=== PATIENT | male | born 1970 | race Caucasian/White ===

== ENCOUNTER 2017-08-25 06:54 | Day surgery (SDC) | payer MEDICAID, SELFPAY ==
[2017-08-22 08:19] VITALS: BP 133/74; PULSE 71; RESP 16; TEMP 37.1; O2SAT 96; BMI 29.2
--- NOTE | 2017-08-22 08:35 | SDCEKG_ITS ---
Test Reason : Blood Pressure : / mmHG Vent. Rate : 071 BPM Atrial Rate : 071 BPM P-R Int : 168 ms QRS Dur : 084 ms QT Int : 392 ms P-R-T Axes : 030 012 013 degrees QTc Int : 425 ms Normal sinus rhythm Normal ECG Confirmed by DEANDRE MARSHALL, DANIEL ([id number]), mapping editor GAVIN KNOX ([id number]) on 08/24/2017 4:09:47 PM Referred By: Ru Moore Confirmed By:DANIEL CARRERA MD
[2017-08-22 09:05] LABS: Hematocrit 46.8 % (40-54); Mean Corp Hgb Conc 36.3 g/gl (32-36); Mean Corpuscular Hgb 33.2 pg (27.0-32.0); Mean Corpuscular Volume 91.4 fL (80-94); Mean Platelet Vol. 9.2 fl (6.2-12.0); Platelet Count 262 K/mm3 (150-450); RBC Distribution Width SD 43.2 fl (35.1-43.9); Red Blood Count 5.12 M/mm3 (4.6-6.2); White Blood Count 6.5 K/mm3 (4.4-11.0)
[2017-08-22 09:06] LABS: Scan Indicated on CBC? Y/N NO
[2017-08-22 09:11] LABS: International Normalized Ratio 1.1; Prothrombin Time (Protime)PT. 13.8 SECONDS (11.7-14.9)
[2017-08-22 09:50] LABS: AST(SGOT) 34 U/L (15-37); Alanine Aminotransfer ALT/SGPT 54 U/L (16-61); Albumin, Serum 3.7 g/dL (3.2-5.0); Alkaline Phosphatase 77 U/L (45-117); Anion Gap 8 (5-15); BUN 8 mg/dL (7-18); Bilirubin, Direct 0.28 mg/dL (0.00-0.30); Calcium,Total 8.6 mg/dL (8.5-10.1); Chloride 104 mmol/L (98-107); Creatinine, Serum 0.53 mg/dL (0.70-1.30); EST Glomerular Filtration Rate 175 mL/min (>60); Est Glom Filt Rate - Afr Amer 211 mL/min (>60); Estimated Creatinine Clearance 181.54 ml/min; Globulin 3.9 g/dL (2.2-4.2); Glucose 92 mg/dL (74-106); Potassium 4.1 mmol/L (3.5-5.1); Protein, Total 7.6 g/dL (6.4-8.2); Sodium Level 137 mmol/L (136-145)
[2017-08-22 14:02] LABS: Partial Thromboplast Time 29.1 Seconds (24.1-36.2)
[2017-08-25 07:20] VITALS: BP 159/80; PULSE 71; RESP 16; TEMP 36.6; O2SAT 94; BMI 29.2
--- NOTE | 2017-08-25 09:52 | PCM.DC.GS ---
Discharge Diet: Light diet - advance as tolerated - if you have questions about your diet instructions, please talk to you doctor. Discharge Activity: May Not Drive - for 1 week or while taking narcotic pain medicine. May shower in (days): 1 Lifting Restrictions: 10 pounds Call your doctor if your incision/area has: Continuous Slow Oozing, Sudden Increased Bleeding, Increased Pain/ Swelling, Increased Redness, Foul Smelling Discharge Call your doctor if you observe: Fever of 101 or Higher Suture Line Care: Avoid Pulling/Pushing, Avoid Pinching/Bending Additional Dressing/Incision Instructions:: Change or remove dressing in 4 days. Leave steri-strips in place for 1 week. Allergies/Adverse Reactions: Allergies No Known Allergies Allergy (Verified 08/22/17 08:15) Medications to take at Discharge cilostazol 100 mg tablet 100 mg PO BID 08/02/17 colchicine 0.6 mg tablet 0.6 mg PO PRN PRN 08/02/17 simvastatin 20 mg tablet 20 mg PO DAILY 08/02/17 valsartan 80 mg tablet 80 mg PO QDAY 08/02/17 Ibuprofen 200 mg PO PRN PRN 08/22/17 Multivitamin [Daily Multiple Vitamin] 1 each PO DAILY 08/22/17 Ranitidine [Zantac] 150 mg PO PRN PRN 08/22/17 Hydrocodone Bitart/Apap 5-325 [[place] 5MG-325MG] 1 tablet PO Q6H PRN PRN 3 Days #10 tablet 08/25/17 The following prescriptions were given: Hydrocodone Bitart/Apap 5-325 [[place] 5MG-325MG] 1 tablet PO Q6H PRN PRN 3 Days #10 tablet PRN Reason: Pain Primary Care Physician: Diomedes Corona, BOIL OFF MACHINE OPERATOR CLOTH-C [Primary Care Provider] - Please Follow Up With: Ru Moore MD - [phone] When: Call to make an appointment to be seen in about 10 days.
[2017-08-25] MEDS: Cefazolin 2 GM in 0.9% Normal Saline 100 ML IV (09:56)
[2017-08-25] MEDS: Bupivacaine Mpf 0.5% 30 ML VIAL (11:00)
[2017-08-25 11:26] VITALS: BP 159/80; BP 173/86; PULSE 109; RESP 18; TEMP 36.9; O2SAT 90
--- NOTE | 2017-08-25 11:29 | OP.PCM_ITS ---
Problem List (1) Right inguinal hernia Status: Acute Report of Operation Date of Procedure: 08/25/17 Pre-Operative Diagnosis: Right inguinal hernia with bowel involvement Post-Operative Diagnosis: Very large reduced direct right inguinal hernia Surgery/Procedure Performed:: Laparoscopic right inguinal herniorrhaphy Description of Surgical Findings:: Timeout and informed consent was obtained. 47-year-old gent was taken to the operating room he was placed supine on the table. He underwent general endotracheal intubation anesthesia. The abdomen sterilely prepped draped. 0.5 % Marcaine was used as a local anesthetic. Skin sites were pre-anesthetized. A vertical infraumbilical incision was created holding sutures of 0 Vicryl placed. Varies needle inserted. Saline drop test performed. The abdomen was insufflated CO2 to a pressure of 10 mmHg pressure. Carmen trocar inserted. 10 lap scope inserted. Five-minute trochars in place in the right left lower quadrant. The left groin was solid and intact. Very large direct right anal hernia with multiple loops of bowel which were reducible. There were adhesions of omentum to the mid epigastric area the abdomen. No evidence of bowel involvement in that location. The peritoneum superior lateral to the internal ring was incised carried medially. The peritoneum was tediously dissected free the very large direct site was tediously completely dissected free were needed hemostasis obtained with hemoclips. The direct indirect and femoral area was completely bluntly dissected free were needed sharp dissection and blunt dissection was instituted. Now the very small defect at the indirect area the much larger defect in the rectal area the bladder had been identified a Bard 3D max large right-sided mesh was utilized. [id number]. Expiry date 05/24/2021. Was placed in position. It was secured laterally medially superiorly with secure strap. I did feel that I got good approximation of the mesh. The defect then was closed partly with a very large hernia sac to assure that the mesh would lie in correct position. The abdomen was allowed to deflate of CO2. The hernia repair appear to be solid and intact trochars removed and visualization the abdomen was allowed to deflate fashion and the like is with interrupted 0 Vicryl figure 8 suture skin is approximated up to 4 Monocryl subdermal stitches Steri-Strips Telfa and OpSite dressings applied sponge instrument and needle counts were reported the surgeon for correct blood loss was minimal he tired procedure well was taken to recovery in satisfactory condition Specimens none. Drains none. Blood loss minimal. Ru Moore M.D., F.A.C.S. Type of Anesthesia:: General
[2017-08-25 11:30] VITALS: BP 145/83; BP 159/80; PULSE 91; RESP 18; O2SAT 91
[2017-08-25 11:45] VITALS: BP 140/70; BP 159/80; PULSE 92; RESP 18; O2SAT 93
[2017-08-25 12:00] VITALS: BP 132/67; BP 159/80; PULSE 85; RESP 18; TEMP 37.1; O2SAT 90
[2017-08-25 13:36] VITALS: BP 159/80
== END 2017-08-25 12:45 | disposition home or self-care (01) ==
LOC: SDC 06:54 → AC 06:54
PROVIDERS: Anesthesiology; Family Provider Nurse Practitioner Family; PCP Nurse Practitioner Family; Visit Provider Surgery
PROC: (CPT 49650; principal; 2017-08-25 08:45)
DX: K40.90 Unilateral inguinal hernia, without obstruction or gangrene, not specified as recurrent (principal); I10 Essential (primary) hypertension; I73.9 Peripheral vascular disease, unspecified; E78.5 Hyperlipidemia, unspecified; F17.200 Nicotine dependence, unspecified, uncomplicated; K21.9 Gastro-esophageal reflux disease without esophagitis; Z86.711 Personal history of pulmonary embolism; Z79.899 Other long term (current) drug therapy
CPT/HCPCS: 49650; 80048; 80076; 85027; 85610; 85730; 93005; J7120; C1781; J2405

== ENCOUNTER → 2017-09-23 12:51 | Outpatient (CLI) | payer MEDICAID, SELFPAY ==
--- NOTE | 2017-10-05 08:32 | LEAS ---
Arterial Study - Arterial Study Arterial Study: Date of scan 09/23/[address] Reyes History: Patient with hypertension hyperlipidemia and right lower extremity atherosclerosis. Interpretation: Right lower extremity with decreased waveform noted at the ankle more flattened out through the digits duplex at the ankle is biphasic flow both vessels. SONY 0.5 the PT 0.46 of the DP. Left lower extremity is normal normal pulsatile flow at the ankle and out through the digits duplex with triphasic flow both vessels with an SONY 1.1 to the PT 1.09 at the DP. In impression: 1. Patient with moderate severe arterial occlusive disease of the right lower extremity an SONY 0.5. 2. No evidence of significant arterial occlusive disease at rest on the left lower extremity with an SONY 1.12
== END ==
PROVIDERS: Family Provider Nurse Practitioner Family; PCP Nurse Practitioner Family; Visit Provider Surgery Vascular Surgery
DX: M79.89 Other specified soft tissue disorders (principal); I70.211 Atherosclerosis of native arteries of extremities with intermittent claudication, right leg; M10.9 Gout, unspecified; K21.9 Gastro-esophageal reflux disease without esophagitis; I10 Essential (primary) hypertension; F17.200 Nicotine dependence, unspecified, uncomplicated; F10.10 Alcohol abuse, uncomplicated; Z86.711 Personal history of pulmonary embolism
CPT/HCPCS: 93922

== ENCOUNTER → 2017-11-16 12:57 | Outpatient (CLI) | payer MEDICAID, SELFPAY ==
--- NOTE | 2017-11-16 13:00 | VDLE_ITS ---
Reason For Study: SWELLING RIGHT LEFT GSV is normal. CFV is compressible, spontaneous, phasic, CFV is compressible, spontaneous, phasic, competent, and demonstrates normal competent and demonstrates normal augmentation. augmentation. Acute deep vein thrombosis is noted in the right femoral vein. Acute deep vein thrombosis is noted in the right popliteal vein. Acute deep vein thrombosis is noted in the right peroneal vein. Acute deep vein thrombosis is noted in the right posterior tibial vein. Procedure Exam performed in department. A preliminary report was called and/or faxed to Dr Reyes. Interpretation Summary 1. right leg DVT of FV, popliteal vein, peroneal vein, and posterior tibial vein. Right CFV normal. Ordering Physician: Socrates Reyes Referring Physician: TIMOTHY NINO Performed By: Tiffanie Oakley, DANIEL, RVT
== END ==
PROVIDERS: Family Provider Nurse Practitioner Family; PCP Nurse Practitioner Family; Visit Provider Surgery Vascular Surgery
DX: M79.89 Other specified soft tissue disorders (principal); M79.604 Pain in right leg
CPT/HCPCS: 93971

== ENCOUNTER → 2018-06-14 | Outpatient (CLI) | payer MEDICAID, SELFPAY ==
--- NOTE | 2018-06-14 12:56 | VDLE_ITS ---
Reason For Study: F/U RLE DVT RIGHT LEFT GSV is normal. CFV is compressible, spontaneous, phasic, CFV is compressible, spontaneous, phasic, competent, and demonstrates normal competent and demonstrates normal augmentation. augmentation. FV, POP V, and T/P trunk are partially compressible with intraluminal echoes and diminished blood flow and doppler signal. PTV is compressible. RT PerV is compressible. Procedure Exam performed in department. Interpretation Summary 1. Right chronic DVT in veins listed above. Ordering Physician: Socrates Reyes Referring Physician: Socrates Reyes Performed By: Roro Sharma RVT
== END | disposition home or self-care (01) ==
LOC: CVS 12:54
PROVIDERS: Family Provider Nurse Practitioner Family; PCP Nurse Practitioner Family; Referring Provider Surgery Vascular Surgery; Visit Provider Surgery Vascular Surgery
DX: M79.89 Other specified soft tissue disorders (principal); I82.90 Acute embolism and thrombosis of unspecified vein; I70.211 Atherosclerosis of native arteries of extremities with intermittent claudication, right leg; M10.9 Gout, unspecified; K21.9 Gastro-esophageal reflux disease without esophagitis; F10.10 Alcohol abuse, uncomplicated; F17.200 Nicotine dependence, unspecified, uncomplicated; Z86.711 Personal history of pulmonary embolism
CPT/HCPCS: 93971

== ENCOUNTER → 2019-03-01 09:46 | Outpatient (CLI) | payer MEDICAID, SELFPAY ==
--- NOTE | 2019-03-01 13:08 | PFTCOMP_ITS ---
COMPLETE PULMONARY FUNCTION TEST INTERPRETATION Brief HPI: Patient is a 48 year old male, currently under the care of Diomedes Corona, who presents to [facility] for complete pulmonary function tests secondary to diagnosis of dyspnea. Respiratory therapist reports good effort and reproducible results. Interpretation: Forced expiration spirometry shows no large airways obstructive ventilatory defect with an FEV1 of 70% predicted. There is no significant bronchodilator response by strict ATS criteria. Spirograms are of good quality and plateau normally. The respiratory flow volume loop shows a normal pattern. Lung volumes by body plethysmography show a normal total lung capacity at 6.67 L, 94% predicted. All other lung volumes are within normal limits. Diffusion capacity by carbon monoxide is normal at 82% predicted. The airway resistance is normal. No previous pulmonary function tests were available for review. Impression: These pulmonary function tests are grossly within normal limits.
== END ==
PROVIDERS: Family Provider Nurse Practitioner Family; PCP Nurse Practitioner Family; Referring Provider Nurse Practitioner Family; Visit Provider Nurse Practitioner Family
DX: R06.02 Shortness of breath (principal); Z72.0 Tobacco use
CPT/HCPCS: 94060; 94726; 94729

== ENCOUNTER → 2019-04-17 | Outpatient (CLI) | payer MEDICAID, SELFPAY ==
--- NOTE | 2019-04-17 10:02 | ART_ITS ---
Reason For Study: atherosclerosis Procedure A bilateral lower extremity continuous wave Doppler with analog waveform analysis and ankle brachial indexes. Left Segmental Pressures Left brachial= 163mmHg. Left posterior tibial artery = 197mmHg. Left dorsalis pedis artery = 180mmHg. The left dorsalis pedis waveforms are triphasic. The left posterior tibial artery waveforms are triphasic. Right Segmental Pressures Right brachial= 170mmHg. Right posterior tibial artery = 99mmHg. Right dorsalis pedis artery = 92mmHg. The right dorsalis pedis waveforms are monophasic. The right posterior tibial artery waveforms are monophasic. Indices The right ankle brachial index by the dorsalis pedis is .54. The right ankle brachial index by the posterior tibial artery is .58. The left ankle brachial index by the dorsalis pedis is 1.06. The left ankle brachial index by the posterior tibial artery is 1.16. Interpretation Summary 1. Right leg with monophasic flow and SONY 0.58. 2. Left leg wiht triphasic flow and SONY 1.16. Ordering Physician: Socrates Reyes Performed By: SUSAN CARMONA Tracee
== END | disposition home or self-care (01) ==
LOC: CVS 09:57
PROVIDERS: PCP Nurse Practitioner Family; Referring Provider Surgery Vascular Surgery; Visit Provider Surgery Vascular Surgery
DX: I70.211 Atherosclerosis of native arteries of extremities with intermittent claudication, right leg (principal); M10.9 Gout, unspecified; M79.89 Other specified soft tissue disorders; K21.9 Gastro-esophageal reflux disease without esophagitis; F10.10 Alcohol abuse, uncomplicated; I10 Essential (primary) hypertension; F17.200 Nicotine dependence, unspecified, uncomplicated; Z86.711 Personal history of pulmonary embolism; Z86.718 Personal history of other venous thrombosis and embolism
CPT/HCPCS: 93922

== ENCOUNTER → 2019-10-16 12:11 | Outpatient (CLI) | payer MEDICAID, SELFPAY ==
[2019-10-16 15:07] LABS: Hematocrit 52.4 % (40-54); Mean Corp Hgb Conc 34.4 g/dL (32-36); Mean Corpuscular Hgb 32.5 pg (27.0-32.0); Mean Corpuscular Volume 94.8 fL (80-94); Mean Platelet Vol. 9.9 fl (6.2-12.0); Platelet Count 287 K/mm3 (150-450); RBC Distribution Width CV 12.3 % (11.6-14.6); RBC Distribution Width SD 43.3 fl (35.1-43.9); Red Blood Count 5.53 M/mm3 (4.6-6.2); White Blood Count 6.9 K/mm3 (4.4-11.0)
[2019-10-16 15:23] LABS: ALB/GLOB Ratio 1.1 RATIO (0.9-2.4); AST(SGOT) 42 U/L (15-37); Alanine Aminotransfer ALT/SGPT 67 U/L (16-61); Alkaline Phosphatase 72 U/L (45-117); Anion Gap 4 (5-15); BUN 6 mg/dL (7-18); Calcium,Total 8.7 mg/dL (8.5-10.1); Chloride 104 mmol/L (98-107); Cholesterol 175 mg/dL (200); EST Glomerular Filtration Rate 151 mL/min (>60); Est Glom Filt Rate - Afr Amer 183 mL/min (>60); Globulin 3.6 g/dL (2.2-4.2); Glucose 106 mg/dL (74-106); High Density Lipoprotein 94 mg/dL; Protein, Total 7.6 g/dL (6.4-8.2); Sodium Level 134 mmol/L (136-145); Triglycerides 53 mg/dL; Very Low Density Lipoprotein 11 mg/dL (5-40)
== END ==
PROVIDERS: PCP Nurse Practitioner Family; Referring Provider Nurse Practitioner Family; Visit Provider Nurse Practitioner Family
DX: I10 Essential (primary) hypertension (principal); E78.5 Hyperlipidemia, unspecified; M10.9 Gout, unspecified
CPT/HCPCS: 36415; 80053; 80061; 84550; 85027

== ENCOUNTER → 2020-04-14 13:28 | Outpatient (CLI) | payer MEDICAID, SELFPAY ==
[2020-04-14 15:11] LABS: Hematocrit 52.7 % (40-54); Hemoglobin 17.8 g/dL (13.0-16.5); Mean Corp Hgb Conc 33.8 g/dL (32-36); Mean Corpuscular Volume 94.8 fL (80-94); Mean Platelet Vol. 9.8 fl (6.2-12.0); Platelet Count 209 K/mm3 (150-450); RBC Distribution Width CV 12.1 % (11.6-14.6); RBC Distribution Width SD 42.5 fl (35.1-43.9); Red Blood Count 5.56 M/mm3 (4.6-6.2); White Blood Count 6.8 K/mm3 (4.4-11.0)
[2020-04-14 15:42] LABS: ALB/GLOB Ratio 1.1 RATIO (0.9-2.4); AST(SGOT) 21 U/L (15-37); Alanine Aminotransfer ALT/SGPT 40 U/L (16-61); Alkaline Phosphatase 87 U/L (45-117); Anion Gap 8 (5-15); BUN 15 mg/dL (7-18); Calcium,Total 9.3 mg/dL (8.5-10.1); Chloride 103 mmol/L (98-107); Cholesterol 184 mg/dL (200); Creatinine, Serum 0.79 mg/dL (0.70-1.30); EST Glomerular Filtration Rate 110 mL/min (>60); Est Glom Filt Rate - Afr Amer 133 mL/min (>60); Globulin 3.8 g/dL (2.2-4.2); Glucose 123 mg/dL (74-106); High Density Lipoprotein 91 mg/dL; Potassium 4.1 mmol/L (3.5-5.1); Protein, Total 7.8 g/dL (6.4-8.2); Sodium Level 135 mmol/L (136-145); Triglycerides 31 mg/dL; Very Low Density Lipoprotein 6 mg/dL (5-40)
== END ==
PROVIDERS: PCP Nurse Practitioner Family; Referring Provider Nurse Practitioner Family; Visit Provider Nurse Practitioner Family
DX: E78.5 Hyperlipidemia, unspecified (principal); I73.9 Peripheral vascular disease, unspecified; I10 Essential (primary) hypertension
CPT/HCPCS: 36415; 80053; 80061; 85027

== ENCOUNTER → 2020-08-08 12:49 | Outpatient (CLI) | payer MEDICAID, SELFPAY ==
--- NOTE | 2020-08-08 12:53 | ART_ITS ---
Reason For Study: Atherosclerosis w/ claudication Procedure A bilateral lower extremity continuous wave Doppler with analog waveform analysis and ankle brachial indexes. Left Segmental Pressures Left brachial= 171mmHg. Left posterior tibial artery = 187mmHg. Left dorsalis pedis artery = 184mmHg. Left digit = 119 mmHg. The left dorsalis pedis waveforms are triphasic. The left posterior tibial artery waveforms are triphasic. Right Segmental Pressures Right brachial= 166mmHg. Right posterior tibial artery = 104mmHg. Right dorsalis pedis artery = 103mmHg. Right digit = 71 mmHg. The right dorsalis pedis waveforms are monophasic. The right posterior tibial artery waveforms are monophasic. Indices The right ankle brachial index by the dorsalis pedis is 0.60. The right ankle brachial index by the posterior tibial artery is 0.61. The right digital-brachial index is 0.42. The left ankle brachial index by the dorsalis pedis is 1.08. The left ankle brachial index by the posterior tibial artery is 1.09. The left digital-brachial index is 0.70. VL/Ankle Brachial Index Interpretation Summary Right leg with moderate occlusive disease with monophasic flow and an SONY 0.61. Left leg with triphasic flow and an SONY is 1.09. Ordering Physician: Socrates Reyes Referring Physician: Diomedes Corona Performed By: Arelis Mathew RVT
== END ==
PROVIDERS: PCP Nurse Practitioner Family; Referring Provider Surgery Vascular Surgery; Visit Provider Surgery Vascular Surgery
DX: I70.211 Atherosclerosis of native arteries of extremities with intermittent claudication, right leg (principal); F17.200 Nicotine dependence, unspecified, uncomplicated
CPT/HCPCS: 93922

== ENCOUNTER → 2020-10-17 11:57 | Outpatient (CLI) | payer MEDICAID, SELFPAY ==
[2020-10-17 15:17] LABS: Hematocrit 51.4 % (40-54); Hemoglobin 17.5 g/dL (13.0-16.5); Mean Corpuscular Hgb 32.8 pg (27.0-32.0); Mean Corpuscular Volume 96.4 fL (80-94); Mean Platelet Vol. 9.7 fl (6.2-12.0); Platelet Count 276 K/mm3 (150-450); RBC Distribution Width CV 12.7 % (11.6-14.6); RBC Distribution Width SD 45.3 fl (35.1-43.9); Red Blood Count 5.33 M/mm3 (4.6-6.2)
[2020-10-17 15:55] LABS: AST(SGOT) 23 U/L (15-37); Alanine Aminotransfer ALT/SGPT 44 U/L (16-61); Albumin, Serum 3.9 g/dL (3.2-5.0); Alkaline Phosphatase 77 U/L (45-117); Anion Gap 8 (5-15); BUN 7 mg/dL (7-18); BUN/Creat Ratio 10.4 RATIO (10-20); Chloride 102 mmol/L (98-107); Cholesterol 183 mg/dL (200); Creatinine, Serum 0.68 mg/dL (0.70-1.30); EST Glomerular Filtration Rate 132 mL/min (>60); Est Glom Filt Rate - Afr Amer 159 mL/min (>60); Glucose 93 mg/dL (74-106); High Density Lipoprotein 98 mg/dL; PSA,Total - Annual Screen 0.97 ng/mL (0.00-4.00); Potassium 3.8 mmol/L (3.5-5.1); Protein, Total 7.9 g/dL (6.4-8.2); Sodium Level 136 mmol/L (136-145); Triglycerides 36 mg/dL; Very Low Density Lipoprotein 7 mg/dL (5-40)
== END ==
PROVIDERS: PCP Nurse Practitioner Family; Referring Provider Nurse Practitioner Family; Visit Provider Nurse Practitioner Family
DX: I10 Essential (primary) hypertension (principal); E78.5 Hyperlipidemia, unspecified; R73.01 Impaired fasting glucose; Z12.5 Encounter for screening for malignant neoplasm of prostate
CPT/HCPCS: 36415; 80053; 80061; 83036; 84153; 85027; G0103

== ENCOUNTER 2021-04-21 13:10 | Outpatient (CLI) | payer MEDICAID, SELFPAY ==
[2021-04-21 15:14] LABS: Hematocrit 49.3 % (40-54); Hemoglobin 16.8 g/dL (13.0-16.5); Mean Corp Hgb Conc 34.1 g/dL (32-36); Mean Corpuscular Hgb 32.5 pg (27.0-32.0); Mean Corpuscular Volume 95.4 fL (80-94); Mean Platelet Vol. 9.5 fl (6.2-12.0); Platelet Count 307 K/mm3 (150-450); RBC Distribution Width SD 42.7 fl (35.1-43.9); Red Blood Count 5.17 M/mm3 (4.6-6.2); White Blood Count 6.6 K/mm3 (4.4-11.0)
[2021-04-21 15:30] LABS: AST(SGOT) 31 U/L (15-37); Alanine Aminotransfer ALT/SGPT 51 U/L (16-61); Albumin, Serum 3.8 g/dL (3.2-5.0); Alkaline Phosphatase 74 U/L (45-117); Anion Gap 7 (5-15); BUN 7 mg/dL (7-18); BUN/Creat Ratio 9.1 RATIO (10-20); Chloride 103 mmol/L (98-107); Cholesterol 174 mg/dL (200); Creatinine, Serum 0.77 mg/dL (0.70-1.30); EST Glomerular Filtration Rate 113 mL/min (>60); Est Glom Filt Rate - Afr Amer 136 mL/min (>60); Globulin 3.8 g/dL (2.2-4.2); Glucose 114 mg/dL (74-106); High Density Lipoprotein 93 mg/dL; Potassium 3.8 mmol/L (3.5-5.1); Protein, Total 7.6 g/dL (6.4-8.2); Sodium Level 135 mmol/L (136-145); Triglycerides 50 mg/dL; Uric Acid 5.4 mg/dL (3.5-7.2); Very Low Density Lipoprotein 10 mg/dL (5-40)
== END 2021-04-21 23:59 | disposition home or self-care (01) ==
LOC: MTLAB 13:11
PROVIDERS: PCP Nurse Practitioner Family; Referring Provider Nurse Practitioner Family; Visit Provider Nurse Practitioner Family
DX: D75.1 Secondary polycythemia (principal); I73.9 Peripheral vascular disease, unspecified; I10 Essential (primary) hypertension; R73.01 Impaired fasting glucose; E78.5 Hyperlipidemia, unspecified; M10.9 Gout, unspecified
CPT/HCPCS: 36415; 80053; 80061; 84550; 85027

== ENCOUNTER → 2021-10-20 | Outpatient (CLI) | payer MEDICAID, SELFPAY ==
[2021-10-20 15:05] LABS: Hematocrit 51.2 % (40-54); Mean Corp Hgb Conc 35.2 g/dL (32-36); Mean Corpuscular Hgb 33.5 pg (27.0-32.0); Mean Corpuscular Volume 95.2 fL (80-94); Mean Platelet Vol. 9.4 fl (6.2-12.0); Platelet Count 271 K/mm3 (150-450); RBC Distribution Width CV 12.8 % (11.6-14.6); Red Blood Count 5.38 M/mm3 (4.6-6.2)
[2021-10-20 15:16] LABS: Scan Indicated on CBC? Y/N YES- FLAGS NOTED
[2021-10-20 15:30] LABS: ALB/GLOB Ratio 0.9 RATIO (0.9-2.4); AST(SGOT) 32 U/L (15-37); Alanine Aminotransfer ALT/SGPT 57 U/L (16-61); Albumin, Serum 3.7 g/dL (3.2-5.0); Alkaline Phosphatase 75 U/L (45-117); Anion Gap 8 (5-15); BUN 7 mg/dL (7-18); BUN/Creat Ratio 10.3 RATIO (10-20); Calcium,Total 9.3 mg/dL (8.5-10.1); Chloride 101 mmol/L (98-107); Cholesterol 156 mg/dL (200); Creatinine, Serum 0.68 mg/dL (0.70-1.30); EST Glomerular Filtration Rate 130 mL/min (>60); Est Glom Filt Rate - Afr Amer 157 mL/min (>60); Globulin 4.1 g/dL (2.2-4.2); Glucose 98 mg/dL (74-106); High Density Lipoprotein 84 mg/dL; PSA,Total - Annual Screen 0.74 ng/mL (0.00-4.00); Protein, Total 7.8 g/dL (6.4-8.2); Sodium Level 136 mmol/L (136-145); Triglycerides 31 mg/dL; Very Low Density Lipoprotein 6 mg/dL (5-40)
[2021-10-21 11:56] LABS: Pathologist Review Reviewed
== END | disposition home or self-care (01) ==
LOC: MTLAB 11:26
PROVIDERS: PCP Nurse Practitioner Family; Referring Provider Nurse Practitioner Family; Visit Provider Nurse Practitioner Family
DX: D75.1 Secondary polycythemia (principal); I10 Essential (primary) hypertension; R73.01 Impaired fasting glucose; E78.5 Hyperlipidemia, unspecified; Z12.5 Encounter for screening for malignant neoplasm of prostate
CPT/HCPCS: 84153; 36415; 80053; 80061; 85027; G0103

== ENCOUNTER → 2021-11-16 | Outpatient (CLI) | payer MEDICAID, SELFPAY ==
--- NOTE | 2021-11-16 13:55 | ART_ITS ---
Reason For Study: Atherosclerosis Procedure A bilateral lower extremity continuous wave Doppler with analog waveform analysis and ankle brachial indexes. Left Segmental Pressures Left brachial= 151mmHg. Left posterior tibial artery = 162mmHg. Left dorsalis pedis artery = 163mmHg. Left digit = 114 mmHg. The left dorsalis pedis waveforms are triphasic. The left posterior tibial artery waveforms are triphasic. Right Segmental Pressures Right brachial= 172mmHg. Right posterior tibial artery = 84mmHg. Right dorsalis pedis artery = 88mmHg. Right digit = 70 mmHg. The right dorsalis pedis waveforms are monophasic. The right posterior tibial artery waveforms are monophasic. Indices The right ankle brachial index by the dorsalis pedis is 0.51. The right ankle brachial index by the posterior tibial artery is 0.49. The right digital-brachial index is 0.41. The left ankle brachial index by the dorsalis pedis is 0.95. The left ankle brachial index by the posterior tibial artery is 0.94. The left digital-brachial index is 0.66. VL/Ankle Brachial Index Interpretation Summary Right leg moderate occlussive disease with SONY 0.51 and left normal at rest wih t SONY 0.95. Ordering Physician: Socrates Reyes Referring Physician: Diomedes Corona Performed By: Arelis Mathew RVT
== END | disposition home or self-care (01) ==
LOC: CVS 13:54
PROVIDERS: PCP Nurse Practitioner Family; Referring Provider Surgery Vascular Surgery; Visit Provider Surgery Vascular Surgery
DX: I70.211 Atherosclerosis of native arteries of extremities with intermittent claudication, right leg (principal); F17.200 Nicotine dependence, unspecified, uncomplicated
CPT/HCPCS: 93922

== ENCOUNTER 2022-04-13 12:49 | Day surgery (SDC) | payer MEDICAID, SELFPAY ==
--- NOTE | 2022-04-13 | IMM_PTH ---
PATIENT: YUVAL WATT LOC: EN U#:[id number] AGE/SX: 52/M ROOM: RE04/13/[address]: Dr. Raoul Hong DO : 1970 BED: DIS: 04/13/2022 SPEC #: [id number] RECD: 04/15/22 14:30 STATUS: JANINA ELICIA #: [id number] [facility]: 04/13/22 00:[address]: Raoul Hong DEPT: IMMUNOHISTOCHEMISTRY RECD BY: Carolina Gomez ENTERED: 04/15/22 14:31 SP TYPE: IMMUNO OTHR DR: Diomedes Corona, MANUFACTURING ENGINEERING INTERN-C Tissues: A - Esophagus, NOS Procedures: P53 (initial) KI-67 (add) PHYSICIAN & INSTITUTION [place] [id number] SPECIMEN INFORMATION: Tissue Source: A ? Distal esophagus biopsy Clinical Info: GERD Specimen Number: [id number] CPT code: 98954, 19107 METHODOLOGY: Deparaffinized sections of prefer/formalin-fixed tissue or PAP/DQ stained slides are incubated with monoclonal/polyclonal antibodies/oligonucleotide probes. Localization is made via biotin free immunoperoxidase method. Appropriate controls are performed and reacted as expected. Results on target cell population are indicated in the following table: RESULTS: ANTIBODY / CLONE RESULT Block A P53 (DO-7) negative Ki-67 (30-9) negative These tests were developed and their performance characteristics determined by [facility]. They may not have been cleared or approved by the U.S. Food and Drug Administration. The FDA has determined that such clearance or approval is not necessary. The above immunohistochemical/dualISH markers are ordered and reviewed by the Pathologist. INTERPRETATION: A. Distal esophagus, biopsy: Negative for dysplasia. RADHA:armando 04/16/2022
[2022-04-13] MEDS: Lactated Ringers 1,000 ML 15 ML IV (12:55)
[2022-04-13 13:21] VITALS: BP 140/83; PULSE 88; RESP 16; TEMP 36.6; O2SAT 93; BMI 32.1
--- NOTE | 2022-04-13 13:37 | PCM.HP.BLA ---
History and Physical Date of Admission: 04/13/22 Chief Complaint: needs screening colonoscopy Details: YUVAL WATT, is a 51 M who presents to the office today to establish with GI for needs screening colonoscopy. He has polycythemia vera, hx of DVT, hx of PE. He reports he sees Dr Reyes vascular surgeon annually. Reports he saw steam turbine operator Dr Rendon once. He takes cilostazol 100 mg BID and rivaroxaban 15 mg QHS. He has GERD for which he takes pantoprazole 40 mg daily; acid reflux is well controlled. No prior EGD or colonoscopy. He denies nausea, vomiting, hematochezia. No dysphagia. No abdominal pain. Diarrhea when he eats hot peppers, otherwise no diarrhea. No constipation. No melena or hematochezia. ROS Const Constitutional: Positive for weight change; No fatigue ENT ENT: No difficulty swallowing Gastro GI: Positive for bloating, change in bowel habits, diarrhea, heartburn and excessive flatus; No abdominal pain, belching, change in stool character, coffee ground emesis, constipation, cramping, difficulty swallowing, feeling full early, incontinent of stools, Vomiting blood/hematemesis, Blood in stool, loose stools, Black,tarry stools, nausea/dyspepsia, pain with swallowing, vomiting or other Musc Musculoskeletal: No joint pain Skin Skin: No yellowing of the eye or itchy eyes Psych Psychiatric: No anxiety and No depression Endo Endocrine: Positive for weight change; No fatigue Aller/Imm Allergy/Immunologic: No itchy eyes Patrick/Lymp Hematologic/Lymphatic: No easy bleeding or easy bruising Exam Const General: cooperative and comfortable Nutritional Appearance: obese Orientation: alert, awake and oriented x3 HENMT Head: normal to inspection Eyes Sclera: sclerae normal Resp Effort & Inspection: normal respiratory effort GI Inspection: normal to inspection Palpation: soft, no hepatosplenomegaly, no masses and nontender Skin General: no jaundice Quality Reporting Tobacco Screening (CMS 138) Smoking Status: Current every day smoker Assessment and Plan Assessment and Plan (1) Colonoscopy planned: ?Status:?Acute ?Plan: 51 yr old male needs screening colonoscopy (this will be his first) and EGD to evaluate for reflux esophagitis and Arthur's considering GERD requiring PPI therapy. He is a smoker. He has polycythemia vera with hx of RLE DVT and PE; he is on cilostazol and xarelto, prescribed by primary care. Typically Dr Hong has pt d/c antiplatelet/anticoagulants x 3 days, but pt can continue to take those meds if prescriber deems that necessary.? Office f/u 2 wks after endoscopies. (2) GERD (gastroesophageal reflux disease): ?Status:?Acute ?Plan: as above I have examined the patient and the H&P has been reviewed. There are no clinical changes since date of exam.
--- NOTE | 2022-04-13 14:00 | COLBX_PTH ---
PATIENT: YUVAL WATT LOC: [facility] U#:[id number] AGE/SX: 52/M ROOM: RE04/13/[address]: Dr. Raoul Hong DO : 1970 BED: DIS: 04/13/2022 SPEC #: [id number] RECD: 04/13/22 15:00 STATUS: JANINA ELICIA #: [id number] [facility]: 04/13/22 14:[address]: Raoul Hong DEPT: SURGICAL PATHOLOGY RECD BY: Shamika Canales ENTERED: 04/14/22 08:43 SP TYPE: COLON BX OTHR DR: Diomedes Corona, RATE ANALYST-C Tissues: A - Esophagus, NOS B - Transverse colon C - Rectum, NOS Procedures: Special Stain Group II Surgery Specimen Level IV Alcian Blue/PAS (control) HEADER OPERATION: Colonoscopy with polypectomy, EGD ([facility] [place]) with biopsies PRE-OP DIAGNOSIS: GERD TISSUE SUBMITTED: A ? Distal esophagus biopsy, B ? Transverse colon polyp, C ? Rectum polyps biopsy and hot snare MICROSCOPIC DIAGNOSIS A. Distal esophagus, biopsy: Fragments of gastroesophageal mucosa with focal intestinal metaplasia (goblet cell metaplasia) consistent with Arthur's esophagus. Focal mild chronic inflammation. Negative for dysplasia. See comment. B. Transverse colon polyp, biopsy: Hyperplastic polyp. C. Rectal polyps, biopsy and hot snare: Fragments of hyperplastic polyp. SJ:armando 04/15/2022 COMMENT A. Alcian blue/PAS stain with matched control is used in the evaluation of the specimen. Immunohistochemistry ([id number]) for P53 and Ki-67 will be performed and results will be reported separately. MICROSCOPIC DESCRIPTION Slides are reviewed. GROSS DESCRIPTION A - Received in fixative is one container labeled with the patient's name and designated distal esophagus biopsy. The specimen consists of multiple irregular fragments of light waller soft tissue that in aggregate measure 1 x 0.3 x 0.1 cm. The specimen is totally submitted in one cassette. B - Received in fixative is one container labeled with the patient's name and designated transverse colon polyp. The specimen consists of one irregular fragment of light waller soft tissue that measures 0.8 x 0.2 x 0.1 cm. The specimen is totally submitted in one cassette. C - Received in fixative is one container labeled with the patient's name and designated rectum polyps. The specimen consists of multiple irregular fragments of light waller soft polypoid tissue that in aggregate measure 2 x 1 x 0.4 cm. The specimen is totally submitted in one cassette. / SJ:armando 04/14/2022 TC:1 CPT: 51642 x3, 86886
[2022-04-13 14:55] VITALS: BP 111/81; BP 140/83; PULSE 74; RESP 16; TEMP 36.7; O2SAT 96
--- NOTE | 2022-04-13 14:57 | OP.EGD_ITS ---
Patient Name: Primo Medina Procedure Date: 04/13/2022 2:15 PM Date of : 1970 Age: 52 Procedure: Upper GI endoscopy Indications: Heartburn Providers: Raoul Hong DO Medicines: Monitored Anesthesia Care Patient Profile: This is a 52 year old male. Refer to note in patient chart for documentation of history and physical. Patient has symptoms of chronic heartburn. Complications: No immediate complications. Procedure: Pre-Anesthesia Assessment: - Prior to the procedure, a History and Physical was performed, and patient medications and allergies were reviewed. The risks and benefits of the procedure and the sedation options and risks were discussed with the patient. All questions were answered and informed consent was obtained. Patient identification and proposed procedure were verified by the physician in the pre-procedure area. Mental Status Examination: alert and oriented. Airway Examination: normal oropharyngeal airway and neck mobility. Respiratory Examination: clear to auscultation. CV Examination: normal. Prophylactic Antibiotics: The patient does not require prophylactic antibiotics. Prior Anticoagulants: The patient has taken no previous anticoagulant or antiplatelet agents. ASA Grade Assessment: II - A patient with mild systemic disease. After reviewing the risks and benefits, the patient was deemed in satisfactory condition to undergo the procedure. The anesthesia plan was to use monitored anesthesia care (MAC). Immediately prior to administration of medications, the patient was re-assessed for adequacy to receive sedatives. The heart rate, respiratory rate, oxygen saturations, blood pressure, adequacy of pulmonary ventilation, and response to care were monitored throughout the procedure. The physical status of the patient was re-assessed after the procedure. After obtaining informed consent, the endoscope was passed under direct vision. Throughout the procedure, the patient's blood pressure, pulse, and oxygen saturations were monitored continuously. The Colonoscope was introduced through the mouth, and advanced to the second part of duodenum. The upper GI endoscopy was accomplished without difficulty. The patient tolerated the procedure well. Scope In: 2:24:44 PM Scope Out: 2:29:06 PM Total Procedure Duration Time 0 hours 4 minutes 22 seconds Findings: There were esophageal mucosal changes suggestive of short-segment Arthur's esophagus present in the lower third of the esophagus. The maximum longitudinal extent of these mucosal changes was 2 cm in length. Mucosa was biopsied with a cold forceps for histology in a targeted manner at intervals of 1 cm in the lower third of the esophagus. One specimen bottle was sent to pathology. Verification of patient identification for the specimen was done. Estimated blood loss was minimal. A medium-sized hiatal hernia was present. The exam of the stomach was otherwise normal. No gross lesions were noted in the first portion of the duodenum. Impression: - Esophageal mucosal changes suggestive of short-segment Arthur's esophagus. Biopsied. - Medium-sized hiatal hernia. - No gross lesions in the first portion of the duodenum. Recommendation: - Discharge patient to home (ambulatory). - Resume previous diet. - Continue present medications. - Await pathology results. - Repeat upper endoscopy in 1 year for surveillance. Procedure Code(s): --- Professional --- 46150, Esophagogastroduodenoscopy, flexible, transoral; with biopsy, single or multiple CPT copyright 2017 [employer]. All rights reserved. The codes documented in this report are preliminary and upon tutor coordinator review may be revised to meet current compliance requirements. Raolu Hong DO 04/13/2022 2:56:37 PM This report has been signed electronically. Number of Addenda: 0 Note Initiated On: 04/13/2022 2:15 PM
--- NOTE | 2022-04-13 14:57 | OP.CCLET_ITS ---
04/13/2022 Diomedes Corona Re : Upper GI endoscopy procedure for Primo Zapienverena Corona This procedure was performed on Wednesday, April 13, 2022. My impressions and recommendations are as follows: Impressions : - Esophageal mucosal changes suggestive of short-segment Arthur's esophagus. Biopsied. - Medium-sized hiatal hernia. - No gross lesions in the first portion of the duodenum. Recommendations : - Discharge patient to home (ambulatory). - Resume previous diet. - Continue present medications. - Await pathology results. - Repeat upper endoscopy in 1 year for surveillance. My findings are described in the full procedure note, which is enclosed. If I can be of further assistance, please feel free to contact me at . Sincerely, Raoul Hong, 04/13/2022 2:56:37 PM This report has been signed electronically.
[2022-04-13 15:00] VITALS: BP 120/73; BP 140/83; PULSE 81; RESP 16; O2SAT 96
--- NOTE | 2022-04-13 15:00 | OP.CCLET_ITS ---
04/13/2022 Diomedes Corona Re : Colonoscopy procedure for Primo Zapienr Chloe This procedure was performed on Wednesday, April 13, 2022. My impressions and recommendations are as follows: Impressions : - Eight 1 to 2 mm polyps in the rectum, in the sigmoid colon and in the transverse colon, removed with a hot snare. Resected and retrieved. Recommendations : - Repeat colonoscopy in 3 years for surveillance. - Continue present medications. My findings are described in the full procedure note, which is enclosed. If I can be of further assistance, please feel free to contact me at . Sincerely, Raoul Hong, 04/13/2022 2:59:36 PM This report has been signed electronically.
--- NOTE | 2022-04-13 15:00 | OP.COLON_ITS ---
Patient Name: Primo Medina Procedure Date: 04/13/2022 2:29 PM Date of : 1970 Age: 52 Procedure: Colonoscopy Indications: Screening for colorectal malignant neoplasm Providers: Raoul Hong DO Medicines: Monitored Anesthesia Care Patient Profile: This is a 52 year old male. Refer to note in patient chart for documentation of history and physical. Patient has symptoms of chronic heartburn. Last Colonoscopy: none. The patient's first colonoscopy is today. Complications: No immediate complications. Procedure: Pre-Anesthesia Assessment: - Prior to the procedure, a History and Physical was performed, and patient medications and allergies were reviewed. The risks and benefits of the procedure and the sedation options and risks were discussed with the patient. All questions were answered and informed consent was obtained. Patient identification and proposed procedure were verified by the physician in the pre-procedure area. Mental Status Examination: alert and oriented. Airway Examination: normal oropharyngeal airway and neck mobility. Respiratory Examination: clear to auscultation. CV Examination: normal. Prophylactic Antibiotics: The patient does not require prophylactic antibiotics. Prior Anticoagulants: The patient has taken no previous anticoagulant or antiplatelet agents. ASA Grade Assessment: II - A patient with mild systemic disease. After reviewing the risks and benefits, the patient was deemed in satisfactory condition to undergo the procedure. The anesthesia plan was to use monitored anesthesia care (MAC). Immediately prior to administration of medications, the patient was re-assessed for adequacy to receive sedatives. The heart rate, respiratory rate, oxygen saturations, blood pressure, adequacy of pulmonary ventilation, and response to care were monitored throughout the procedure. The physical status of the patient was re-assessed after the procedure. After I obtained informed consent, the scope was passed under direct vision. Throughout the procedure, the patient's blood pressure, pulse, and oxygen saturations were monitored continuously. The Colonoscope was introduced through the anus and advanced to the terminal ileum. The colonoscopy was performed without difficulty. The patient tolerated the procedure well. The quality of the bowel preparation was good. Scope In: 2:31:29 PM Scope Withdrawal Time 0 hours 15 minutes 31 seconds Scope Out: 2:50:01 PM Total Procedure Duration Time 0 hours 18 minutes 32 seconds Findings: The perianal and digital rectal examinations were normal. Eight sessile polyps were found in the rectum, sigmoid colon and transverse colon. The polyps were 1 to 2 mm in size. These polyps were removed with a hot snare. Resection and retrieval were complete. Verification of patient identification for the specimen was done. Estimated blood loss was minimal. Impression: - Eight 1 to 2 mm polyps in the rectum, in the sigmoid colon and in the transverse colon, removed with a hot snare. Resected and retrieved. Recommendation: - Repeat colonoscopy in 3 years for surveillance. - Continue present medications. Procedure Code(s): --- Professional --- 34919, Colonoscopy, flexible; with removal of tumor(s), polyp(s), or other lesion(s) by snare technique CPT copyright 2017 [employer]. All rights reserved. The codes documented in this report are preliminary and upon perinatal coordinator review may be revised to meet current compliance requirements. Raoul Hong DO 04/13/2022 2:59:36 PM This report has been signed electronically. Number of Addenda: 0 Note Initiated On: 04/13/2022 2:29 PM
[2022-04-13 15:05] VITALS: BP 121/80; BP 140/83; PULSE 79; RESP 16; O2SAT 96
[2022-04-13 15:10] VITALS: BP 129/78; BP 140/83; PULSE 78; RESP 16; TEMP 37.1; O2SAT 97
[2022-04-13 15:51] VITALS: BP 140/83
== END 2022-04-13 15:52 | disposition home or self-care (01) ==
LOC: EN 12:50 → AC 12:51
PROVIDERS: PCP Nurse Practitioner Family; Referring Provider Nurse Practitioner Family; Visit Provider Internal Medicine Gastroenterology
PROC: 0DJD8ZZ Inspection of Lower Intestinal Tract, Via Natural or Artificial Opening Endoscopic (ICD-10-PCS; CPT 45378; principal; 2022-04-13 13:55)
DX: Z12.11 Encounter for screening for malignant neoplasm of colon (principal); D45 Polycythemia vera; K31.A0 Gastric intestinal metaplasia, unspecified; K44.9 Diaphragmatic hernia without obstruction or gangrene; K21.9 Gastro-esophageal reflux disease without esophagitis; K62.1 Rectal polyp; R19.7 Diarrhea, unspecified; R12 Heartburn; R14.3 Flatulence; Z79.01 Long term (current) use of anticoagulants; Z79.899 Other long term (current) drug therapy; Z86.718 Personal history of other venous thrombosis and embolism; I10 Essential (primary) hypertension; E78.5 Hyperlipidemia, unspecified
CPT/HCPCS: 45385; 43239; 88305; 88313; 88341; 88342; J7120; J2405

== ENCOUNTER → 2022-04-21 | Outpatient (CLI) | payer MEDICAID, SELFPAY ==
[2022-04-21 15:37] LABS: Hematocrit 48.8 % (40-54); Hemoglobin 16.9 g/dL (13.0-16.5); Mean Corp Hgb Conc 34.6 g/dL (32-36); Mean Corpuscular Hgb 33.1 pg (27.0-32.0); Mean Corpuscular Volume 95.7 fL (80-94); Mean Platelet Vol. 9.5 fl (6.2-12.0); Platelet Count 317 K/mm3 (150-450); RBC Distribution Width CV 11.8 % (11.6-14.6); RBC Distribution Width SD 41.1 fl (35.1-43.9); White Blood Count 9.2 K/mm3 (4.4-11.0)
[2022-04-21 16:04] LABS: ALB/GLOB Ratio 0.8 RATIO (0.9-2.4); AST(SGOT) 16 U/L (15-37); Alanine Aminotransfer ALT/SGPT 25 U/L (16-61); Albumin, Serum 3.6 g/dL (3.2-5.0); Alkaline Phosphatase 94 U/L (45-117); Anion Gap 9 (5-15); BUN 7 mg/dL (7-18); BUN/Creat Ratio 10.2 RATIO (10-20); Calcium,Total 9.3 mg/dL (8.5-10.1); Chloride 101 mmol/L (98-107); Cholesterol 169 mg/dL (200); Creatinine, Serum 0.69 mg/dL (0.70-1.30); EST Glomerular Filtration Rate 128 mL/min (>60); Est Glom Filt Rate - Afr Amer 155 mL/min (>60); Globulin 4.4 g/dL (2.2-4.2); Glucose 110 mg/dL (74-106); High Density Lipoprotein 81 mg/dL; Potassium 3.9 mmol/L (3.5-5.1); Sodium Level 136 mmol/L (136-145); Triglycerides 53 mg/dL; Very Low Density Lipoprotein 11 mg/dL (5-40)
== END | disposition home or self-care (01) ==
PROVIDERS: PCP Nurse Practitioner Family; Visit Provider Nurse Practitioner Family
DX: I10 Essential (primary) hypertension (principal); I73.9 Peripheral vascular disease, unspecified; E78.5 Hyperlipidemia, unspecified; R73.01 Impaired fasting glucose; D75.1 Secondary polycythemia
CPT/HCPCS: 36415; 80053; 80061; 85027

== ENCOUNTER → 2022-10-20 | Outpatient (CLI) | payer MEDICARE, MEDICAID, SELFPAY ==
[2022-10-20 15:26] LABS: Hematocrit 52.5 % (40-54); Mean Corp Hgb Conc 34.5 g/dL (32-36); Mean Corpuscular Hgb 33.1 pg (27.0-32.0); Mean Platelet Vol. 9.5 fl (6.2-12.0); Platelet Count 335 K/mm3 (150-450); RBC Distribution Width CV 12.1 % (11.6-14.6); RBC Distribution Width SD 43.4 fl (35.1-43.9); Red Blood Count 5.47 M/mm3 (4.6-6.2); White Blood Count 6.8 K/mm3 (4.4-11.0)
[2022-10-20 15:42] LABS: ALB/GLOB Ratio 0.9 RATIO (0.9-2.4); AST(SGOT) 23 U/L (15-37); Alanine Aminotransfer ALT/SGPT 38 U/L (16-61); Albumin, Serum 3.5 g/dL (3.2-5.0); Alkaline Phosphatase 81 U/L (45-117); Anion Gap 8 (5-15); BUN 6 mg/dL (7-18); BUN/Creat Ratio 9.4 RATIO (10-20); Calcium,Total 9.1 mg/dL (8.5-10.1); Chloride 104 mmol/L (98-107); Cholesterol 163 mg/dL (200); Creatinine, Serum 0.64 mg/dL (0.70-1.30); EST Glomerular Filtration Rate 139 mL/min (>60); Est Glom Filt Rate - Afr Amer 168 mL/min (>60); Globulin 4.1 g/dL (2.2-4.2); Glucose 97 mg/dL (74-106); High Density Lipoprotein 72 mg/dL; PSA,Total - Annual Screen 0.77 ng/mL (0.00-4.00); Potassium 3.8 mmol/L (3.5-5.1); Protein, Total 7.6 g/dL (6.4-8.2); Sodium Level 137 mmol/L (136-145); Triglycerides 61 mg/dL; Very Low Density Lipoprotein 12 mg/dL (5-40)
[2022-10-20 15:49] LABS: Microalbumin,Random Urine 6.2 mg/L (NO RANGE EST.); Microalbumin:Creatinine Ratio 10.7 mg/g CRE (<30 mg/g CRE)
[2022-10-20 15:56] LABS: Hemoglobin A1c 5.1 % (3.8-5.6)
[2022-10-20 15:57] LABS: Hemoglobin 18.1 g/dL (13.0-16.5)
== END | disposition home or self-care (01) ==
LOC: MTLAB 12:54
PROVIDERS: PCP Nurse Practitioner Family; Referring Provider Nurse Practitioner Family; Visit Provider Nurse Practitioner Family
DX: R73.01 Impaired fasting glucose (principal); I73.9 Peripheral vascular disease, unspecified; D75.1 Secondary polycythemia; I10 Essential (primary) hypertension; E78.5 Hyperlipidemia, unspecified; Z12.5 Encounter for screening for malignant neoplasm of prostate
CPT/HCPCS: 36415; 80053; 80061; 82043; 82570; 83036; 84153; 85027; G0103

== ENCOUNTER → 2022-12-29 | Outpatient (CLI) | payer MEDICARE, MEDICAID, SELFPAY ==
--- NOTE | 2022-12-29 13:49 | ART_ITS ---
Reason For Study: Atherosclerosis Procedure A bilateral lower extremity continuous wave Doppler with analog waveform analysis and ankle brachial indexes. Left Segmental Pressures Left brachial= 152mmHg. Left posterior tibial artery = 191mmHg. Left dorsalis pedis artery = 172mmHg. Left digit = 109 mmHg. The left posterior tibial artery waveforms are triphasic. The left dorsalis pedis waveforms are triphasic. Right Segmental Pressures Right brachial= 173mmHg. Right posterior tibial artery = 99mmHg. Right dorsalis pedis artery = 87mmHg. Right digit = 55 mmHg. The right posterior tibial artery waveforms are monophasic. The right dorsalis pedis waveforms are monophasic. Indices The right ankle brachial index by the posterior tibial artery is 0.57. The right ankle brachial index by the dorsalis pedis is 0.50. The right digital-brachial index is 0.32. The left ankle brachial index by the posterior tibial artery is 1.10. The left ankle brachial index by the dorsalis pedis is 0.99. The left digital-brachial index is 0.63. VL/Ankle Brachial Index Interpretation Summary Right moderate disease at rest with SONY 0.57 and left triphasic flow and normal at 1.1. Digits 0.32 and 0.63. Ordering Physician: Socrates Reyes Referring Physician: MD Socrates Reyes Performed By: Dennis Kinney RVT
== END | disposition home or self-care (01) ==
PROVIDERS: PCP Nurse Practitioner Family; Referring Provider Surgery Vascular Surgery; Visit Provider Surgery Vascular Surgery
DX: I70.211 Atherosclerosis of native arteries of extremities with intermittent claudication, right leg (principal); F17.200 Nicotine dependence, unspecified, uncomplicated
CPT/HCPCS: 93922

== ENCOUNTER → 2023-04-26 | Outpatient (CLI) | payer MEDICARE, MEDICAID, SELFPAY ==
--- OUTSIDE RECORDS SUMMARY | 2023-04-26 14:34 | XMS RPT_ITS | CCD ---
Author Name Unknown Address [address] [place] [address] Organization [facility] Care Team Providers Care Economics Teacher Name Role Phone Timothy Corona CNP Primary Care Provider TIMOTHY CORONA Primary Care Unavailable LAW MEJIA Referring Unavailable TIMOTHY CORONA Primary Care Unavailable LAW MEJIA Referring Unavailable LAW MEJIA Attending Unavailable TIMOTHY CORONA Referring Unavailable TIMOTHY CORONA Primary Care Unavailable Medications Completed/Discontinued Medications Medication Drug Class(es) Dates Sig (Normalized) Sig (Original) cilostazol 100 mg oral tablet (3 sources) Phosphodiesterase 3 Inhibitor Start: 12-25-2017 take 1 tablet by mouth once daily cilostazol (PLETAL) 100 mg tablet Take 100 mg by mouth once daily. 11 12/25/2017 Active Problems Problem Classification Problem Date Documented Da te Episodic/Chronic Essential hypertension (2 sources) Essential (primary) hypertension; Translations: [Essential hypertension] Onset: 11-11-2022 11-11-2022 Chronic Other hematologic conditions (1 source) Secondary polycythemia; Translations: [Secondary polycythemia] Onset: 11-11-2022 Episodic Other hematologic conditions (1 source) Secondary polycythemia; Translations: [Secondary polycythemia] 11-11-2022 Episodic Peripheral and visceral atherosclerosis (2 sources) Peripheral vascular disease, unspecified; Translations: [Peripheral vascular disease] Onset: 11-11-2022 11-11-2022 Chronic Phlebitis; thrombophlebitis and thromboembolism (4 sources) 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; Translations: [Chronic embolism and thrombosis of right femoral vein] Onset: 01-04-2018 01-04-2018 Chronic Substance-related disorders (5 sources) Smoker; Translations: [Nicotine dependence, unspecified, uncomplicated] Onset: 01-04-2018 01-04-2018 Chronic Results Test Name Value Interpretation Reference Range Facil ity Encounters Encounter Date Encounter Type Care Provider Facility Start: 11-12-2022 Telephone encounter Law lucero DO Work Phone: Hematology/Oncology Procedures Date Procedure Procedure Detail Performing Clinician Start: 11-11-2022 Us retroperitoneal r eal time w/image complete Law Mejia DO Work Phone: Plan of Treatment Date Care Activity Detail Author Start: 11-05-2022 Influenza vaccination C [facility] Start: 03-07-2022 [facility] Start: 2019 Influenza vaccination LUNG CANCER [facility] Start: 2019 SHINGRIX VACCINE (1 of 2) SHINGRIX V ACCINE (1 of 2) [facility] Start: 2014 COLOGUARD (FIT-DNA) COLOGUARD (FIT-D NA) [facility] Start: 2014 Colonoscopy COLONOSCOPY [facility] Start: 2014 COLORECTAL CANCER SCREENING COLORECTAL CANCER SCREENING [facility] Start: [address] COLONOGRAPHY [facility] Start: 2014 DIABETES SCREEN DIABETES SCREEN [facility] Start: 2014 Diabetes Screening Diabetes Screenin g [facility] Start: 2014 FECAL OCCULT BLOOD FECAL OCCULT BLOO D [facility] Start: 2014 SIGMOIDOSCOPY SIGMOIDOSCOPY [facility] Start: 2004 Lipid 1996 panel - S leoncio or Plasma Lipid Screening [facility] Start: 2004 LIPID SCREEN LIPID SCREEN [facility] Start: 1988 Urine microalbumin profile [facility] Start: 1987 HEPATITIS C SCREENING HEPATITIS C [facility] Start: 1987 HIV SCREENING HIV SCREENING [facility] Start: 1975 PNEUMOCOCCAL (1 - PCV) PNEUMOCOCCAL (1 - PCV) [facility] Start: 1975 Pneumococcal vaccination Pneum ococcal Vaccine (1 - PCV) [facility] Start: 1970 COVID-19 VACCINE (#1) COVID-19 VACCI NE (#1) [facility] Start: 1970 HEPATITIS B (1 of 3 - 3-dose series) HEPATITIS B (1 of 3 - 3-dose series) [facility] Start: 1970 Hepatitis B Vaccine (1 of 3 - 3-dose series) Hepatitis B Vaccine (1 of 3 - 3-dose series) [facility] Payers Date Payer Category Payer Medicaid MEDICAID [facility] MEDICAID [id number] 2022-Present [phone] [address] [place] [address] Medicaid [id number] 2022 Medicaid [id number] 2022 Medicare MEDICARE MEDICAR E A AND B [id number] 2022-Present [phone] [address] [address] [place] [address] Medicare [id number] 2022 Medicare [id number] Social History Date Type Detail Facility Start: 01-04-[address] [facility] History of tobacco use Cigarette Smoker C [facility] Start: 01-04-2018 End: 11-05-2022 Cigarettes smoked current (pack per day) - Reported 1 [facility] Start: 01-04-2018 Tobacco use and exposure Forme r smokeless tobacco user [facility] End: 01-05-2008 History of tobacco use Snuff User [facility] Start: 11-05-2022 Alcohol intake Current drinke r of alcohol (finding) [facility] Start: 11-05-2022 Tobacco use panel [facility] National Score (1-10 0), lower number is lower risk 80 [facility] Start: 01-04-2019 Alcohol Comment beer daily [facility] Start: 1970 Sex Assigned At Not on file C [facility] Note 11-15-2022 Telephone Encounter - Cristina Ladd LPN - 11/15/2022 9:33 AM EDTTelephone Encounter - Melany Gonzales LPN - 11/15/2022 9:23 AM EDTTelephone Encounter - Saarh Olivera - 11/14/2022 12:01 PM EDT Note Date & Type Note Facility 11-15-2022 Miscellaneous Notes Formattin g of this note might be different from the original. Notified pt, voices understanding. Faxed results and this phone note to PCP. Cristina Ladd LPN Left message on identified voicemail to contact office for ultrasound results. Melany Gonzales LPN Unable to reach patient and left a message for patient to call back to receive the below message from . requested information has been faxed to PCP Timothy Corona CNP at [phone] When patient calls back please relay below message from and then note and close encounter. Sarah Wells Can let him know ultrasound of the kidneys normal. He does not have to follow-up here. He can follow-up with his PCP. Again, would strongly encouraged him to try to quit smoking. Please fax a copy of this note along with the lab work I recently ordered and the ultrasound results to his PCP. Law Mejia DO documented in this encounter [facility] Progress note 11-11-2022 Note Date & Type Note Facility 11-11-2022 Note HNO ID: [id number] Author: Yissel Diamond RDMS Service: ? Author Type: Folder And Notcher Type: Progress Notes Filed: 11/11/2022 4:15 PM Note Text: Radiology Service Progress Note PATIENT NAME: Primo Medina DATE OF SERVICE: November 11, 2022 TIME: 4:15 PM PATIENT IDENTITY VERIFICATION COMPLETED USING TWO (2) IDENTIFIERS: Name and Date of confirmed by patient verbally. FALL SCREENING: Has the patient had 2 falls in the last year or 1 fall with injury or currently using an Ambulatory Assistive Device (Walker, Cane, Wheelchair, Crutches, etc.)? No PATIENT GENDER DATA: Male PATIENT RELEVANT IMPLANT DATA REVIEWED: Not Applicable RADIOLOGY DEPARTMENT: Ultrasound PERIPHERAL IV DATA: Not applicable SIGNED BY: Yissel Diamond RDMS Tracee November 11, 2022 4:15 PM [facility] History of Present illness Narrative 11-11-2022 Yissel Diamond RDMS - 11/11/2022 2:30 PM EDT Note Date & Type Note Facility 11-11-2022 History of Presen t illness Narrative Radiology Service Progress Note PATIENT NAME: Primo Medina DATE OF SERVICE: November 11, 2022 TIME: 4:15 PM PATIENT IDENTITY VERIFICATION COMPLETED USING TWO (2) IDENTIFIERS: Name and Date of confirmed by patient verbally. FALL SCREENING: Has the patient had 2 falls in the last year or 1 fall with injury or currently using an Ambulatory Assistive Device (Walker, Cane, Wheelchair, Crutches, etc.)? No PATIENT GENDER DATA: Male PATIENT RELEVANT IMPLANT DATA REVIEWED: Not Applicable RADIOLOGY DEPARTMENT: Ultrasound PERIPHERAL IV DATA: Not applicable SIGNED BY: Yissel Diamond RDMS Tracee November 11, 2022 4:15 PM documented in this encounter [facility] Note 11-09-2022 Telephone Encounter - Melany Gonzales LPN - 11/09/2022 12:40 PM EDTTelephone Encounter - Cristina Ladd LPN - 11/09/2022 9:27 AM EDTTelephone Encounter - Law Mejia DO - 11/08/2022 11:05 AM EDT Note Date & Type Note Facility 11-09-2022 Miscellaneous Notes Formattin g of this note might be different from the original. Spoke with pt. He is aware of lab results and the need to quit smoking. Pt. Voiced understanding. Questioned if he is to keep ultrasound appt. For . Informed he is. Melany Gonzales LPN Note lab and OV faxed to PCP. Left message on pt VM to return call regarding labs. Cristina Ladd LPN Can let him know that his repeat CBC here looked better although not normal. Carboxyhemoglobin level demonstrates that the increase in hemoglobin and hematocrit he experiences from time to time is definitely due to smoking. He should make every effort he can to quit. Please fax a copy of this note along with the recent lab work to his primary care physician. Law Mejia DO documented in this encounter [facility] Progress note 11-05-2022 Note Date & Type Note Facility 11-05-2022 Note HNO ID: [id number] Author: Law Mejia DO Service: ? Author Type: Physician Type: Progress Notes Filed: 11/05/2022 1:20 PM Note Text: Diagnosis: 1) Recurrent DVT. On indefinite anticoagulation. 2) Elevated Hgb/Hct. HPI: The patient is a 52 yo male with PMH significant for PAD, HTN, gout (~episode a year) and smoking. summer, patient had onset of right posterior lower chest pain. Presented to ED at [facility] with that complaint. CT scan showed normal enhancement of the main pulmonary artery and the right and left pulmonary arteries but a filling defect was suspected in the right lower lobe peripherally. Was discharged from ED with Rx for antibiotics and Xarelto for ~6 months. Underwent evaluation for right inguinal hernia which included a CT scan the abdomen and pelvis on 11/23/2016. The study was unremarkable except for right inguinal hernia. Underwent right sided inguinal hernia repair with mesh at [facility] 08/25/2017. About a week later, was on a walk and had typical claudication of the calf, but also noticed swelling of the leg. He did not seek out medical attention for this until he was seen for routine visit by Was seen by Dr. Reyes in November. Patient complained of the swelling and US obtained 11/16/2017 that showed an acute DVT in the right femoral, right popliteal, right peroneal and right posterior tibial veins. Patient went back on anticoagulation with Xarelto. Presents for ongoing hematologic management. Interim history: Referred back for persistent increase in HANDH. Continues on Xarelto. No bleeding issues. Bleeds easily with minor skin tears. Smoking about 1 to 1 1/2 ppd. Over a year since waking up at night to catch breath. No symptoms of chest pain/pressure, palpitations, shortness of breath at rest or with exertion. No leg swelling. Had colonoscopy 04/2022. Polyps. PMH, medications and allergies personally reviewed by me today. Any changes documented in appropriate section. ROS: Constitutional: Denies episodes of fever and night sweats. Not significantly fatigued. Normal appetite. Neuro: Denies ARANA, vertigo, dizziness and imbalance. Denies symptoms of neuropathy. HEENT: No recent change in voice, vision or hearing. Resp: Denies cough, wheeze and hemoptysis. Denies shortness of breath at rest. Denies CORREA. CVS: Denies exertional chest pain, PND, orthopnea and LE edema. Claudication as above. GI: Denies dysgeusia. Denies symptoms of stomatitis. Denies dysphagia and odynophagia. Denies reflux, n/v, change in bowel habits and abdominal pain. : Denies dysuria or gross hematuria. No symptoms of bladder outlet obstruction. Endo: Denies hot flashes. Denies polyuria and polydipsia. Denies heat and cold intolerance. Musculoskeletal: Denies bone, back, joint and muscular pain. Derm: Denies rash. Denies jaundice and diffuse pruritis. Heme: See above. Psych: Normal mood. PHYSICAL EXAM: Vitals: Blood pressure 175/83, pulse 80, temperature 37.2 ?C (99 ?F), height 178 cm (5' 10.08 ), weight 103 kg (227 lb), SpO2 95 %. Well-appearing and in no acute distress. EYES: Sclerae are anicteric bilaterally. RESPIRATORY: Inspiratory breath sounds are of diminished intensity in all varela. No rales, wheezes or rhonchi. CARDIOVASCULAR: Rhythm is regular. ABDOMEN: The abdomen is nondistended. No organomegaly. Extremities: No swelling or edema noted today. SKIN: No jaundice. LABS: Outside CBC 04/2022 showed a white count of 9200. RBC count 5,100,000/mcL. Hemoglobin 16.9 g/dL with a hematocrit of 48.8%. Platelet count 317,000. More recently a CBC on October 20, 2022 showed a white count 6800. No differential. RBC count 5,470,000/mcL. Hemoglobin 18.1 g/dL with a hematocrit of 52.5%. Platelet count 335,000. ASSESSMENT/PLAN: (I82.511) Chronic deep vein thrombosis (DVT) of femoral vein of right lower extremity (HCC) (primary encounter diagnosis) Assessment: -In summary the patient is a 52-year-old male who had 2 episodes of venous thromboembolism. He has comorbid conditions including peripheral arterial disease and continued smoking as well as hypertension. -Benefit of ongoing anticoagulation outweighs risk. Plan: -Continue management per his PCP. (D75.1) Polycythemia Assessment: -Previous MPN panel negative. -His HANDH fluctuates and RBC count not elevated. -Continues to smoke but now up to a pack to a pack and half a day. He has greater than [id number]-[id number] history of smoking and is over the age of 50. -No previous testing for obstructive sleep apnea. -He has uncontrolled hypertension. Does not take blood pressure at home. -Qualifies to start annual low-dose CT screening for lung cancer. Plan: -Recommend his PCP order annual low-dose screening CT chest. -Recheck CBC today. -Carboxy hemoglobin on venous blood sample. -Ultrasound kidneys. -UA today. (F17.200) Smoking Assessment: -Again discussed smoking cessation with him. (more content not included)... [facility] Evaluation note Note Date & Type Note Facility documented in this encounter [facility] Reason for referral (narrative) Diagnostic Procedure Only (Routine) - Closed Note Date & Type Note Facility Referral ID Status Reason Start Date Expiration Date V isits Requested Visits Authorized [id number] Closed Auto-Generate d Referral 11/05/2022 12/05/2023 1 1 [facility] Summary Purpose Family History No Family History Records FoundNo Family History Records FoundNo Family History Records FoundNo Family History Records Found Advance Directives No Advanced Directives Records FoundNo Advanced Directives Records FoundNo Advanced Directives Records FoundNo Advanced Directives Records Found Additional Source Comments (unrecognized sect ion and content) No Status Records FoundNo Status Records FoundNo Status Records FoundNo Status Records Found INFORMATION SOURCE (unrecogn ized section and content) DATE CREATED AUTHOR AUTHOR'S ORGANIZ ATION 02/03/2019 [facility] ([place]) DATE CREATED AUTHOR AUTHOR'S ORGANIZ ATION 02/10/2019 [facility] ([place]) DATE CREATED AUTHOR AUTHOR'S ORGANIZ ATION 11/15/2022 [facility] Source Comments (unrecognize d section and content) In the event this informatio n is protected by the Federal Confidentiality of Alcohol and Drug Abuse Patient Records regulations: The Federal rules restrict any use of the information to criminally investigate or prosecute any alcohol or drug abuse patient.[facility] the event this information is protected by the Federal Confidentiality of Alcohol and Drug Abuse Patient Records regulations: The Federal rules restrict any use of the information to criminally investigate or prosecute any alcohol or drug abuse patient.[facility] the event this information is protected by the Federal Confidentiality of Alcohol and Drug Abuse Patient Records regulations: The Federal rules restrict any use of the information to criminally investigate or prosecute any alcohol or drug abuse patient.[facility] Reason for Visit (unrecogniz ed section and content) Reason Comments Results Reason Comments Radiology US Specialty Diagnoses / Procedures Referred By Contac t Referred To Contact US IMAGING Diagnoses Smoking PVD (peripheral vascular disease) (HCC) Secondary polycythemia Essential (primary) hypertension Procedures US KIDNEY/BLADDER US RETROPERITONEAL REAL TIME W/IMAGE COMPLETE Law Mejia, DO [address] [place] [address] [place] [address] Referral ID Status Reason Start Date Expiration Date V isits Requested Visits Authorized [id number] Closed Auto-Generate d Referral 11/05/2022 12/05/2023 1 1 Care Teams (unrecognized sec tion and content) Economics Teacher Relationship Specialty Start Date End Date Timothy Corona, INSIDE SALES PROFESSIONAL PCP - General Family Medicine 12/27/17 FOR RECORDS PERTAINING TO PATIENTS WHO ARE OR HAVE BEEN ENROLLED IN A CHEMICAL DEPENDENCY/SUBSTANCEABUSE PROGRAM, SOME INFORMATION MAY BE OMITTED. This clinical summary was aggregated from multiple sources. Caution should be exercised in using it in the provision of clinical care. This summary normalizes information from multiple sources, and as a consequence, information in this document may materially change the coding, format and clinical context of patient data. In addition, data may be omitted in some cases. CLINICAL DECISIONS SHOULD BE BASED ON THE PRIMARY CLINICAL RECORDS. [employer] [facility]. provides no warranty or guarantee of the accuracy or completeness of information in this document.
[2023-04-26 15:28] LABS: Hematocrit 49.6 % (40-54); Hemoglobin 17.1 g/dL (13.0-16.5); Mean Corp Hgb Conc 34.5 g/dL (32-36); Mean Corpuscular Volume 95.8 fL (80-94); Mean Platelet Vol. 9.4 fl (6.2-12.0); Platelet Count 266 K/mm3 (150-450); RBC Distribution Width CV 11.8 % (11.6-14.6); Red Blood Count 5.18 M/mm3 (4.6-6.2); White Blood Count 6.8 K/mm3 (4.4-11.0)
[2023-04-26 15:55] LABS: Microalbumin,Random Urine < 5.0 mg/L (NO RANGE EST.)
[2023-04-26 16:01] LABS: ALB/GLOB Ratio 1.1 RATIO (0.9-2.4); AST(SGOT) 22 U/L (15-37); Alanine Aminotransfer ALT/SGPT 33 U/L (16-61); Albumin, Serum 3.8 g/dL (3.2-5.0); Alkaline Phosphatase 75 U/L (45-117); Anion Gap 8 (5-15); BUN 7 mg/dL (7-18); BUN/Creat Ratio 10.7 RATIO (10-20); Calcium,Total 8.9 mg/dL (8.5-10.1); Chloride 102 mmol/L (98-107); Cholesterol 173 mg/dL (200); Creatinine, Serum 0.65 mg/dL (0.70-1.30); EST Glomerular Filtration Rate 135 mL/min (>60); Est Glom Filt Rate - Afr Amer 164 mL/min (>60); Globulin 3.6 g/dL (2.2-4.2); Glucose 103 mg/dL (74-106); High Density Lipoprotein 82 mg/dL; Potassium 3.9 mmol/L (3.5-5.1); Protein, Total 7.4 g/dL (6.4-8.2); Sodium Level 133 mmol/L (136-145); Triglycerides 65 mg/dL; Uric Acid 5.7 mg/dL (3.5-7.2); Very Low Density Lipoprotein 13 mg/dL (5-40)
== END | disposition home or self-care (01) ==
LOC: MTLAB 12:53
PROVIDERS: PCP Nurse Practitioner Family; Referring Provider Nurse Practitioner Family; Visit Provider Nurse Practitioner Family
DX: I10 Essential (primary) hypertension (principal); I73.9 Peripheral vascular disease, unspecified; D75.1 Secondary polycythemia; E78.5 Hyperlipidemia, unspecified; R73.01 Impaired fasting glucose; M10.9 Gout, unspecified
CPT/HCPCS: 36415; 80053; 80061; 82043; 82570; 84550; 85027

== ENCOUNTER → 2023-10-21 | Outpatient (CLI) | payer MEDICARE, SELFPAY ==
[2023-10-21 15:23] LABS: Hematocrit 52.2 % (40-54); Hemoglobin 18.4 g/dL (13.0-16.5); Mean Corp Hgb Conc 35.2 g/dL (32-36); Mean Corpuscular Hgb 33.2 pg (27.0-32.0); Mean Corpuscular Volume 94.2 fL (80-94); Mean Platelet Vol. 9.8 fl (6.2-12.0); Platelet Count 278 K/mm3 (150-450); RBC Distribution Width CV 11.9 % (11.6-14.6); RBC Distribution Width SD 41.4 fl (35.1-43.9); Red Blood Count 5.54 M/mm3 (4.6-6.2)
[2023-10-21 15:44] LABS: AST(SGOT) 26 U/L (15-37); Alanine Aminotransfer ALT/SGPT 33 U/L (16-61); Albumin, Serum 3.7 g/dL (3.2-5.0); Alkaline Phosphatase 78 U/L (45-117); Anion Gap 8 (5-15); BUN 6 mg/dL (7-18); BUN/Creat Ratio 10.3 RATIO (10-20); Calcium,Total 8.9 mg/dL (8.5-10.1); Chloride 98 mmol/L (98-107); Cholesterol 147 mg/dL (200); Creatinine, Serum 0.58 mg/dL (0.70-1.30); EST Glomerular Filtration Rate 155 mL/min (>60); Est Glom Filt Rate - Afr Amer 187 mL/min (>60); Ferritin 57 ng/mL (26-388); Globulin 3.8 g/dL (2.2-4.2); Glucose 100 mg/dL (74-106); High Density Lipoprotein 77 mg/dL; PSA,Total - Annual Screen 0.72 ng/mL (0.00-4.00); Potassium 3.9 mmol/L (3.5-5.1); Protein, Total 7.5 g/dL (6.4-8.2); Sodium Level 131 mmol/L (136-145); Triglycerides 37 mg/dL; Uric Acid 5.3 mg/dL (3.5-7.2); Very Low Density Lipoprotein 7 mg/dL (5-40)
[2023-10-21 15:49] LABS: Microalbumin,Random Urine 7.3 mg/L (NO RANGE EST.); Microalbumin:Creatinine Ratio 14.3 mg/g CRE (<30 mg/g CRE)
[2023-10-24 10:31] LABS: Pathologist Review Reviewed
== END | disposition home or self-care (01) ==
LOC: MTLAB 13:38
PROVIDERS: PCP Nurse Practitioner Family; Referring Provider Nurse Practitioner Family; Visit Provider Nurse Practitioner Family
DX: Z12.5 Encounter for screening for malignant neoplasm of prostate (principal); I10 Essential (primary) hypertension; E78.5 Hyperlipidemia, unspecified; D75.1 Secondary polycythemia; R73.01 Impaired fasting glucose; M10.9 Gout, unspecified
CPT/HCPCS: 36415; 80053; 80061; 82043; 82570; 82728; 84153; 84550; 85027; G0103

== ENCOUNTER → 2023-11-18 | Outpatient (CLI) | payer MEDICARE, SELFPAY ==
--- NOTE | 2023-11-18 14:19 | CT_ITS ---
EXAM: CT CHEST, LUNG CANCER SCREENING WITHOUT INTRAVENOUS CONTRAST CLINICAL INDICATION: Nicotine dependence, cigarettes, uncomplicated TECHNIQUE: Helically acquired images were obtained of the chest without intravenous contrast using low dose (LDCT) lung cancer screening protocol. This CT exam was performed using one or more of the following dose reduction techniques: automated exposure control, adjustment of the mA and/or kV according to patient size, and/or use of iterative reconstruction technique. COMPARISON: 08/17/2016 FINDINGS: LUNGS AND PLEURAL SPACES: There is mild scarring in the right middle lobe. There is minimal scarring in the lung bases. There is no focal consolidation. No mass. No pleural effusion or thickening. No pneumothorax. HEART: There are [id number] coronary artery calcifications. Heart size is normal. No pericardial effusion. MEDIASTINUM: Unremarkable. No mediastinal or hilar adenopathy. Esophagus is unremarkable. No hiatal hernia. THYROID: Unremarkable. No thyroid lesions. BONES/JOINTS: Unremarkable. No suspicious lytic or blastic abnormality. VASCULATURE: See above. LYMPH NODES: Unremarkable. No enlarged lymph nodes. CT/Low Dose CT Lung Screening IMPRESSION: No acute pulmonary abnormality. There is minimal scarring in the right middle lobe and lung bases. Lung-RADS score: 1 - Recommend continued annual screening with a low-dose CT (LDCT) in 12 months. Electronically Signed: Alexander Ordonez MD at 21:29 EDT ,
== END | disposition home or self-care (01) ==
PROVIDERS: PCP Nurse Practitioner Family; Referring Provider Nurse Practitioner Family; Visit Provider Nurse Practitioner Family
DX: Z12.2 Encounter for screening for malignant neoplasm of respiratory organs (principal); F17.210 Nicotine dependence, cigarettes, uncomplicated
CPT/HCPCS: 71271

== ENCOUNTER → 2024-02-07 | Outpatient (CLI) | payer MEDICARE, SELFPAY ==
--- NOTE | 2024-02-07 08:55 | ART_ITS ---
Reason For Study: ATHEROSCLEROSIS OF RLE Procedure A bilateral lower extremity continuous wave Doppler with analog waveform analysis and ankle brachial indexes. Left Segmental Pressures Left brachial= 153mmHg. Left posterior tibial artery = 183mmHg. Left dorsalis pedis artery = 166mmHg. Left digit = 117 mmHg. The left posterior tibial artery waveforms are triphasic. The left dorsalis pedis waveforms are triphasic. Right Segmental Pressures Right brachial= 155mmHg. Right posterior tibial artery = 107mmHg. Right dorsalis pedis artery = 90mmHg. Right digit = 89 mmHg. The right posterior tibial artery waveforms are biphasic. The right dorsalis pedis waveforms are monophasic. Indices The right resting ankle brachial index is 0.69. The right ankle brachial index by the posterior tibial artery is 0.69. The right ankle brachial index by the dorsalis pedis is 0.58. The right digital-brachial index is 0.57. The left resting ankle brachial index is 1.18. The left ankle brachial index by the posterior tibial artery is 1.18. The left ankle brachial index by the dorsalis pedis is 1.07. The left digital-brachial index is 0.75. VL/Ankle Brachial Index Interpretation Summary The right resting ankle-brachial index appears moderately abnormal. The left re sting ankle-brachial index appears normal. Ordering Physician: Socrates Reyes Referring Physician: Diomedes Corona Performed By: Jazzy Finney RVT, RDCS
--- NOTE | 2024-02-07 08:55 | CDU_ITS ---
Reason For Study: CAROTID STENOSIS Rt. Velocities/BP Lt. Velocities/BP Prox CCA 91.9/18.2 cm/sec. Prox CCA 157.2/29.9 cm/sec. Mid CCA 88.6/16.0 cm/sec. Mid CCA 130.8/26.7 cm/sec. Dist CCA 69.9/14.9 cm/sec. Dist CCA 81.8/19.2 cm/sec. Prox ICA 149.6/16.3 cm/sec. Prox ICA 90.7/28.1 cm/sec. Mid ICA 140.5/23.6 cm/sec. Mid ICA 114.9/32.7 cm/sec. Dist ICA 116.7/38.2 cm/sec. Dist ICA 136.8/38.2 cm/sec. Prox ECA 150.9/17.5 cm/sec. Prox ECA 138.6/14.4 cm/sec. Rt. Vert. 85.7/14.4 cm/sec. Lt. Vert. 73.5/13.1 cm/sec. Right Extracranial There is intimal thickening but no significant atherosclerotic plaque noted in the right common carotid artery. There is heterogeneous, smooth atherosclerotic plaque noted in the right internal carotid artery. There is intimal thickening but no significant atherosclerotic plaque noted in the right external carotid artery. Antegrade flow is noted in the right vertebral artery. Left Extracranial There is intimal thickening but no significant atherosclerotic plaque noted in the left common carotid artery. There is heterogeneous, irregular atherosclerotic plaque noted in the left internal carotid artery. There is homogeneous, irregular atherosclerotic plaque noted in the left external carotid artery. Antegrade flow is noted in the left vertebral artery. Procedure Carotid Duplex 39445. This is a Carotid Duplex examination using B-mode, color flow and specral Doppler. Exam performed in department. VL/Carotid Duplex Ultrasound Interpretation Summary Moderate (50-69%) stenosis right extracranial internal carotid. Moderate (50-69 %) stenosis left extracranial internal carotid. Patent and antegrade vertebrals bilaterally. Ordering Physician: Socrates Reyes Referring Physician: Diomedes Corona Performed By: Jazzy Finney, DANIEL, RVT
== END | disposition home or self-care (01) ==
PROVIDERS: PCP Nurse Practitioner Family; Referring Provider Surgery Vascular Surgery; Visit Provider Surgery Vascular Surgery
DX: I65.23 Occlusion and stenosis of bilateral carotid arteries (principal); I70.211 Atherosclerosis of native arteries of extremities with intermittent claudication, right leg; F17.200 Nicotine dependence, unspecified, uncomplicated
CPT/HCPCS: 93880; 93922

== ENCOUNTER → 2024-04-18 | Outpatient (CLI) | payer MEDICARE, SELFPAY ==
[2024-04-18 18:00] LABS: Hematocrit 39.2 % (40-54); Hemoglobin 13.3 g/dL (13.0-16.5); Mean Corp Hgb Conc 33.9 g/dL (32-36); Mean Corpuscular Hgb 32.3 pg (27.0-32.0); Mean Corpuscular Volume 95.1 fL (80-94); Mean Platelet Vol. 9.1 fl (6.2-12.0); Platelet Count 455 K/mm3 (150-450); RBC Distribution Width CV 11.3 % (11.6-14.6); RBC Distribution Width SD 39.1 fl (35.1-43.9); Red Blood Count 4.12 M/mm3 (4.6-6.2); White Blood Count 7.2 K/mm3 (4.4-11.0)
[2024-04-18 18:15] LABS: Microalbumin,Random Urine 15.1 mg/L (NO RANGE EST.); Microalbumin:Creatinine Ratio 107.1 mg/g CRE (<30 mg/g CRE)
[2024-04-18 18:30] LABS: ALB/GLOB Ratio 0.9 RATIO (0.9-2.4); AST(SGOT) 23 U/L (15-37); Alanine Aminotransfer ALT/SGPT 39 U/L (16-61); Albumin, Serum 3.8 g/dL (3.2-5.0); Alkaline Phosphatase 71 U/L (45-117); Anion Gap 11 (5-15); BUN 10 mg/dL (7-18); BUN/Creat Ratio 12.6 RATIO (10-20); Calcium,Total 9.2 mg/dL (8.5-10.1); Chloride 98 mmol/L (98-107); Cholesterol 174 mg/dL (200); EST Glomerular Filtration Rate 107 mL/min (>60); Est Glom Filt Rate - Afr Amer 130 mL/min (>60); Ferritin 404 ng/mL (26-388); Globulin 4.2 g/dL (2.2-4.2); Glucose 90 mg/dL (74-106); High Density Lipoprotein 81 mg/dL; Iron 145 ug/dL (65-175); Iron Binding Capacity,Total 376 ug/dL (250-450); Potassium 4.2 mmol/L (3.5-5.1); Sodium Level 132 mmol/L (136-145); Triglycerides 93 mg/dL; Very Low Density Lipoprotein 19 mg/dL (5-40)
== END | disposition home or self-care (01) ==
LOC: MTLAB 13:26
PROVIDERS: PCP Nurse Practitioner Family; Referring Provider Nurse Practitioner Family; Visit Provider Nurse Practitioner Family
DX: I10 Essential (primary) hypertension (principal); E78.5 Hyperlipidemia, unspecified; R73.01 Impaired fasting glucose; D75.1 Secondary polycythemia; M10.9 Gout, unspecified
CPT/HCPCS: 36415; 80053; 80061; 82043; 82570; 82728; 83540; 83550; 84550; 85027

== ENCOUNTER → 2024-10-23 | Outpatient (CLI) | payer MEDICARE, SELFPAY ==
[2024-10-23 15:32] LABS: Hematocrit 39.6 % (40-54); Hemoglobin 13.9 g/dL (13.0-16.5); Mean Corp Hgb Conc 35.1 g/dL (32-36); Mean Corpuscular Volume 91.7 fL (80-94); Mean Platelet Vol. 9.4 fl (6.2-12.0); Platelet Count 330 K/mm3 (150-450); RBC Distribution Width CV 11.4 % (11.6-14.6); RBC Distribution Width SD 38.5 fl (35.1-43.9); Red Blood Count 4.32 M/mm3 (4.6-6.2); White Blood Count 8.1 K/mm3 (4.4-11.0)
[2024-10-23 15:43] LABS: AST(SGOT) 32 U/L (<=37); Alanine Aminotransfer ALT/SGPT 28 U/L (<=46); Albumin, Serum 4.4 g/dL (3.5-5.0); Alkaline Phosphatase 76 U/L (40-129); Anion Gap 15 (5-15); BUN 9 mg/dL (4-19); BUN/Creat Ratio 12.9 RATIO (10-20); Calcium,Total 9.3 mg/dL (7.6-11.0); Carbon Dioxide 22.4 mmol/L (21.0-32.0); Chloride 95 mmol/L (98-108); Cholesterol 187 mg/dL (<=200); Globulin 3.1 g/dL (2.2-4.2); Glucose 110 mg/dL (70-99); Low Density Lipoprotein Calc. 68 mg/dL; PSA,Total - Annual Screen 0.57 ng/mL (0.02-4.00); Potassium 4.3 mmol/L (3.3-5.1); Triglycerides 62 mg/dL; Uric Acid 6.2 mg/dL (3.5-7.2); Very Low Density Lipoprotein 12 mg/dL (5-40); cholesterol:hdl ratio screen 1.75
[2024-10-23 17:47] LABS: Creatinine, Urine (random) 56.80 mg/dL (39.00-259.00); Microalbumin,Random Urine 25.9 mg/L (<20 mg/L)
--- OUTSIDE RECORDS SUMMARY | 2024-10-23 21:33 | XMS RPT_ITS | CCD ---
Author Organization [facility] Care Team Providers Care School Bus Monitor Name Role Phone Chloe WEB ANALYST, WEB ANALYST-C Diomedes Miller Primary Care Pr ovider Chloe WEB ANALYST, WEB ANALYST-C Diomedes Miller Referring Provi gabriel Gomez WEB ANALYST, WEB ANALYST-C Tiffanie Naik Attending Provider Friend, Dr. Silveira Attending Provider Friend, Dr. Silveira Other Provider Diomedes Corona CNP Primary Care Provider [phone] DIOMEDES CORONA Primary Care Unavailable ROBERTO, LAW A Referring Unavailable DIOMEDES CORONA Primary Care Unavailable ROBERTO, LAW A Referring Unavailable ROBERTO LAW A Attending Unavailable DIOMEDES CORONA Referring Unavailable DIOMEDES CORONA Primary Care Unavailable Eric, Socrates A Referring Unavailable Socrates Reyes Attending Unavailable Diomedes Corona Primary Care Unavail able Diomedes Corona Referring Unavail able [place]Diomedes riley Attending Unavail able [place]omedes riley Primary Care Unavail able ChloeDiomedes riley Referring Unavail able [place]omedes riley Attending Unavail able ChloeDiomedes riley Primary Care Unavail able [place]omedes riley Referring Unavail able [place]omingoDiomedes riley Attending Unavail able ChloeDiomedes riley Primary Care Unavail able Medications Current Medications Medication Drug Class(es) Dates Sig (Normalized) Sig (Original) acetaminophen 325 mg / HYDROcodone bitartrate 5 mg oral tablet (9 sources) Opioid Agonist Start: 08-25-2017 take 1 tablet by mouth every six hours as needed Hydrocodone-Aceta minophen Active 1 TABLET PO EVERY 6 HOURS NEEDED 10 August 25, 2017 12:00am Start: 08-17-2016 End: 08-02-2017 take 1 tablet by mouth every four hours as needed Hydrocodone-Acetaminophen Discontinued 1 - 2 TABLET PO EVERY 4 HOURS NEEDED August 16, 2016 11:00pm August 02, 2017 1:15pm colchicine 0.6 mg oral tablet (7 sources) Start: 08-02-2017 Colchicine Act yony 0.6 MG PO NEEDED August 01, 2017 11:00pm ibuprofen 200 mg oral capsule (2 sources) Nonsteroidal Anti-inflammatory Drug Start: 08-22-2017 Ibuprofen Active 200 MG PO NEEDED August 22, 2017 12:00am losartan potassium 50 mg oral tablet (8 sources) Angiotensin 2 Receptor Andrei Start: 12-09-2021 take 50 mg by mouth once daily Losartan Active 50 MG PO DAILY December 08, 2021 11:00pm Start: 12-26-2017 take 1 tablet by laure th once daily losartan (COZAAR) 25 mg tablet Take 25 mg by mouth once daily. 2 12/26/2017 Active Comment on above: Take 25 mg by mouth once daily. Multivitamin preparation (7 sources) Start: 08-22-2017 Multivitamin Active 1 EACH PO DAILY August 21, 2017 11:00pm Start: 08-22-2017 Multivitamin A ctive 1 EACH PO DAILY August 22, 2017 12:00am pantoprazole 40 mg delayed release oral tablet (8 sources) Proton Pump Inhibitor Start: 12-09-2021 take 40 mg by mouth once daily Pantoprazole Active 40 MG PO DAILY December 08, 2021 11:00pm Comment on above: Take 40 mg by mouth once daily. raNITIdine 150 mg oral tablet (2 sources) Histamine-2 Receptor Antagonist Start: 08-22-2017 Ranitidine Hcl Active 150 MG PO NEEDED August 22, 2017 12:00am rivaroxaban 15 mg oral tablet (15 sources) Factor Xa Inhibitor Start: 04-08-2022 take 1 tablet by mouth once daily Rivaroxaban (Xarelto) 15 mg tablet Active 15 MG PO DAILY April 08, 2022 12:00am Start: 12-25-2017 XARELTO 20 mg tablet Take 15 mg by mouth once daily. 5 12/25/2017 Active Start: 08-17-2016 End: 08-02-2017 take 15 mg by mouth twice daily Rivaroxaban Discontinued 15 MG PO TWICE A DAY 42 August 16, 2016 11:00pm August 02, 2017 1:15pm Comment on above: Take 15 mg by mouth once daily. simvastatin 20 mg oral tablet (10 sources) HMG-CoA Reductase Inhibitor Start: 8 take 20 mg by mouth once daily Simvastatin Active 20 MG PO DAILY August 01, 2017 11:00pm Comment on above: Take 20 mg by mouth once daily. valsartan 80 mg oral tablet (2 sources) Angiotensin 2 Receptor Andrei Start: 8 take 1 tablet by mouth once daily Valsartan (Diovan) 80 mg tablet Active 80 MG PO daily August 02, 2017 12:00am Completed/Discontinued Medications Medication Drug Class(es) Dates Sig (Normalized) Sig (Original) cilostazol 100 mg oral tablet (10 sources) Phosphodiesterase 3 Inhibitor Start: 12-25-2017 take 1 tablet by mouth once daily cilostazol (PLETAL) 100 mg tablet Take 100 mg by mouth once daily. 11 12/25/2017 Active Start: 08-02-2017 take 100 mg by mouth twice daily Cilostazol Active 100 MG PO TWICE A DAY August 01, 2017 11:00pm Comment on above: Take 100 mg by mouth once daily. levoFLOXacin 750 mg oral tablet (7 sources) Quinolone Antimicrobial Start: 08-18-19 17 End: 08-03-19 18 take 750 mg by mouth once daily Levofloxacin Discontinued 750 MG PO DAILY 7 August 16, 2016 11:00pm August 02, 2017 1:15pm multivitamin tablet (3 sources) take 1 tablet by mouth once daily multivitamin tablet Take 1 tablet by mouth once daily. 0 Active Comment on above: Take 1 tablet by laure th once daily. Problems Active Problems Problem Classification Problem Date Documented Da te Episodic/Chronic Abdominal hernia (7 sources) Right inguinal hernia ; Translations: [Unilateral inguinal hernia, without obstruction or gangrene, not specified as recurrent] 08-25-2017 Episodic Aortic and peripheral arterial embolism or thrombosis (7 sources) Embolism; Translations: [Embolism and thrombosis of unspecified artery] 09-01-2017 Chronic Disorders of lipid metabolism (7 sources) Hyperlipidemia; Translations: [Hyperlipidemia, unspecified] 09-01-2017 Chronic Esophageal disorders (10 sources) Gastroesophageal reflux disease; Translations: [Gastro-esophageal reflux disease without esophagitis] 02-11-2022 Chronic Essential hypertension (10 sources) Hypertensive disorder; Translations: [Essential (primary) hypertension] Onset: 3 04-08-2022 Chronic Occlusion or stenosis of precerebral arteries (1 source) Occlusion and stenosis of bilateral carotid arteries; Translations: [Occlusion and stenosis of bilateral carotid arteries] Onset: 5 Chronic Other and unspecified benign neoplasm (3 sources) Polyp of colon; Translations: [Polyp of colon] 05-05-2022 Episodic Other hematologic conditions (1 source) Secondary polycythemia; Translations: [Secondary polycythemia] Onset: 3 Episodic Other hematologic conditions (1 source) Secondary polycythemia; Translations: [Secondary polycythemia] 11-11-2022 Episodic Peripheral and visceral atherosclerosis (9 sources) Peripheral vascular disease, unspecified; Translations: [Peripheral arterial disease] Onset: 3 09-01-2017 Chronic Phlebitis; thrombophlebitis and thromboembolism (4 sources) 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; Translations: [Chronic embolism and thrombosis of right femoral vein] Onset: 8 01-04-2018 Chronic Pulmonary heart disease (7 sources) Pulmonary embolism; Translations: [Other pulmonary embolism without acute cor pulmonale] 09-01-2017 Episodic Substance-related disorders (5 sources) Smoker; Translations: [Nicotine dependence, unspecified, uncomplicated] Onset: 8 01-04-2018 Chronic Past or Other Problems Problem Classification Problem Date Documented Da te Episodic/Chronic Other screening for suspected conditions (not mental disorders or infectious disease) (2 sources) Encounter for screening for malignant neoplasm of respiratory organs; Translations: [Encounter for screening for malignant neoplasm of prostate] Onset: 11-09-2023 Episodic Unclassified (7 sources) s/p urethral meatotomy 09-24-2021 Unclassified (7 sources) Colonoscopy planned; Translations: [Colonoscopy planned] 02-11-2022 Results Test Name Value Interpretation Reference Range Facility CBC-Complete Blood Cnt No Di ffon 04-18-2024 Erythrocyte distribution width (RBC) [Ratio] 11.3 % Low 11.6-14.6 [facility] Comment on above: Performed By: #### L 501.1400, L502.0250, L501.9910, L500.4100, L503.6550, L500.4050, L100.0500 #### [facility] [address] [place], [address] Hematocrit (Bld) [Volume fraction] 39.2 % Low 40-54 [facility] Comment on above: Performed By: #### L 501.1400, L502.0250, L501.9910, L500.4100, L503.6550, L500.4050, L100.0500 #### [facility] [address] [place], [address] Hemoglobin (Bld) [Mass/Vol] 13.3 g/dL Normal 13.0-16.5 [facility] Comment on above: Performed By: #### L 501.1400, L502.0250, L501.9910, L500.4100, L503.6550, L500.4050, L100.0500 #### [facility] [address] [place], [address] MCH (RBC) [Entitic mass] 32.3 pg High 27.0-32.0 [facility] Comment on above: Performed By: #### L 501.1400, L502.0250, L501.9910, L500.4100, L503.6550, L500.4050, L100.0500 #### [facility] [address] [place], [address] MCHC (RBC) [Mass/Vol] 33.9 g/dL Normal 32-36 [facility] Comment on above: Performed By: #### L 501.1400, L502.0250, L501.9910, L500.4100, L503.6550, L500.4050, L100.0500 #### [facility] [address] [place], [address] MCV (RBC) [Entitic vol] 95.1 fL High 80-94 [facility] Comment on above: Performed By: #### L 501.1400, L502.0250, L501.9910, L500.4100, L503.6550, L500.4050, L100.0500 #### [facility] [address] [place], [address] Platelet mean volume (Bld) [Entitic vol] 9.1 fL Normal 6.2-12.0 [facility] Comment on above: Performed By: #### L 501.1400, L502.0250, L501.9910, L500.4100, L503.6550, L500.4050, L100.0500 #### [facility] [address] [place], [address] Platelets (Bld) [#/Vol] 455 10*3/uL High 150-450 [facility] Comment on above: Performed By: #### L 501.1400, L502.0250, L501.9910, L500.4100, L503.6550, L500.4050, L100.0500 #### [facility] [address] [place], [address] RBC (Bld) [#/Vol] 4.12 10*6/uL Low 4.6-6.[address] [facility] Comment on above: Performed By: #### L 501.1400, L502.0250, L501.9910, L500.4100, L503.6550, L500.4050, L100.0500 #### [facility] [address] [place], [address] RDW SD 39.1 fl Normal 35.1-43.9 [facility] Comment on above: Performed By: #### L 501.1400, L502.0250, L501.9910, L500.4100, L503.6550, L500.4050, L100.0500 #### [facility] [address] [place], [address] WBC (Bld) [#/Vol] 7.2 10*3/uL Normal 4.4-11.0 [facility] Comment on above: Performed By: #### L 501.1400, L502.0250, L501.9910, L500.4100, L503.6550, L500.4050, L100.0500 #### [facility] [address] [place], [address] Comprehensive Metabolic Prof ilon 04-18-2024 Albumin [Mass/Vol] 3.8 g/dL Normal 3.2-5.0 [facility] Comment on above: Performed By: #### L 501.1400, L502.0250, L501.9910, L500.4100, L503.6550, L500.4050, L100.0500 #### [facility] [address] [place], [address] Albumin/Globulin [Mass ratio] 0.9 {ratio} Normal 0.9-2.4 [facility] Comment on above: Performed By: #### L 501.1400, L502.0250, L501.9910, L500.4100, L503.6550, L500.4050, L100.0500 #### [facility] [address] [place], [address] ALK P 71 U/L Normal 45-117 [facility] Comment on above: Performed By: #### L 501.1400, L502.0250, L501.9910, L500.4100, L503.6550, L500.4050, L100.0500 #### [facility] [address] [place], [address] ALT [Catalytic activity/Vol] 39 U/L Normal 16-61 [facility] Comment on above: Performed By: #### L 501.1400, L502.0250, L501.9910, L500.4100, L503.6550, L500.4050, L100.0500 #### [facility] [address] [place], [address] AST [Catalytic activity/Vol] 23 U/L Normal 15-37 [facility] Comment on above: Performed By: #### L 501.1400, L502.0250, L501.9910, L500.4100, L503.6550, L500.4050, L100.0500 #### [facility] [address] [place], [address] Bilirubin [Mass/Vol] 0.40 mg/dL Normal 0.20-1.00 [facility] Comment on above: Result Comment: For patients on eltrombopag therapy, use of Dimension [place] TBIL is not recommended. Performed By: #### L 501.1400, L502.0250, L501.9910, L500.4100, L503.6550, L500.4050, L100.0500 #### [facility] [address] [place], [address] BUN/CRE 12.6 RATIO Normal 10-20 [facility] Comment on above: Performed By: #### L 501.1400, L502.0250, L501.9910, L500.4100, L503.6550, L500.4050, L100.0500 #### [facility] [address] [place], [address] CA,Total 9.2 mg/dL Normal 8.5-10.1 [facility] Comment on above: Performed By: #### L 501.1400, L502.0250, L501.9910, L500.4100, L503.6550, L500.4050, L100.0500 #### [facility] [address] [place], [address] Chloride [Moles/Vol] 98 mmol/L Normal 98-107 [facility] Comment on above: Performed By: #### L 501.1400, L502.0250, L501.9910, L500.4100, L503.6550, L500.4050, L100.0500 #### [facility] [address] [place], [address] CO2 [Moles/Vol] 24.0 mmol/L Normal 21.0-32.0 [facility] Comment on above: Performed By: #### L 501.1400, L502.0250, L501.9910, L500.4100, L503.6550, L500.4050, L100.0500 #### [facility] [address] [place], [address] Creatinine [Mass/Vol] 0.80 mg/dL Normal 0.70-1.30 [facility] Comment on above: Result Comment: The validity of the calculated GFR GFRAA in patients over 70 years has not been determined. Clinical correlation is essential. Performed By: #### L 501.1400, L502.0250, L501.9910, L500.4100, L503.6550, L500.4050, L100.0500 #### [facility] [address] [place], [address] EST GFR - AA 130 mL/min Normal >60 [facility] Comment on above: Result Comment: Afri can Turkish GFR Calc Performed By: #### L 501.1400, L502.0250, L501.9910, L500.4100, L503.6550, L500.4050, L100.0500 #### [facility] [address] [place], [address] GAP 11 Normal 5-15 [facility] Comment on above: Performed By: #### L 501.1400, L502.0250, L501.9910, L500.4100, L503.6550, L500.4050, L100.0500 #### [facility] [address] [place], [address] GFR/1.73 sq M.predicted among non-blacks MDRD (S/P/Bld) [Vol rate/Area] 107 mL/min/{1.73_m2} Normal >60 [facility] Comment on above: Result Comment: Non- GFR Calc Performed By: #### L 501.1400, L502.0250, L501.9910, L500.4100, L503.6550, L500.4050, L100.0500 #### [facility] [address] [place], [address] Globulin (S) [Mass/Vol] 4.2 g/dL Normal 2.2-4.2 [facility] Comment on above: Performed By: #### L 501.1400, L502.0250, L501.9910, L500.4100, L503.6550, L500.4050, L100.0500 #### [facility] [address] [place], [address] Glucose [Mass/Vol] 90 mg/dL Normal 74-106 [facility] Comment on above: Performed By: #### L 501.1400, L502.0250, L501.9910, L500.4100, L503.6550, L500.4050, L100.0500 #### [facility] [address] [place], [address] Potassium [Moles/Vol] 4.2 mmol/L Normal 3.5-5.1 [facility] Comment on above: Performed By: #### L 501.1400, L502.0250, L501.9910, L500.4100, L503.6550, L500.4050, L100.0500 #### [facility] [address] [place], [address] Sodium [Moles/Vol] 132 mmol/L Low 136-145 [facility] Comment on above: Performed By: #### L 501.1400, L502.0250, L501.9910, L500.4100, L503.6550, L500.4050, L100.0500 #### [facility] [address] [place], [address] T PROT 8.0 g/dL Normal 6.4-8.2 [facility] Comment on above: Performed By: #### L 501.1400, L502.0250, L501.9910, L500.4100, L503.6550, L500.4050, L100.0500 #### [facility] [address] [place], [address] Urea nitrogen [Mass/Vol] 10 mg/dL Normal 7-18 [facility] Comment on above: Performed By: #### L 501.1400, L502.0250, L501.9910, L500.4100, L503.6550, L500.4050, L100.0500 #### [facility] [address] [place], [address] Ferritinon 04-18-2024 Ferritin [Mass/Vol] 404 ng/mL High 26-[address] [facility] Comment on above: Performed By: #### L 501.1400, L502.0250, L501.9910, L500.4100, L503.6550, L500.4050, L100.0500 #### [facility] [address] [place], [address] Ironon 04-18-2024 Iron [Mass/Vol] 145 ug/dL Normal 65-175 [facility] Comment on above: Performed By: #### L 501.1400, L502.0250, L501.9910, L500.4100, L503.6550, L500.4050, L100.0500 #### [facility] [address] [place], [address] Iron Binding Capacity,Totalo n 02-12-2025 TIBC 376 ug/dL Normal 250-450 [facility] Comment on above: Performed By: #### L 501.1400, L502.0250, L501.9910, L500.4100, L503.6550, L500.4050, L100.0500 #### [facility] [address] [place], [address] Lipid Profileon 04-18-2024 Cholesterol [Mass/Vol] 174 mg/dL Normal 200 [facility] Comment on above: Result Comment: <200 mg/dL Desirable 200-240 mg/dL Borderline >240 mg/dL High Risk Performed By: #### L 501.1400, L502.0250, L501.9910, L500.4100, L503.6550, L500.4050, L100.0500 #### [facility] [address] [place], [address] Cholesterol in HDL [Mass/Vol] 81 mg/dL Normal [facility] Comment on above: Result Comment: The drugs N-Acetylcysteine and Metamizole may falsely depress this assay. Reference Range HDL <40 mg/dL Low HDL Cholesterol HDL >or= 60 mg/dL High HDL Cholesterol Performed By: #### L 501.1400, L502.0250, L501.9910, L500.4100, L503.6550, L500.4050, L100.0500 #### [facility] [address] [place], [address] Cholesterol in LDL [Mass/Vol] 74 mg/dL Normal 0-130 [facility] Comment on above: Performed By: #### L 501.1400, L502.0250, L501.9910, L500.4100, L503.6550, L500.4050, L100.0500 #### [facility] [address] [place], [address] Cholesterol in VLDL [Mass/Vol] 19 mg/dL Normal 5-40 [facility] Comment on above: Performed By: #### L 501.1400, L502.0250, L501.9910, L500.4100, L503.6550, L500.4050, L100.0500 #### [facility] [address] [place], [place], [id number] ([phone]) Triglyceride [Mass/Vol] 93 mg/dL Normal [facility] Comment on above: Result Comment: The drugs N-Acetylcysteine and Metamizole may falsely depress this assay. Serum Triglycerides Reference Interval Normal <150 mg/dL Borderline high 150 - 199 mg/dL High 200 - 499 mg/dL Very High > or = 500 mg/dL Performed By: #### L 501.1400, L502.0250, L501.9910, L500.4100, L503.6550, L500.4050, L100.0500 #### [facility] [address] [place], [address] Microalb:Creat Ratio,Random URon 04-18-2024 Creatinine [Mass/Vol] 14.10 mg/dL Normal NO RAN GE EST. [facility] Comment on above: Performed By: #### L 501.1400, L502.0250, L501.9910, L500.4100, L503.6550, L500.4050, L100.0500 #### [facility] [address] [place], [address] MALB:CRE 107.1 mg/g CRE High <30 mg/g CRE [facility] Comment on above: Performed By: #### L 501.1400, L502.0250, L501.9910, L500.4100, L503.6550, L500.4050, L100.0500 #### [facility] [address] [place], [place], [id number] ([phone]) MICROALBUMIN,UR 15.1 mg/L Normal NO RANGE EST. [facility] Comment on above: Performed By: #### L 501.1400, L502.0250, L501.9910, L500.4100, L503.6550, L500.4050, L100.0500 #### [facility] [address] [place], [place], [address] Uric Acidon 04-18-2024 URIC 6.0 mg/dL Normal 3.5-7.2 [facility] Comment on above: Result Comment: The drugs N-Acetylcysteine and Metamizole may falsely depress this assay. Performed By: #### L 501.1400, L502.0250, L501.9910, L500.4100, L503.6550, L500.4050, L100.0500 #### [facility] [address] [place], [address] Ankle Brachial Indexon 02-06 Ankle Brachial Index [facility] [address] [place] [address] Ankle Brachial Index 02/07/24 0900 MR#: [id number] Acct: [id number] Name: YUVAL WATT Rep #: [id number] : 1970 53 From: Socrates Reyes MD Attending Dr: Dr. Socrates Reyes MD Status: DE P CLI Ordering Dr: Socrates Reyes MD Date: 02/07/24 Location: [facility] Sex: M C Admitted: Reason For Study: ATHEROSCLEROSIS OF RLE Procedure A bilateral lower extremity continuous wave Doppler with analog waveform analysis and ankle brachial indexes. Left Segmental Pressures Left brachial= 153mmHg. Left posterior tibial artery = 183mmHg. Left dorsalis pedis artery = 166mmHg. Left digit = 117 mmHg. The left posterior tibial artery waveforms are triphasic. The left dorsalis pedis waveforms are triphasic. Right Segmental Pressures Right brachial= 155mmHg. Right posterior tibial artery = 107mmHg. Right dorsalis pedis artery = 90mmHg. Right digit = 89 mmHg. The right posterior tibial artery waveforms are biphasic. The right dorsalis pedis waveforms are monophasic. Indices The right resting ankle brachial index is 0.69. The right ankle brachial index by the posterior tibial artery is 0.69. The right ankle brachial index by the dorsalis pedis is 0.58. The right digital-brachial index is 0.57. The left resting ankle brachial index is 1.18. The left ankle brachial index by the posterior tibial artery is 1.18. The left ankle brachial index by the dorsalis pedis is 1.07. The left digital-brachial index is 0.75. VL/Ankle Brachial Index Interpretation Summary The right resting ankle-brachial index appears moderately abnormal. The left resting ankle-brachial index appears normal. Ordering Physician: Socrates Reyes Referring Physician: Diomedes Corona Performed By: Jazzy Finney RVT, [facility] 03/13/24 1800 Date Socrates Reyes MD CC: WEB ANALYST-C Diomedes Corona; Dr. Socrates Reyes MD Date Dictated: 02/07/24 0900 Date Transcribed: 03/13/24 1800 Tip Finisher: Signed Normal [facility] Carotid Duplex Ultrasoundon 02-07-2024 Carotid Duplex Ultrasound [facility] [address] [place] [address] Carotid Duplex Ultrasound 02/07/24914 MR#: [id number] Acct: [id number] Name: YUVAL WATT Rep #: [id number] : 1970 53 From: Socrates Reyes MD Attending Dr: Dr. Socrates Reyes MD Status: DE P CLI Ordering Dr: Socrates Reyes MD Date: 02/07/24 Location: [facility] Sex: M C Admitted: Reason For Study: CAROTID STENOSIS Rt. Velocities/BP Lt. Velocities/BP Prox CCA 91.9/18.2 cm/sec. Prox CCA 157.2/29.9 cm/sec. Mid CCA 88.6/16.0 cm/sec. Mid CCA 130.8/26.7 cm/sec. Dist CCA 69.9/14.9 cm/sec. Dist CCA 81.8/19.2 cm/sec. Prox ICA 149.6/16.3 cm/sec. Prox ICA 90.7/28.1 cm/sec. Mid ICA 140.5/23.6 cm/sec. Mid ICA 114.9/32.7 cm/sec. Dist ICA 116.7/38.2 cm/sec. Dist ICA 136.8/38.2 cm/sec. Prox ECA 150.9/17.5 cm/sec. Prox ECA 138.6/14.4 cm/sec. Rt. Vert. 85.7/14.4 cm/sec. Lt. Vert. 73.5/13.1 cm/sec. Right Extracranial There is intimal thickening but no significant atherosclerotic plaque noted in the right common carotid artery. There is heterogeneous, smooth atherosclerotic plaque noted in the right internal carotid artery. There is intimal thickening but no significant atherosclerotic plaque noted in the right external carotid artery. Antegrade flow is noted in the right vertebral artery. Left Extracranial There is intimal thickening but no significant atherosclerotic plaque noted in the left common carotid artery. There is heterogeneous, irregular atherosclerotic plaque noted in the left internal carotid artery. There is homogeneous, irregular atherosclerotic plaque noted in the left external carotid artery. Antegrade flow is noted in the left vertebral artery. Procedure Carotid Duplex 04169. This is a Carotid Duplex examination using B-mode, color flow and specral Doppler. Exam performed in department. VL/Carotid Duplex Ultrasound Interpretation Summary Moderate (50-69%) stenosis right extracranial internal carotid. Moderate (50-69%) stenosis left extracranial internal carotid. Patent and antegrade vertebrals bilaterally. Ordering Physician: Socrates Reyes Referring Physician: Diomedes Corona Performed By: Jazzy Finney, DANIEL, RVT 03/13/241758 Date Socrates Reyes MD CC: WEB ANALYST-C Diomedes Corona; Dr. Socrates Reyes MD Date Dictated: 02/07/24914 Date Transcribed: 03/13/241758 Tip Finisher: Signed Normal [facility] Low Dose CT Lung Screeningon 11-18-[address] Lung Screening [facility] Services [address] [place], [place] [id number] Low Dose CT Lung Screening MR#: [id number] Acct: [id number] Name: YUVAL WATT Rep #: [id number] : 1970 M 53 From: Alexander Ordonez MD PCP: ARTHUR Woodward Status: REG CLI Study: Low Dose CT Lung Screening Date of Exam: 11/17 Exam# [id number] Ordering Dr: Diomedes Corona NP, NP-Randall [id number] EXAM: CT CHEST, LUNG CANCER SCREENING WITHOUT INTRAVENOUS CONTRAST CLINICAL INDICATION: Nicotine dependence, cigarettes, uncomplicated TECHNIQUE: Helically acquired images were obtained of the chest without intravenous contrast using low dose (LDCT) lung cancer screening protocol. This CT exam was performed using one or more of the following dose reduction techniques: automated exposure control, adjustment of the mA and/or kV according to patient size, and/or use of iterative reconstruction technique. COMPARISON: 08/17/2016 FINDINGS: LUNGS AND PLEURAL SPACES: There is mild scarring in the right middle lobe. There is minimal scarring in the lung bases. There is no focal consolidation. No mass. No pleural effusion or thickening. No pneumothorax. HEART: There are oxlb-ar-mdgexgyo coronary artery calcifications. Heart size is normal. No pericardial effusion. MEDIASTINUM: Unremarkable. No mediastinal or hilar adenopathy. Esophagus is unremarkable. No hiatal hernia. THYROID: Unremarkable. No thyroid lesions. BONES/JOINTS: Unremarkable. No suspicious lytic or blastic abnormality. VASCULATURE: See above. LYMPH NODES: Unremarkable. No enlarged lymph nodes. CT/Low Dose CT Lung Screening IMPRESSION: No acute pulmonary abnormality. There is minimal scarring in the right middle lobe and lung bases. Lung-RADS score: 1 - Recommend continued annual screening with a low-dose CT (LDCT) in 12 months. Electronically Signed: Alexander Ordonez MD at 21:29 EDT , CC: ARTHUR Corona Tip Finisher: Signed Normal [facility] CBC-Complete Blood Cnt No Di ffon 10-24-2023 PATH REV Reviewed Normal [facility] Comment on above: Order Comment: CRITI PAUL VALUE VERIFIED. CALLED TO FIONA PENDLETON 10/21/23 Vamshi Gonzales. RESULTS READ BACK BY SAME . Result Comment: Poly cythemia Clinical correlation necessary. Lincoln Quick M.D. 10/24/23 AMENDED REPORT 10/24/23 1031 PATH REV previously reported as: July Performed By: #### L 501.1400, L502.0250, L501.9910, L500.4100, L503.6550, L500.4050, L100.0500 #### [facility] [address] [place], [place], [id number] Comprehensive Metabolic Prof ilon 10-21-2023 Albumin [Mass/Vol] 3.7 g/dL Normal 3.2-5.0 [facility] Comment on above: Performed By: #### L 501.1400, L502.0250, L501.9910, L500.4100, L503.6550, L500.4050, L100.0500 #### [facility] [address] [place], [address] Albumin/Globulin [Mass ratio] 1.0 {ratio} Normal 0.9-2.4 [facility] Comment on above: Performed By: #### L 501.1400, L502.0250, L501.9910, L500.4100, L503.6550, L500.4050, L100.0500 #### [facility] [address] [place], [address] ALK P 78 U/L Normal 45-117 [facility] Comment on above: Performed By: #### L 501.1400, L502.0250, L501.9910, L500.4100, L503.6550, L500.4050, L100.0500 #### [facility] [address] [place], [address] ALT [Catalytic activity/Vol] 33 U/L Normal 16-61 [facility] Comment on above: Performed By: #### L 501.1400, L502.0250, L501.9910, L500.4100, L503.6550, L500.4050, L100.0500 #### [facility] [address] [place], [address] AST [Catalytic activity/Vol] 26 U/L Normal 15-37 [facility] Comment on above: Performed By: #### L 501.1400, L502.0250, L501.9910, L500.4100, L503.6550, L500.4050, L100.0500 #### [facility] [address] [place], [address] Bilirubin [Mass/Vol] 0.70 mg/dL Normal 0.20-1.00 [facility] Comment on above: Result Comment: For patients on eltrombopag therapy, use of Dimension [place] TBIL is not recommended. Performed By: #### L 501.1400, L502.0250, L501.9910, L500.4100, L503.6550, L500.4050, L100.0500 #### [facility] [address] [place], [address] BUN/CRE 10.3 RATIO Normal 10-20 [facility] Comment on above: Performed By: #### L 501.1400, L502.0250, L501.9910, L500.4100, L503.6550, L500.4050, L100.0500 #### [facility] [address] [place], [address] CA,Total 8.9 mg/dL Normal 8.5-10.1 [facility] Comment on above: Performed By: #### L 501.1400, L502.0250, L501.9910, L500.4100, L503.6550, L500.4050, L100.0500 #### [facility] [address] [place], [address] Chloride [Moles/Vol] 98 mmol/L Normal 98-107 [facility] Comment on above: Performed By: #### L 501.1400, L502.0250, L501.9910, L500.4100, L503.6550, L500.4050, L100.0500 #### [facility] [address] [place], [address] CO2 [Moles/Vol] 25.0 mmol/L Normal 21.0-32.0 [facility] Comment on above: Performed By: #### L 501.1400, L502.0250, L501.9910, L500.4100, L503.6550, L500.4050, L100.0500 #### [facility] [address] [place], [address] Creatinine [Mass/Vol] 0.58 mg/dL Low 0.70-1.30 [facility] Comment on above: Result Comment: The validity of the calculated GFR GFRAA in patients over 70 years has not been determined. Clinical correlation is essential. Performed By: #### L 501.1400, L502.0250, L501.9910, L500.4100, L503.6550, L500.4050, L100.0500 #### [facility] [address] [place], [address] EST GFR - AA 187 mL/min Normal >60 [facility] Comment on above: Result Comment: Afri can Turkish GFR Calc Performed By: #### L 501.1400, L502.0250, L501.9910, L500.4100, L503.6550, L500.4050, L100.0500 #### [facility] [address] [place], [address] GAP 8 Normal 5-15 [facility] Comment on above: Performed By: #### L 501.1400, L502.0250, L501.9910, L500.4100, L503.6550, L500.4050, L100.0500 #### [facility] [address] [place], [address] GFR/1.73 sq M.predicted among non-blacks MDRD (S/P/Bld) [Vol rate/Area] 155 mL/min/{1.73_m2} Normal >60 [facility] Comment on above: Result Comment: Non- GFR Calc Performed By: #### L 501.1400, L502.0250, L501.9910, L500.4100, L503.6550, L500.4050, L100.0500 #### [facility] [address] [place], [address] Globulin (S) [Mass/Vol] 3.8 g/dL Normal 2.2-4.2 [facility] Comment on above: Performed By: #### L 501.1400, L502.0250, L501.9910, L500.4100, L503.6550, L500.4050, L100.0500 #### [facility] [address] [place], [address] Glucose [Mass/Vol] 100 mg/dL Normal 74-106 [facility] Comment on above: Result Comment: Fast ing Glucose result from 100 to 125 mg/dL suggests IMPAIRED HOMEOSTASIS per A.D.A. criteria. Performed By: #### L 501.1400, L502.0250, L501.9910, L500.4100, L503.6550, L500.4050, L100.0500 #### [facility] [address] [place], [address] Potassium [Moles/Vol] 3.9 mmol/L Normal 3.5-5.1 [facility] Comment on above: Performed By: #### L 501.1400, L502.0250, L501.9910, L500.4100, L503.6550, L500.4050, L100.0500 #### [facility] [address] [place], [address] Sodium [Moles/Vol] 131 mmol/L Low 136-145 [facility] Comment on above: Performed By: #### L 501.1400, L502.0250, L501.9910, L500.4100, L503.6550, L500.4050, L100.0500 #### [facility] [address] [place], [address] T PROT 7.5 g/dL Normal 6.4-8.2 [facility] Comment on above: Performed By: #### L 501.1400, L502.0250, L501.9910, L500.4100, L503.6550, L500.4050, L100.0500 #### [facility] [address] [place], [address] Urea nitrogen [Mass/Vol] 6 mg/dL Low 7-18 [facility] Comment on above: Performed By: #### L 501.1400, L502.0250, L501.9910, L500.4100, L503.6550, L500.4050, L100.0500 #### [facility] [address] [place], [address] Ferritinon 10-21-2023 Ferritin [Mass/Vol] 57 ng/mL Normal 26-[address] [facility] Comment on above: Performed By: #### L 501.1400, L502.0250, L501.9910, L500.4100, L503.6550, L500.4050, L100.0500 #### [facility] [address] [place], [address] Lipid Profileon 10-21-2023 Cholesterol [Mass/Vol] 147 mg/dL Normal 200 [facility] Comment on above: Result Comment: <200 mg/dL Desirable 200-240 mg/dL Borderline >240 mg/dL High Risk Performed By: #### L 501.1400, L502.0250, L501.9910, L500.4100, L503.6550, L500.4050, L100.0500 #### [facility] [address] [place], [address] Cholesterol in HDL [Mass/Vol] 77 mg/dL Normal [facility] Comment on above: Result Comment: The drugs N-Acetylcysteine and Metamizole may falsely depress this assay. Reference Range HDL <40 mg/dL Low HDL Cholesterol HDL >or= 60 mg/dL High HDL Cholesterol Performed By: #### L 501.1400, L502.0250, L501.9910, L500.4100, L503.6550, L500.4050, L100.0500 #### [facility] [address] [place], [address] Cholesterol in LDL [Mass/Vol] 63 mg/dL Normal 0-130 [facility] Comment on above: Performed By: #### L 501.1400, L502.0250, L501.9910, L500.4100, L503.6550, L500.4050, L100.0500 #### [facility] [address] [place], [address] Cholesterol in VLDL [Mass/Vol] 7 mg/dL Normal 5-40 [facility] Comment on above: Performed By: #### L 501.1400, L502.0250, L501.9910, L500.4100, L503.6550, L500.4050, L100.0500 #### [facility] [address] [place], [address] Triglyceride [Mass/Vol] 37 mg/dL Normal [facility] Comment on above: Result Comment: The drugs N-Acetylcysteine and Metamizole may falsely depress this assay. Serum Triglycerides Reference Interval Normal <150 mg/dL Borderline high 150 - 199 mg/dL High 200 - 499 mg/dL Very High > or = 500 mg/dL Performed By: #### L 501.1400, L502.0250, L501.9910, L500.4100, L503.6550, L500.4050, L100.0500 #### [facility] [address] [place], [address] Microalb:Creat Ratio,Random URon 10-21-2023 Creatinine [Mass/Vol] 50.80 mg/dL Normal NO RAN GE EST. [facility] Comment on above: Performed By: #### L 501.1400, L502.0250, L501.9910, L500.4100, L503.6550, L500.4050, L100.0500 #### [facility] [address] [place], [address] MALB:CRE 14.3 mg/g CRE Normal <30 mg/g CRE [facility] Comment on above: Performed By: #### L 501.1400, L502.0250, L501.9910, L500.4100, L503.6550, L500.4050, L100.0500 #### [facility] [address] [place], [address] MICROALBUMIN,UR 7.3 mg/L Normal NO RANGE EST. [facility] Comment on above: Performed By: #### L 501.1400, L502.0250, L501.9910, L500.4100, L503.6550, L500.4050, L100.0500 #### [facility] [address] [place], [address] PSA,Total - Annual Screenon 10-21-2023 PSA,TOT SCREEN 0.72 ng/mL Normal 0.00-4.00 [facility] Comment on above: Result Comment: This test was performed using the TPSA assay method for the [employer] chemistry system. Values obtained with different assay methods cannot be used interchangably. When changing PSA assays in the course of monitoring a patient, additional sequential testing should be carried out to confirm baseline values. Performed By: #### L 501.1400, L502.0250, L501.9910, L500.4100, L503.6550, L500.4050, L100.0500 #### [facility] [address] [place], [address] Uric Acidon 10-21-2023 URIC 5.3 mg/dL Normal 3.5-7.2 [facility] Comment on above: Result Comment: The drugs N-Acetylcysteine and Metamizole may falsely depress this assay. Performed By: #### L 501.1400, L502.0250, L501.9910, L500.4100, L503.6550, L500.4050, L100.0500 #### [facility] [address] [place], [address] Basophil percentageOrdered B y: Diomedes Corona on 04-26-2023 Bilirubin [Mass/Vol] 0.60 mg/dL 0.20-1.00 [facility] Comment on above: For patients on eltr ombopag therapy, use of Dimension [place] TBIL is not recommended. Chloride [Moles/Vol] 102 mmol/L 98-107 [facility] Cholesterol [Mass/Vol] 173 mg/dL <200 [facility] Comment on above: <200 mg/dL Desirable 200-240 mg/dL Borderline >240 mg/dL High Risk Glucose [Mass/Vol] 103 mg/dL 74-106 [facility] Comment on above: Fasting Glucose resu lt from 100 to 125 mg/dL suggests IMPAIRED HOMEOSTASIS per A.D.A. criteria. Hemoglobin (Bld) [Mass/Vol] 17.1 g/dL 13.0-16.5 [facility] Potassium [Moles/Vol] 3.9 mmol/L 3.5-5.1 [facility] Protein [Mass/Vol] 7.4 g/dL 6.4-8.2 [facility] Sodium [Moles/Vol] 133 mmol/L 136-145 [facility] Triglyceride [Mass/Vol] 65 mg/dL <199 [facility] Comment on above: The drugs N-Acetylcy steine and Metamizole may falsely depress this assay.Serum Triglycerides Reference Interval Normal <150 mg/dL Borderline high 150 - 199 mg/dL High 200 - 499 mg/dL Very High > or = 500 mg/dL WBC (Bld) [#/Vol] 6.8 10*3/uL 4.4-11.0 [facility] Determination of erythrocyte mean corpuscular volume (MCV)Ordered By: Diomedes Corona on 04-26-2023 MCV (RBC) [Entitic vol] 95.8 fL 80-94 [facility] Erythrocyte distribution wid th ratioOrdered By: Diomedes Corona on 04-26-2023 Erythrocyte distribution width (RBC) [Ratio] 11.8 % 11.6-14.6 [facility] Erythrocyte distribution wid th standard deviationOrdered By: Diomedes Corona on 04-26-2023 Erythrocyte distribution width (RBC) [Entitic vol] 41.0 fL 35.1-43.9 [facility] Hematocrit Auto (Bld) [Volum e fraction]Ordered By: Diomedes Corona on 04-26-2023 Hematocrit (Bld) [Volume fraction] 49.6 % 40-54 [facility] - Chemistry and C hemistry - challengeOrdered By: Diomedes Corona on 04-26-2023 Albumin/Globulin [Mass ratio] 1.1 {ratio} 0.9-2.4 [facility] ALP [Catalytic activity/Vol] 75 U/L 45-117 [facility] ALT [Catalytic activity/Vol] 33 U/L 16-61 [facility] Cholesterol in HDL [Mass/Vol] 82 mg/dL >40 [facility] Comment on above: The drugs N-Acetylcy steine and Metamizole may falsely depress this assay. Reference Range HDL <40 mg/dL Low HDL Cholesterol HDL >or= 60 mg/dL High HDL Cholesterol Cholesterol in LDL [Mass/Vol] 78 mg/dL 0-130 [facility] CO2 [Moles/Vol] 23.0 mmol/L 21.0-32.0 [facility] Globulin (S) [Mass/Vol] 3.6 g/dL 2.2-4.2 [facility] Urea nitrogen/Creatinine [Mass ratio] 10.7 mg/mg 10-20 [facility] - Hematology and Cell countsOrdered By: Diomedes Corona on 04-26-2023 MCH (RBC) [Entitic mass] 33.0 pg 27.0-32.0 [facility] MCHC (RBC) [Mass/Vol] 34.5 g/dL 32-36 [facility] Platelet mean volume (Bld) [Entitic vol] 9.4 fL 6.2-12.0 [facility] Platelets (Bld) [#/Vol] 266 10*3/uL 150-450 [facility] No Panel InformationOrdered By: Diomedes Corona on 04-26-2023 Estimated GFR (MDRD) Amer 164 mL/min >60 [facility] Comment on above: GFR Calc Estimated GFR (MDRD) Non-Af Amer 135 mL/min >60 [facility] Comment on above: Non- GFR Calc Urine Microalbumin/Creatinin e Ratio TNP [facility] Comment on above: Test not performed VLDL Cholesterol 13 mg/dL 5-40 [facility] RBC Auto (Bld) [#/Vol]Ordere d By: Diomedes Corona on 04-26-2023 RBC (Bld) [#/Vol] 5.18 10*6/uL 4.6-6.[address] [facility] Serum or plasma calcium marizol urement (mass/volume)Ordered By: Diomedes Corona on 04-26-2023 Calcium [Mass/Vol] 8.9 mg/dL 8.5-10.1 [facility] Serum or plasma creatinine m easurement (mass/volume)Ordered By: Diomedes Corona on 04-26-2023 Creatinine [Mass/Vol] 0.65 mg/dL 0.70-1.30 [facility] Comment on above: The validity of the calculated GFR & GFRAA in patients over 70 years has not been determined. Clinical correlation is essential. Serum or plasma urea nitroge n measurement (mass/volume)Ordered By: Diomedes Corona on 04-26-2023 Urea nitrogen [Mass/Vol] 7 mg/dL 7-18 [facility] Serum or plasma uric acid me asurement (mass/volume)Ordered By: Diomedes Corona on 04-26-2023 Urate [Mass/Vol] 5.7 mg/dL 3.5-7.2 [facility] Comment on above: The drugs N-Acetylcy steine and Metamizole may falsely depress this assay. Thin prep Papanicolaou smear with manual screeningOrdered By: Diomedes Corona on 04-26-2023 Thin prep Papanicolaou smear with manual screening 3.8 g/dL 3.2-5.0 [facility] Thin prep Papanicolaou smear with manual screening 22 U/L 15-37 [facility] Thin prep Papanicolaou smear with manual screening 8 5-15 [facility] Thin prep Papanicolaou smear with manual screening < 5.0 mg/L NO RANGE EST. [facility] Urine creatinine measurement (mass/volume)Ordered By: Diomedes Corona on 04-26-2023 Creatinine (U) [Mass/Vol] 27.50 mg/dL NO RANGE EST. [facility] CNPNon 11-12-2022 KANG Telephone ([employer]) SHUKRIYUVAL ([id number]) 1970 M Date Time Provider Department 11/12/22 LAW RENDON During your visit today, we recorded the following information about you: Law Rendon DO 11/12/2022 6:10 PM Signed Can let him know ultrasound of the kidneys normal. He does not have to follow-up here. He can follow-up with his PCP. Again, would strongly encouraged him to try to quit smoking. Please fax a copy of this note along with the lab work I recently ordered and the ultrasound results to his PCP. DO Ruth Payne Brandy 11/14/2022 12:04 PM Signed Unable to reach patient and left a message for patient to call back to receive the below message from . requested information has been faxed to PCP Diomedes Corona CNP at [phone] When patient calls back please relay below message from and then note and close encounter. Melany Meadows LPN 11/15/2022 9:24 AM Signed Left message on identified voicemail to contact office for ultrasound results. TALA Perdomo Kara LPN 11/15/2022 9:35 AM Signed Notified pt, voices understanding. Faxed results and this phone note to PCP. Cristina Ladd LPN Allergies As of Date: 11/12/2022 (No Known Allergies) Date Reviewed: 11/05/2022 Reviewed by: Abdulaziz Figueroa Ma - Fully Assessed Reason for Visit: Results [95] Prescriptions as of 11/15/2022 - pantoprazole DR (PROTONIX) 40 mg tablet Take 40 mg by mouth once daily. - simvastatin (ZOCOR) 20 mg tablet Take 20 mg by mouth once daily. - cilostazol (PLETAL) 100 mg tablet Take 100 mg by mouth once daily. - losartan (COZAAR) 25 mg tablet Take 25 mg by mouth once daily. - XARELTO 20 mg tablet Take 15 mg by mouth once daily. - multivitamin tablet Take 1 tablet by mouth once daily. Problem List As Of Date 11/12/2022 Noted Resolved Chronic deep vein thrombosis (DVT) of femoral v*01/04/2018 Smoking [F17.200] 01/04/2018 Encounter Status:Closed by LADD, KARA TALA on 11/15/22 Normal [facility] KIDNEY/BLADDERon 11-12-19 US KIDNEY/BLADDER * * *Final Report* * * DATE OF EXAM: Nov 11 2022 2:39PM [facility] 1055 - US KIDNEY/BLADDER / PROCEDURE REASON: multiple diagnoses * * * * Physician Interpretation * * * * EXAMINATION: ULTRASOUND KIDNEYS/BLADDER CLINICAL HISTORY: Essential hypertension. TECHNIQUE: Sonography of the kidneys and urinary bladder was performed. Images were obtained and stored in a permanent archive. MQ: UR_1 COMPARISON: None RESULT: Limitations: Bowel gas. Right Kidney: -Renal length: 12.2 cm -Parenchyma: Normal parenchymal echogenicity. Normal parenchymal thickness. -Collecting system: No hydronephrosis. -Calculus: No echogenic, shadowing calculus. -Lesion: None. Left Kidney: -Renal length: 12.2 cm -Parenchyma: Normal parenchymal echogenicity. Normal parenchymal thickness. -Collecting system: No hydronephrosis. -Calculus: No echogenic, shadowing calculus. -Lesion: None. Bladder: Distended urinary bladder without mass lesion seen. Prevoid volume 134 cc. IMPRESSION: Unremarkable sonographic exam of the kidneys and bladder. Tip Finisher: [facility] Transcribe Date/Time: Nov 12 2022 4:49P Dictated by : LLOYD KENDIRCK MD This examination was interpreted and the report reviewed and electronically signed by: LLOYD KENDRICK MD on Nov 12 2022 4:50PM EST [id number] Normal [facility] CNPMarley 11-08-2022 ARANZAN Telephone (HEMAWS) SHUKRIYUVAL ([id number]) 1970 M Date Time Provider Department 11/08/22 ROBERTOLAW Jaycee HEMAWS During your visit today, we recorded the following information about you: MaureenLaw gtz 11/08/2022 11:06 AM Signed Can let him know that his repeat CBC here looked better although not normal. Carboxyhemoglobin level demonstrates that the increase in hemoglobin and hematocrit he experiences from time to time is definitely due to smoking. He should make every effort he can to quit. Please fax a copy of this note along with the recent lab work to his primary care physician. DO Julee Payne Kara LPN 11/09/2022 9:29 AM Signed Note lab and OV faxed to PCP. Left message on pt VM to return call regarding labs. Melany Potts LPN, LPN 11/09/2022 12:41 PM Signed Spoke with pt. He is aware of lab results and the need to quit smoking. Pt. Voiced understanding. Questioned if he is to keep ultrasound appt. For . Informed he is. Melany Gonzales LPN Allergies As of Date: 11/08/2022 (No Known Allergies) Date Reviewed: 11/05/2022 Reviewed by: Abdulaziz Figueroa Ma - Fully Assessed Reason for Visit: Results [95] Cmt: Carboxyhemoglobin Prescriptions as of 11/09/2022 - pantoprazole DR (PROTONIX) 40 mg tablet Take 40 mg by mouth once daily. - simvastatin (ZOCOR) 20 mg tablet Take 20 mg by mouth once daily. - cilostazol (PLETAL) 100 mg tablet Take 100 mg by mouth once daily. - losartan (COZAAR) 25 mg tablet Take 25 mg by mouth once daily. - XARELTO 20 mg tablet Take 15 mg by mouth once daily. - multivitamin tablet Take 1 tablet by mouth once daily. Problem List As Of Date 11/08/2022 Noted Resolved Chronic deep vein thrombosis (DVT) of femoral v*01/04/2018 Smoking [F17.200] 01/04/2018 Encounter Status:Closed by MELANY GONZALES on 11/09/[address] [facility] CARBOXYHEMOGLOBIN VENon 09-0 -3 Carboxyhemoglobin (BldV) [Mass fraction] 14.6 % High 0.0-2.0 [facility] Comment on above: Order Comment: Speci men Type: BLOOD SPECIMEN Ordering Facility: [facility] Address: [address] [place] [address] Result Comment: Carb oxyhemoglobin Reference Range for Smokers: 2.0-8.0% Performed By: #### C OWBV #### [facility] CLIA [id number] [facility] [id number] [address] [place] CBC W Auto Differential pane l (Bld)on 11-05-2022 Basophils (Bld) [#/Vol] 0.08 10*3/uL Normal <0.11 [facility] Comment on above: Order Comment: Speci men Type: BLOOD SPECIMEN Ordering Facility: [facility] Address: [address] [place] [address] Performed By: #### 5 7021-8 #### [facility] CLIA [id number] [address] [place] [address] [place] Basophils/100 WBC (Bld) 1.1 % Normal [facility] Comment on above: Order Comment: Speci men Type: BLOOD SPECIMEN Ordering Facility: [facility] Address: [address] [place] [address] Performed By: #### 5 7021-8 #### [facility] CLIA [id number] [address] [place] [address] [place] Differential cell count method Nom (Bld) Auto Normal [facility] Comment on above: Order Comment: Speci men Type: BLOOD SPECIMEN Ordering Facility: [facility] Address: [address] [place] [address] Performed By: #### 5 7021-8 #### [facility] CLIA [id number] [address] [place] [address] [place] Eosinophils (Bld) [#/Vol] 0.04 10*3/uL Normal <0.46 [facility] Comment on above: Order Comment: Speci men Type: BLOOD SPECIMEN Ordering Facility: [facility] Address: [address] Performed By: #### 5 7021-8 #### [facility] CLIA [id number] [address] [place] [address] [place] Eosinophils/100 WBC (Bld) 0.5 % Normal [facility] Comment on above: Order Comment: Speci men Type: BLOOD SPECIMEN Ordering Facility: [facility] Address: [address] Performed By: #### 5 7021-8 #### [facility] CLIA [id number] [address] [place] [address] [place] Erythrocyte distribution width (RBC) [Ratio] 12.3 % Normal 11.5-15.0 [facility] Comment on above: Order Comment: Speci men Type: BLOOD SPECIMEN Ordering Facility: [facility] Address: [address] Performed By: #### 5 7021-8 #### [facility] [id number] [address] [place] [address] [place] Hematocrit (Bld) [Volume fraction] 49.8 % Normal 39.0-51.0 [facility] Comment on above: Order Comment: Speci men Type: BLOOD SPECIMEN Ordering Facility: [facility] Address: [address] Performed By: #### 5 7021-8 #### [facility] [id number] [address] [place] [address] [place] Hemoglobin (Bld) [Mass/Vol] 17.5 g/dL High 13.0-17.0 [facility] Comment on above: Order Comment: Speci men Type: BLOOD SPECIMEN Ordering Facility: [facility] Address: [address] [place], [place] [address] Performed By: #### 5 7021-8 #### [facility] CLIA [id number] [address] [place] [address] [place] Immature granulocytes (Bld) [#/Vol] 0.03 10*3/uL Normal <0.10 [facility] Comment on above: Order Comment: Speci men Type: BLOOD SPECIMEN Ordering Facility: [facility] Address: [address] [address] Performed By: #### 5 7021-8 #### [facility] CLIA [id number] [address] [place] [address] [place] Immature granulocytes/100 WBC (Bld) 0.4 % Normal [facility] Comment on above: Order Comment: Speci men Type: BLOOD SPECIMEN Ordering Facility: [facility] Address: [address] Performed By: #### 5 7021-8 #### [facility] CLIA [id number] [address] [place] [address] [place] Lymphocytes (Bld) [#/Vol] 2.29 10*3/uL Normal 1.00-4.00 [facility] Comment on above: Order Comment: Speci men Type: BLOOD SPECIMEN Ordering Facility: [facility] Address: [address] Performed By: #### 5 7021-8 #### [facility] CLIA [id number] [address] [place] [address] [place] Lymphocytes/100 WBC (Bld) 30.6 % Normal [facility] Comment on above: Order Comment: Speci men Type: BLOOD SPECIMEN Ordering Facility: [facility] Address: [address] Performed By: #### 5 7021-8 #### [facility] CLIA [id number] [address] [place] [address] [place] MCH (RBC) [Entitic mass] 33.1 pg Normal 26.0-34.0 [facility] Comment on above: Order Comment: Speci men Type: BLOOD SPECIMEN Ordering Facility: [facility] Address: [address] [place] [address] Performed By: #### 5 7021-8 #### [facility] CLIA [id number] [address] [place] [address] [place] MCHC (RBC) [Mass/Vol] 35.1 g/dL Normal 30.5-36.0 [facility] Comment on above: Order Comment: Speci men Type: BLOOD SPECIMEN Ordering Facility: [facility] Address: [address] [place] [address] Performed By: #### 5 7021-8 #### [facility] CLIA [id number] [address] [place] [address] [place] MCV (RBC) [Entitic vol] 94.1 fL Normal 80.0-100.0 [facility] Comment on above: Order Comment: Speci men Type: BLOOD SPECIMEN Ordering Facility: [facility] Address: [address] [place] [address] Performed By: #### 5 7021-8 #### [facility] CLIA [id number] [address] [place] [address] [place] Monocytes (Bld) [#/Vol] 0.76 10*3/uL Normal <0.87 [facility] Comment on above: Order Comment: Speci men Type: BLOOD SPECIMEN Ordering Facility: [facility] Address: [address] [place] [address] Performed By: #### 5 7021-8 #### [facility] CLIA [id number] [address] [place] [address] [place] Monocytes/100 WBC (Bld) 10.2 % Normal [facility] Comment on above: Order Comment: Speci men Type: BLOOD SPECIMEN Ordering Facility: [facility] Address: [address] Performed By: #### 5 7021-8 #### [facility] CLIA [id number] [address] [place] [address] [place] Neutrophils (Bld) [#/Vol] 4.28 10*3/uL Normal 1.45-7.50 [facility] Comment on above: Order Comment: Speci men Type: BLOOD SPECIMEN Ordering Facility: [facility] Address: [address] [address] Performed By: #### 5 7021-8 #### [facility] CLIA [id number] [address] [place] [address] [place] Neutrophils/100 WBC (Bld) 57.2 % Normal [facility] Comment on above: Order Comment: Speci men Type: BLOOD SPECIMEN Ordering Facility: [facility] Address: [address] Performed By: #### 5 7021-8 #### [facility] CLIA [id number] [address] [place] [address] [place] Nucleated RBC (Bld) [#/Vol] 10*3/uL Normal <0.01 [facility] Comment on above: Order Comment: Speci men Type: BLOOD SPECIMEN Ordering Facility: [facility] Address: [address] Performed By: #### 5 7021-8 #### [facility] CLIA [id number] [address] [place] [address] [place] Nucleated RBC/100 WBC (Bld) [Ratio] 0.0 /[address] [facility] Comment on above: Order Comment: Speci men Type: BLOOD SPECIMEN Ordering Facility: [facility] Address: [address] Performed By: #### 5 7021-8 #### [facility] CLIA [id number] [address] [place] [address] [place] Platelet mean volume (Bld) [Entitic vol] 8.9 fL Low 9.0-12.7 [facility] Comment on above: Order Comment: Speci men Type: BLOOD SPECIMEN Ordering Facility: [facility] Address: [address] [place] [address] Performed By: #### 5 7021-8 #### [facility] CLIA [id number] [address] [place] [address] [place] Platelets (Bld) [#/Vol] 260 10*3/uL Normal 150-400 [facility] Comment on above: Order Comment: Speci men Type: BLOOD SPECIMEN Ordering Facility: [facility] Address: [address] [place] [address] Performed By: #### 5 7021-8 #### [facility] CLIA [id number] [address] [place] [address] [place] RBC (Bld) [#/Vol] 5.29 10*6/uL Normal 4.20-6.00 [facility] Comment on above: Order Comment: Speci men Type: BLOOD SPECIMEN Ordering Facility: [facility] Address: [address] [place] [address] Performed By: #### 5 7021-8 #### [facility] CLIA [id number] [address] [place] [address] [place] WBC (Bld) [#/Vol] 7.48 10*3/uL Normal 3.70-11.00 [facility] Comment on above: Order Comment: Speci men Type: BLOOD SPECIMEN Ordering Facility: [facility] Address: [address] [place] [address] Performed By: #### 5 7021-8 #### [facility] CLIA [id number] [address] [place] [address] [place] CNOVSPon 11-05-2022 CNOVSP Visit (SP) Office (HEMAWS) YUVAL WATT ([id number]) 1970 M Date Time Provider Department 11/05/22 11:20 AM LAW RENDON During your visit today, we recorded the following information about you: Temperature Pulse Blood pressure Weight 99 degrees 80/minute 175/83 103 kg Height 1.78 m Law Rendon DO 11/05/2022 1:20 PM Signed Diagnosis: 1) Recurrent DVT. On indefinite anticoagulation. 2) Elevated Hgb/Hct. HPI: The patient is a 52 yo male with PMH significant for PAD, HTN, gout (~episode a year) and smoking. summer, patient had onset of right posterior lower chest pain. Presented to ED at [facility] with that complaint. CT scan showed normal [...] sided inguinal hernia repair with mesh at [facility] 08/25/2017. About a week later, was on [...] ?C (99 ?F), height 178 cm (5' 10.08), weight 103 kg (227 lb), SpO2 95 [...] half a day. He has greater than 43-mrlt-brpo history of smoking and is over the age of 50. -No previous testing for obstructive sleep apnea. -He has uncontrolled hypertension. Does not take blood pressure at home. -Qualifies to start annual low-do (more content not included)... Normal [facility] Urinalysis complete panel (U )on 11-05-2022 Bilirubin Ql (U) Negative Normal Negative [facility] Comment on above: Order Comment: Speci men Type: URINE SPECIMEN Ordering Facility: [facility] Address: [address] [place] [address] Performed By: #### 2 4356-8 #### [facility] CLIA [id number] [address] [place] [address] [place] Clarity (Unsp spec) Clear Normal Clear [facility] Comment on above: Order Comment: Speci men Type: URINE SPECIMEN Ordering Facility: [facility] Address: [address] [address] Performed By: #### 2 4356-8 #### [facility] CLIA [id number] [address] [place] [address] [place] Color (U) Colorless Normal Yellow [facility] Comment on above: Order Comment: Speci men Type: URINE SPECIMEN Ordering Facility: [facility] Address: [address] [place] [address] Performed By: #### 2 4356-8 #### [facility] CLIA [id number] [address] [place] [address] [place] Epithelial cells LM.HPF (Urine sed) [#/Area] Few Normal [facility] Comment on above: Order Comment: Speci men Type: URINE SPECIMEN Ordering Facility: [facility] Address: [address] Performed By: #### 2 4356-8 #### [facility] CLIA [id number] [address] [place] [address] [place] Glucose Test strip (U) [Mass/Vol] Negative Normal Trace, Negative [facility] Comment on above: Order Comment: Speci men Type: URINE SPECIMEN Ordering Facility: [facility] Address: [address] Performed By: #### 2 4356-8 #### [facility] CLIA [id number] [address] [place] [address] [place] Hemoglobin Ql (U) Negative Normal Negative, Trace [facility] Comment on above: Order Comment: Speci men Type: URINE SPECIMEN Ordering Facility: [facility] Address: [address] Performed By: #### 2 4356-8 #### [facility] CLIA [id number] [address] [place] [address] [place] Ketones Ql (U) Negative Normal Trace, Negative [facility] Comment on above: Order Comment: Speci men Type: URINE SPECIMEN Ordering Facility: [facility] Address: [address] Performed By: #### 2 4356-8 #### [facility] CLIA [id number] [address] [place] [address] [place] Leukocyte esterase Test strip Ql (U) Negative Normal Negative, 25 Jesusita/uL [facility] Comment on above: Order Comment: Speci men Type: URINE SPECIMEN Ordering Facility: [facility] Address: [address] [place] [address] Performed By: #### 2 4356-8 #### [facility] CLIA [id number] [address] [place] [address] [place] Nitrite Ql (U) Negative Normal Negative [facility] Comment on above: Order Comment: Speci men Type: URINE SPECIMEN Ordering Facility: [facility] Address: [address] [place] [address] Performed By: #### 2 4356-8 #### [facility] CLIA [id number] [address] [place] [address] [place] pH (U) 6.0 [pH] Normal 5.0-8.0 [facility] Comment on above: Order Comment: Speci men Type: URINE SPECIMEN Ordering Facility: [facility] Address: [address] [place], [place] [address] Performed By: #### 2 4356-8 #### [facility] CLIA [id number] [address] [place] [address] [place] Protein (U) [Mass/Vol] Negative Normal Trace , Negative [facility] Comment on above: Order Comment: Speci men Type: URINE SPECIMEN Ordering Facility: [facility] Address: [address] [place], [place] [address] Performed By: #### 2 4356-8 #### [facility] CLIA [id number] [address] [place] [address] [place] RBC LM.HPF (Urine sed) [#/Area] 0-3 /HPF Normal 0-3 /HPF [facility] Comment on above: Order Comment: Speci men Type: URINE SPECIMEN Ordering Facility: [facility] Address: [address] [place], [place] [address] Performed By: #### 2 4356-8 #### [facility] CLIA [id number] [address] [place] [address] [place] Specific gravity (U) [Rel density] 1.006 Normal 1.005-1.030 [facility] Comment on above: Order Comment: Speci men Type: URINE SPECIMEN Ordering Facility: [facility] Address: [address] [place] [address] Performed By: #### 2 4356-8 #### [facility] CLIA [id number] [address] [place] [address] [place] Urobilinogen Ql (U) Negative Normal Negative [facility] Comment on above: Order Comment: Speci men Type: URINE SPECIMEN Ordering Facility: [facility] Address: [address] [place] [address] Performed By: #### 2 4356-8 #### [facility] CLIA [id number] [address] [place] [address] [place] WBC LM.HPF (Urine sed) [#/Area] 0-5 /HPF Normal 0-5 /HPF [facility] Comment on above: Order Comment: Speci men Type: URINE SPECIMEN Ordering Facility: [facility] Address: [address] [place] [address] Performed By: #### 2 4356-8 #### [facility] CLIA [id number] [address] [place] [address] [place] Basophil percentageOrdered B y: Diomedes Legerpkins on 10-20-2022 Bilirubin [Mass/Vol] 0.60 mg/dL 0.20-1.00 [facility] Comment on above: For patients on eltr ombopag therapy, use of Dimension [place] TBIL is not recommended. Chloride [Moles/Vol] 104 mmol/L 98-107 [facility] Cholesterol [Mass/Vol] 163 mg/dL <200 [facility] Comment on above: <200 mg/dL Desirable 200-240 mg/dL Borderline >240 mg/dL High Risk Glucose [Mass/Vol] 97 mg/dL 74-106 [facility] Potassium [Moles/Vol] 3.8 mmol/L 3.5-5.1 [facility] Protein [Mass/Vol] 7.6 g/dL 6.4-8.2 [facility] Sodium [Moles/Vol] 137 mmol/L 136-145 [facility] Triglyceride [Mass/Vol] 61 mg/dL <199 [facility] Comment on above: The drugs N-Acetylcy steine and Metamizole may falsely depress this assay.Serum Triglycerides Reference Interval Normal <150 mg/dL Borderline high 150 - 199 mg/dL High 200 - 499 mg/dL Very High > or = 500 mg/dL WBC (Bld) [#/Vol] 6.8 10*3/uL 4.4-11.0 [facility] Blood erythrocytes count (nu mber/volume)Ordered By: Diomedes Corona on 10-20-2022 RBC (Bld) [#/Vol] 5.47 10*6/uL 4.6-6.[address] [facility] Blood hemoglobin measurement (mass/volume)Ordered By: Diomedes Corona on 10-20-2022 Hemoglobin (Bld) [Mass/Vol] 18.1 g/dL 13.0-16.5 [facility] Comment on above: CRITICAL VALUE VERIF IED. CALLED TO JOSE PORTILLO RN AT THE OFFICE OF DIOMEDES CORONA NP10/20/22 [id number] Maci Mc.RESULTS READ BACK BY SAME . Blood platelet mean volumeOr dered By: Diomedes Corona on 10-20-2022 Platelet mean volume (Bld) [Entitic vol] 9.5 fL 6.2-12.0 [facility] Determination of erythrocyte mean corpuscular volume (MCV)Ordered By: Diomedes Corona on 10-20-2022 MCV (RBC) [Entitic vol] 96.0 fL 80-94 [facility] Hematocrit Auto (Bld) [Volum e fraction]Ordered By: Diomedes Corona on 10-20-2022 Hematocrit (Bld) [Volume fraction] 52.5 % 40-54 [facility] - Chemistry and C hemistry - challengeOrdered By: Diomedes Corona on 10-20-2022 ALP [Catalytic activity/Vol] 81 U/L 45-117 [facility] ALT [Catalytic activity/Vol] 38 U/L 16-61 [facility] CO2 [Moles/Vol] 25.0 mmol/L 21.0-32.0 [facility] Globulin (S) [Mass/Vol] 4.1 g/dL 2.2-4.2 [facility] Urea nitrogen/Creatinine [Mass ratio] 9.4 mg/mg 10-20 [facility] - Hematology and Cell countsOrdered By: Diomedes Corona on 10-20-2022 Erythrocyte distribution width (RBC) [Entitic vol] 43.4 fL 35.1-43.9 [facility] Erythrocyte distribution width (RBC) [Ratio] 12.1 % 11.6-14.6 [facility] MCH (RBC) [Entitic mass] 33.1 pg 27.0-32.0 [facility] MCHC Auto (RBC) [Mass/Vol]Or dered By: Diomedes Corona on 10-20-2022 MCHC (RBC) [Mass/Vol] 34.5 g/dL 32-36 [facility] No Panel InformationOrdered By: Diomedes Corona on 10-20-2022 Estimated GFR (MDRD) Amer 168 mL/min >60 [facility] Comment on above: GFR Calc Estimated GFR (MDRD) Non-Af Amer 139 mL/min >60 [facility] Comment on above: Non- GFR Calc Prostate Specific Antigen Screen 0.77 ng/mL 0.00-4.00 [facility] Comment on above: This test was perfor med using the TPSA assay method [facility]. Values obtained with differentassay methods cannot be used interchangably.When changing PSA assays in the course of monitoring apatient, additional sequential testing should be carriedout to confirm baseline values. Urine Microalbumin/Creatinin e Ratio 10.7 mg/g CRE <30 [facility] Platelets bldOrdered By: Pepe Corona on 10-20-2022 Platelets (Bld) [#/Vol] 335 10*3/uL 150-450 [facility] Serum or plasma albumin marizol urement (mass/volume)Ordered By: Diomedes Corona on 10-20-2022 Albumin [Mass/Vol] 3.5 g/dL 3.2-5.0 [facility] Serum or plasma albumin/glob ulin mass ratioOrdered By: Diomedes Corona on 10-20-2022 Albumin/Globulin [Mass ratio] 0.9 {ratio} 0.9-2.4 [facility] Serum or plasma calcium marizol urement (mass/volume)Ordered By: Diomedes Corona on 10-20-2022 Calcium [Mass/Vol] 9.1 mg/dL 8.5-10.1 [facility] Serum or plasma cholesterol in HDL measurement (mass/volume)Ordered By: Diomedes Corona on 10-20-2022 Cholesterol in HDL [Mass/Vol] 72 mg/dL >40 [facility] Comment on above: The drugs N-Acetylcy steine and Metamizole may falsely depress this assay. Reference Range HDL <40 mg/dL Low HDL Cholesterol HDL >or= 60 mg/dL High HDL Cholesterol Serum or plasma cholesterol in VLDL measurement (mass/volume)Ordered By: Diomedes Corona on 10-20-2022 Cholesterol in VLDL [Mass/Vol] 12 mg/dL 5-40 [facility] Serum or plasma creatinine m easurement (mass/volume)Ordered By: Diomedes Corona on 10-20-2022 Creatinine [Mass/Vol] 0.64 mg/dL 0.70-1.30 [facility] Comment on above: The validity of the calculated GFR & GFRAA in patients over 70 years has not been determined. Clinical correlation is essential. Serum or plasma low density lipoprotein (LDL) cholesterol measurement (mass/volume)Ordered By: Diomedes Corona on 10-20-2022 Cholesterol in LDL [Mass/Vol] 79 mg/dL 0-130 [facility] Serum or plasma urea nitroge n measurement (mass/volume)Ordered By: Diomedes Corona on 10-20-2022 Urea nitrogen [Mass/Vol] 6 mg/dL 7-18 [facility] Thin prep Papanicolaou smear with manual screeningOrdered By: Diomedes Corona on 10-20-2022 Thin prep Papanicolaou smear with manual screening 23 U/L 15-37 [facility] Thin prep Papanicolaou smear with manual screening 8 5-15 [facility] Thin prep Papanicolaou smear with manual screening 6.2 mg/L NO RANGE EST. [facility] Urine creatinine measurement (mass/volume)Ordered By: Diomedes Corona on 10-20-2022 Creatinine (U) [Mass/Vol] 57.80 mg/dL NO RANGE EST. [facility] Whole blood hemoglobin A1c/t otal hemoglobin ratio (mass fraction)Ordered By: Diomedes Corona on 10-20-2022 HbA1c (Bld) [Mass fraction] 5.1 % 3.8-5.6 [facility] Comment on above: Normal < 5.7 % Predi abetic 5.7 - 6.4 % Diabetic >or= 6.5 % Please note range changes. Basophil percentageOrdered B y: Diomedes Corona on 04-21-2022 Bilirubin [Mass/Vol] 0.60 mg/dL 0.20-1.00 [facility] Comment on above: For patients on eltr ombopag therapy, use of Dimension [place] TBIL is not recommended. Chloride [Moles/Vol] 101 mmol/L 98-107 [facility] Cholesterol [Mass/Vol] 169 mg/dL <200 [facility] Comment on above: <200 mg/dL Desirable 200-240 mg/dL Borderline >240 mg/dL High Risk Glucose [Mass/Vol] 110 mg/dL 74-106 [facility] Comment on above: Fasting Glucose resu lt from 100 to 125 mg/dL suggests IMPAIRED HOMEOSTASIS per A.D.A. criteria. Potassium [Moles/Vol] 3.9 mmol/L 3.5-5.1 [facility] Protein [Mass/Vol] 8.0 g/dL 6.4-8.2 [facility] Sodium [Moles/Vol] 136 mmol/L 136-145 [facility] Triglyceride [Mass/Vol] 53 mg/dL <199 [facility] Comment on above: The drugs N-Acetylcy steine and Metamizole may falsely depress this assay.Serum Triglycerides Reference Interval Normal <150 mg/dL Borderline high 150 - 199 mg/dL High 200 - 499 mg/dL Very High > or = 500 mg/dL WBC (Bld) [#/Vol] 9.2 10*3/uL 4.4-11.0 [facility] Blood erythrocytes count (nu mber/volume)Ordered By: Diomedes Corona on 04-21-2022 RBC (Bld) [#/Vol] 5.10 10*6/uL 4.6-6.[address] [facility] Blood hemoglobin measurement (mass/volume)Ordered By: Diomedes Corona on 04-21-2022 Hemoglobin (Bld) [Mass/Vol] 16.9 g/dL 13.0-16.5 [facility] Blood platelet mean volumeOr dered By: Diomedes Corona on 04-21-2022 Platelet mean volume (Bld) [Entitic vol] 9.5 fL 6.2-12.0 [facility] Determination of erythrocyte mean corpuscular volume (MCV)Ordered By: Diomedes Corona on 04-21-2022 MCV (RBC) [Entitic vol] 95.7 fL 80-94 [facility] Hematocrit Auto (Bld) [Volum e fraction]Ordered By: Diomedes Corona on 04-21-2022 Hematocrit (Bld) [Volume fraction] 48.8 % 40-54 [facility] - Chemistry and C hemistry - challengeOrdered By: Diomedes Corona on 04-21-2022 ALP [Catalytic activity/Vol] 94 U/L 45-117 [facility] ALT [Catalytic activity/Vol] 25 U/L 16-61 [facility] CO2 [Moles/Vol] 26.0 mmol/L 21.0-32.0 [facility] Globulin (S) [Mass/Vol] 4.4 g/dL 2.2-4.2 [facility] Urea nitrogen/Creatinine [Mass ratio] 10.2 mg/mg 10-20 [facility] - Hematology and Cell countsOrdered By: Diomedes Corona on 04-21-2022 Erythrocyte distribution width (RBC) [Entitic vol] 41.1 fL 35.1-43.9 [facility] Erythrocyte distribution width (RBC) [Ratio] 11.8 % 11.6-14.6 [facility] MCH (RBC) [Entitic mass] 33.1 pg 27.0-32.0 [facility] MCHC Auto (RBC) [Mass/Vol]Or dered By: Diomedes Corona on 04-21-2022 MCHC (RBC) [Mass/Vol] 34.6 g/dL 32-36 [facility] No Panel InformationOrdered By: Diomedes Corona on 04-21-2022 Estimated GFR (MDRD) Amer 155 mL/min >60 [facility] Comment on above: GFR Calc Estimated GFR (MDRD) Non-Af Amer 128 mL/min >60 [facility] Comment on above: Non- GFR Calc Platelets bldOrdered By: Pepe Corona on 04-21-2022 Platelets (Bld) [#/Vol] 317 10*3/uL 150-450 [facility] Serum or plasma albumin marizol urement (mass/volume)Ordered By: Diomedes Corona on 04-21-2022 Albumin [Mass/Vol] 3.6 g/dL 3.2-5.0 [facility] Serum or plasma albumin/glob ulin mass ratioOrdered By: Diomedes Corona on 04-21-2022 Albumin/Globulin [Mass ratio] 0.8 {ratio} 0.9-2.4 [facility] Serum or plasma calcium marizol urement (mass/volume)Ordered By: Diomedes Corona on 04-21-2022 Calcium [Mass/Vol] 9.3 mg/dL 8.5-10.1 [facility] Serum or plasma cholesterol in HDL measurement (mass/volume)Ordered By: Diomedes Corona on 04-21-2022 Cholesterol in HDL [Mass/Vol] 81 mg/dL >40 [facility] Comment on above: The drugs N-Acetylcy steine and Metamizole may falsely depress this assay. Reference Range HDL <40 mg/dL Low HDL Cholesterol HDL >or= 60 mg/dL High HDL Cholesterol Serum or plasma cholesterol in VLDL measurement (mass/volume)Ordered By: Diomedes Corona on 04-21-2022 Cholesterol in VLDL [Mass/Vol] 11 mg/dL 5-40 [facility] Serum or plasma creatinine m easurement (mass/volume)Ordered By: Diomedes Corona on 04-21-2022 Creatinine [Mass/Vol] 0.69 mg/dL 0.70-1.30 [facility] Comment on above: The validity of the calculated GFR & GFRAA in patients over 70 years has not been determined. Clinical correlation is essential. Serum or plasma low density lipoprotein (LDL) cholesterol measurement (mass/volume)Ordered By: Diomedes Corona on 04-21-2022 Cholesterol in LDL [Mass/Vol] 77 mg/dL 0-130 [facility] Serum or plasma urea nitroge n measurement (mass/volume)Ordered By: Diomedes Corona on 04-21-2022 Urea nitrogen [Mass/Vol] 7 mg/dL 7-18 [facility] Thin prep Papanicolaou smear with manual screeningOrdered By: Diomedes Corona on 04-21-2022 Thin prep Papanicolaou smear with manual screening 16 U/L 15-37 [facility] Thin prep Papanicolaou smear with manual screening 9 5-15 [facility] Basophil percentageon 2021 Bilirubin [Mass/Vol] 0.70 mg/dL 0.20-1.00 [facility] Work Phone: Comment on above: For patients on eltr ombopag therapy, use of Dimension [place] TBIL is not recommended. Chloride [Moles/Vol] 101 mmol/L 98-107 [facility] Work Phone: Cholesterol [Mass/Vol] 156 mg/dL <200 [facility] Work Phone: Comment on above: <200 mg/dL Desirable 200-240 mg/dL Borderline >240 mg/dL High Risk Glucose [Mass/Vol] 98 mg/dL 74-106 [facility] Work Phone: Potassium [Moles/Vol] 4.0 mmol/L 3.5-5.1 [facility] Work Phone: Comment on above: Slight Hemolysis, Re sult may be falsely increased. Protein [Mass/Vol] 7.8 g/dL 6.4-8.2 [facility] Work Phone: Sodium [Moles/Vol] 136 mmol/L 136-145 [facility] Work Phone: Triglyceride [Mass/Vol] 31 mg/dL <199 [facility] Work Phone: Comment on above: The drugs N-Acetylcy steine and Metamizole may falsely depress this assay.Serum Triglycerides Reference Interval Normal <150 mg/dL Borderline high 150 - 199 mg/dL High 200 - 499 mg/dL Very High > or = 500 mg/dL WBC (Bld) [#/Vol] 7.0 10*3/uL 4.4-11.0 [facility] Work Phone: Blood erythrocytes count (nu mber/volume)on 10-20-2021 RBC (Bld) [#/Vol] 5.38 10*6/uL 4.6-6.[address] [facility] Work Phone: Blood hemoglobin measurement (mass/volume)on 10-20-2021 Hemoglobin (Bld) [Mass/Vol] 18.0 g/dL 13.0-16.5 [facility] Work Phone: Comment on above: CRITICAL VALUE VERIF IED. CALLED TO ADY ESCALANTE (DIOMEDES MICHAEL'S OFFICE).10/20/21 1516 Anthony Salmon.RESULTS READ BACK BY SAME. Blood platelet mean volumeon 10-20-2021 Platelet mean volume (Bld) [Entitic vol] 9.4 fL 6.2-12.0 [facility] Work Phone: Determination of erythrocyte mean corpuscular volume (MCV)on 10-20-2021 MCV (RBC) [Entitic vol] 95.2 fL 80-94 [facility] Work Phone: Hematocrit Auto (Bld) [Volum e fraction]on 10-20-2021 Hematocrit (Bld) [Volume fraction] 51.2 % 40-54 [facility] Work Phone: Laboratory - Chemistry and C hemistry - challengeon 10-20-2021 ALP [Catalytic activity/Vol] 75 U/L 45-117 [facility] Work Phone: ALT [Catalytic activity/Vol] 57 U/L 16-61 [facility] Work Phone: CO2 [Moles/Vol] 27.0 mmol/L 21.0-32.0 [facility] Work Phone: Globulin (S) [Mass/Vol] 4.1 g/dL 2.2-4.2 [facility] Work Phone: Urea nitrogen/Creatinine [Mass ratio] 10.3 mg/mg 10-20 [facility] Work Phone: Laboratory - Hematology and Cell countson 10-20-2021 Erythrocyte distribution width (RBC) [Entitic vol] 45.0 fL 35.1-43.9 [facility] Work Phone: Erythrocyte distribution width (RBC) [Ratio] 12.8 % 11.6-14.6 [facility] Work Phone: MCH (RBC) [Entitic mass] 33.5 pg 27.0-32.0 [facility] Work Phone: MCHC Auto (RBC) [Mass/Vol]on 10-20-2021 MCHC (RBC) [Mass/Vol] 35.2 g/dL 32-36 [facility] Work Phone: No Panel Informationon 10-20 Estimated GFR (MDRD) Amer 157 mL/min >60 [facility] Work Phone: Comment on above: GFR Calc Estimated GFR (MDRD) Non-Af Amer 130 mL/min >60 [facility] Work Phone: Comment on above: Non- GFR Calc Prostate Specific Antigen Screen 0.74 ng/mL 0.00-4.00 [facility] Work Phone: Comment on above: This test was perfor med using the TPSA assay method for theFOBO chemistry system. Values obtained with differentassay methods cannot be used interchangably.When changing PSA assays in the course of monitoring apatient, additional sequential testing should be carriedout to confirm baseline values. Platelets bldon 10-20-2021 Platelets (Bld) [#/Vol] 271 10*3/uL 150-450 [facility] Work Phone: Review by pathologiston 08-1 6-2022 Pathologist review Isauro (Unsp spec) [Interp] Reviewed [facility] Work Phone: Comment on above: Previous reported re sult: Isidra eyal Edited by: ROSELINE on 10/21/21:1155Polycythemia MacrocytosisClinical correlation necessary.Lincoln Quick M.D. 10/21/21 AMENDED REPORT 10/21/21 1155 PATH REV previously reported as: Isidra eyal Serum or plasma albumin marizol urement (mass/volume)on 10-20-2021 Albumin [Mass/Vol] 3.7 g/dL 3.2-5.0 [facility] Work Phone: Serum or plasma albumin/glob ulin mass ratioon 10-20-2021 Albumin/Globulin [Mass ratio] 0.9 {ratio} 0.9-2.4 [facility] Work Phone: Serum or plasma calcium marizol urement (mass/volume)on 10-20-2021 Calcium [Mass/Vol] 9.3 mg/dL 8.5-10.1 [facility] Work Phone: Serum or plasma cholesterol in HDL measurement (mass/volume)on 10-20-2021 Cholesterol in HDL [Mass/Vol] 84 mg/dL >40 [facility] Work Phone: Comment on above: The drugs N-Acetylcy steine and Metamizole may falsely depress this assay. Reference Range HDL <40 mg/dL Low HDL Cholesterol HDL >or= 60 mg/dL High HDL Cholesterol Serum or plasma cholesterol in VLDL measurement (mass/volume)on 10-20-2021 Cholesterol in VLDL [Mass/Vol] 6 mg/dL 5-40 [facility] Work Phone: Serum or plasma creatinine m easurement (mass/volume)on 10-20-2021 Creatinine [Mass/Vol] 0.68 mg/dL 0.70-1.30 [facility] Work Phone: Comment on above: The validity of the calculated GFR & GFRAA in patients over 70 years has not been determined. Clinical correlation is essential. Serum or plasma low density lipoprotein (LDL) cholesterol measurement (mass/volume)on 10-20-2021 Cholesterol in LDL [Mass/Vol] 66 mg/dL 0-130 [facility] Work Phone: Serum or plasma urea nitroge n measurement (mass/volume)on 10-20-2021 Urea nitrogen [Mass/Vol] 7 mg/dL 7-18 [facility] Work Phone: Thin prep Papanicolaou smear with manual screeningon 10-20-2021 Thin prep Papanicolaou smear with manual screening 32 U/L 15-37 [facility] Work Phone: Comment on above: Slight Hemolysis, Re sult may be falsely increased. Thin prep Papanicolaou smear with manual screening 8 5-15 [facility] Work Phone: .Auto Diffon 01-30-2019 Ammonia (P) [Mass/Vol] 0.70 10 3/mcL Normal 0.15-1.00 [facility] ([place]) Comment on above: Performed By: #### C FADI MARTINEZ ANEU #### [address] [address] #### URIC, LIPID, CMP, GFR #### [address] [address] Basophils (Bld) [#/Vol] 0.10 10 3/mcL Normal 0.00-0.19 [facility] ([place]) Comment on above: Performed By: #### C FADI MARTINEZ ANEU #### [address] [address] #### URIC, LIPID, CMP, GFR #### [address] [address] Basophils/100 WBC (Bld) 1.3 % Normal 0.0-2.5 [facility] ([place]) Comment on above: Performed By: #### C FADI MARTINEZ ANEU #### [address] [address] #### URIC, LIPID, CMP, GFR #### [address] [address] Eosinophils (Bld) [#/Vol] 0.10 10 3/mcL Normal 0.00-0.40 [facility] ([place]) Comment on above: Performed By: #### C FADI MARTINEZ, ANEU #### [address] [address] #### URIC, LIPID, CMP, GFR #### [address] [address] Eosinophils/100 WBC (Bld) 1.5 % Normal 0.0-7.0 [facility] ([place]) Comment on above: Performed By: #### C JUAN, ADIFF, ANEU #### [address] [address] #### URIC, LIPID, CMP, GFR #### [address] [address] Lymphocytes (Bld) [#/Vol] 2.40 10 3/mcL Normal 0.77-3.85 [facility] ([place]) Comment on above: Performed By: #### C JUAN, ADIFF, ANEU #### [address] [address] #### URIC, LIPID, CMP, GFR #### [address] [address] Lymphocytes/100 WBC (Bld) 33.2 % Normal 10.0-50.0 [facility] ([place]) Comment on above: Performed By: #### FADI LUI, ANEU #### [place] [address] #### URIC, LIPID, CMP, GFR #### [address] [address] Monocytes/100 WBC (Bld) 10.2 % Normal 1.7-13.0 [facility] ([place]) Comment on above: Performed By: #### Randall MARTINEZ, ADIFF, ANEU #### [address] [address] #### URIC, LIPID, CMP, GFR #### [address] [address] Neutrophils/100 WBC (Bld) 53.8 % Normal 37.0-80.0 [facility] ([place]) Comment on above: Performed By: #### C FADI MARTINEZ, NNEKA #### [place] [address] [address] #### URIC, LIPID, CMP, GFR #### [address] [address] .GFRon 01-30-2019 GFR 123 ml/min/1.73sqm Normal [facility] ([place]) Comment on above: Result Comment: GFR Population mean for , Non- Americans Ages 20-29 = 116 mL/min/1.73 sq.m. Ages 30-39 = 107 mL/min/1.73 sq.m. Ages 40-49 = 99 mL/min/1.73 sq.m. Ages 50-59 = 93 mL/min/1.73 sq.m. Ages 60-69 = 85 mL/min/1.73 sq.m. Ages 70+ = 75 mL/min/1.73 sq.m. Chronic Kidney Disease: Less than 60 mL/min/1.73 square meters End Stage Renal Disease: Less than 15 mL/min/1.73 square meters Performed By: #### C FADI MARTINEZ, NNEKA #### [place] [address] [address] #### URIC, LIPID, CMP, GFR #### [address] [address] GFR Non- 101 ml/min/1.73sqm Normal [facility] ([place]) Comment on above: Result Comment: GFR Population mean for , Non- Americans Ages 20-29 = 116 mL/min/1.73 sq.m. Ages 30-39 = 107 mL/min/1.73 sq.m. Ages 40-49 = 99 mL/min/1.73 sq.m. Ages 50-59 = 93 mL/min/1.73 sq.m. Ages 60-69 = 85 mL/min/1.73 sq.m. Ages 70+ = 75 mL/min/1.73 sq.m. Chronic Kidney Disease: Less than 60 mL/min/1.73 square meters End Stage Renal Disease: Less than 15 mL/min/1.73 square meters Performed By: #### C FADI MARTINEZ, ANEU #### [address] [address] #### URIC, LIPID, CMP, GFR #### [address] [address] .NEUABSon 01-30-2019 Neutrophils (Bld) [#/Vol] 3.80 10 3/mcL Normal 2.85-6.16 [facility] ([place]) Comment on above: Performed By: #### C BCDELVISIFF, ANEU #### [place] [address] #### URIC, LIPID, CMP, GFR #### [place] [address] CBCon 01-30-2019 Erythrocyte distribution width (RBC) [Ratio] 12.5 % Normal 11.5-14.5 [facility] ([place]) Comment on above: Performed By: #### DELVIS LUIIFF, ANEU #### [place] [address] #### URIC, LIPID, CMP, GFR #### [place] [address] Hematocrit (Bld) [Volume fraction] 56.6 % High 42.0-52.0 [facility] ([place]) Comment on above: Performed By: #### FADI LUI, ANEU #### [place] [address] #### URIC, LIPID, CMP, GFR #### [place] [address] Hemoglobin (Bld) [Mass/Vol] 18.9 G/dL High 14.0-18.0 [facility] ([place]) Comment on above: Performed By: #### Randall BC, ADIFF, ANEU #### [place] [address] #### URIC, LIPID, CMP, GFR #### [place] [address] MCH (RBC) [Entitic mass] 32.7 pg High 27.0-31.2 [facility] ([place]) Comment on above: Performed By: #### FADI LUI, ANEU #### [address] [address] #### URIC, LIPID, CMP, GFR #### [address] [address] MCHC (RBC) [Mass/Vol] 33.4 G/dL Normal 31.8-35.4 [facility] ([place] Comment on above: Performed By: #### FADI LUI, ANEU #### [place] [address] #### URIC, LIPID, CMP, GFR #### [address] [address] MCV (RBC) [Entitic vol] 98.0 fL High 80.0-94.0 [facility] ([place]) Comment on above: Performed By: #### FADI LUI, ANEU #### [place] [address] #### URIC, LIPID, CMP, GFR #### [place] [address] Platelet mean volume (Bld) [Entitic vol] 8.3 fL Normal 7.4-10.4 [facility] ([place]) Comment on above: Performed By: #### FADI LUI, ANEU #### [place] [address] #### URIC, LIPID, CMP, GFR #### [address] [address] Platelets (Bld) [#/Vol] 245 10 3/mcL Normal 130-400 [facility] ([place]) Comment on above: Performed By: #### FADI LUI, ANEU #### [place] [id number] #### URIC, LIPID, CMP, GFR #### [place] [id number] RBC (Bld) [#/Vol] 5.78 10 6/mcL Normal 4.04-6.13 [facility] ([place]) Comment on above: Performed By: #### C FADI MARTINEZ, ANEU #### [address] [address] #### URIC, LIPID, CMP, GFR #### [address] [address] WBC (Bld) [#/Vol] 7.10 10 3/mcL Normal 4.60-10.80 [facility] ([place]) Comment on above: Performed By: #### C FADI MARTINEZ, ANEU #### [place] [address] #### URIC, LIPID, CMP, GFR #### [address] [address] CMPon 01-30-2019 Albumin [Mass/Vol] 4.0 G/dL Normal 3.5-5.0 [facility] ([place]) Comment on above: Performed By: #### C FADI MARTINEZ, ANEU #### [place] [address] #### URIC, LIPID, CMP, GFR #### [place] [address] Albumin/Globulin [Mass ratio] 1.2 {ratio} Normal 1.1-2.5 [facility] ([place]) Comment on above: Performed By: #### FADI LUI, ANEU #### [place] [address] #### URIC, LIPID, CMP, GFR #### [address] [address] ALP [Catalytic activity/Vol] 82 U/L Normal 40-135 [facility] ([place]) Comment on above: Performed By: #### DELVIS LUIIFF, ANEU #### [place] [id number] #### URIC, LIPID, CMP, GFR #### [place] [id number] ALT [Catalytic activity/Vol] 38 U/L High 10-35 [facility] ([place]) Comment on above: Performed By: #### C BC, ADIFF, ANEU #### [address] [address] #### URIC, LIPID, CMP, GFR #### [address] [address] AST [Catalytic activity/Vol] 22 U/L Normal 10-40 [facility] ([place]) Comment on above: Performed By: #### C BC, ADIFF, ANEU #### [address] [address] #### URIC, LIPID, CMP, GFR #### [address] [address] Bili Total 0.5 mg/dL Normal 0.2-1.0 [facility] ([place]) Comment on above: Performed By: #### C BC, ADIFF, ANEU #### [place] [address] #### URIC, LIPID, CMP, GFR #### [address] [address] Calcium [Mass/Vol] 9.4 mg/dL Normal 8.4-10.2 [facility] ([place]) Comment on above: Performed By: #### C BC, ADIFF, ANEU #### [address] [address] #### URIC, LIPID, CMP, GFR #### [address] [address] Chloride [Moles/Vol] 100 mmol/L Normal 98-107 [facility] ([place]) Comment on above: Performed By: #### C BC, ADIFF, ANEU #### [place] [address] #### URIC, LIPID, CMP, GFR #### [address] [address] CO2 [Moles/Vol] 28 mmol/L Normal 22-29 [facility] ([place]) Comment on above: Performed By: #### C BC, ADIFF, ANEU #### [address] [address] #### URIC, LIPID, CMP, GFR #### [address] [address] Creatinine [Mass/Vol] 0.81 mg/dL Normal 0.70-1.30 [facility] [place] Comment on above: Performed By: #### C BC, ADIFF, ANEU #### [address] [address] #### URIC, LIPID, CMP, GFR #### [address] [address] Electrolyte Balance 11.0 mEq/L Normal [facility] ([place]) Comment on above: Performed By: #### C BC, ADIFF, ANEU #### [address] [address] #### URIC, LIPID, CMP, GFR #### [address] [address] Globulin (S) [Mass/Vol] 3.4 G/dL Normal [facility] ([place]) Comment on above: Performed By: #### C BC, ADIFF, ANEU #### [address] [address] #### URIC, LIPID, CMP, GFR #### [address] [address] Glucose [Mass/Vol] 80 mg/dL Normal 70-105 [facility] ([place]) Comment on above: Performed By: #### C BC, ADIFF, ANEU #### [address] [address] #### URIC, LIPID, CMP, GFR #### [address] [address] Potassium [Moles/Vol] 4.6 mmol/L Normal 3.5-5.1 [facility] [place] Comment on above: Performed By: #### C BC, ADIFF, ANEU #### [address] [address] #### URIC, LIPID, CMP, GFR #### [address] [address] Protein [Mass/Vol] 7.4 G/dL Normal 6.4-8.2 [facility] ([place]) Comment on above: Performed By: #### C BC, ADIFF, ANEU #### [address] [address] #### URIC, LIPID, CMP, GFR #### [address] [address] Sodium [Moles/Vol] 139 mmol/L Normal 136-145 [facility] ([place]) Comment on above: Performed By: #### C BC, ADIFF, ANEU #### [address] [address] #### URIC, LIPID, CMP, GFR #### [address] [address] Urea nitrogen [Mass/Vol] 11 mg/dL Normal 7-18 [facility] ([place]) Comment on above: Performed By: #### C BC, ADIFF, ANEU #### [address] [address] #### URIC, LIPID, CMP, GFR #### [address] [address] Urea nitrogen/Creatinine [Mass ratio] 14 ratio Normal 7-27 [facility] ([place]) Comment on above: Performed By: #### C BC, ADIFF, ANEU #### [place] [address] #### URIC, LIPID, CMP, GFR #### [address] [address] LIPIDon 01-30-2019 Cholesterol [Mass/Vol] 159 mg/dL Normal 0-200 [facility] ([place]) Comment on above: Result Comment: Chol esterol Reference Interval: Less than 200 Desirable 200-239 Borderline high risk 240 and above High risk Performed By: #### C BC, ADIFF, ANEU #### [place] [address] #### URIC, LIPID, CMP, GFR #### [address] [address] Cholesterol in HDL [Mass/Vol] 69 mg/dL High 40-60 [facility] ([place]) Comment on above: Performed By: #### C BC, ADIFF, ANEU #### [address] [address] #### URIC, LIPID, CMP, GFR #### [place] [address] Cholesterol in LDL [Mass/Vol] 82 mg/dL Normal 0-130 [facility] ([place]) Comment on above: Performed By: #### C BC, ADIFF, ANEU #### [place] [address] #### URIC, LIPID, CMP, GFR #### [place] [address] Triglyceride [Mass/Vol] 39 mg/dL Normal 0-150 [facility] ([place]) Comment on above: Result Comment: Trig lyceride Reference Interval: Less than 150 Normal 150-199 Borderline high risk 200-499 High risk 500 or higher Very high risk Performed By: #### C BC, ADIFF, ANEU #### [place] [address] #### URIC, LIPID, CMP, GFR #### [address] [address] URICon 01-30-2019 Uric Acid Lvl 6.6 mg/dL Normal 3.5-7.2 [facility] ([place]) Comment on above: Performed By: #### C BC, ADIFF, ANEU #### [place] [address] #### URIC, LIPID, CMP, GFR #### [place] [id number] .Auto Diffon 07-25-2018 Ammonia (P) [Mass/Vol] 0.80 10 3/mcL Normal 0.15-1.00 [facility] ([place]) Comment on above: Performed By: #### C BC, ADIFF, ANEU #### [place] [id number] #### URIC, LIPID, CMP, GFR #### [address] [address] Basophils (Bld) [#/Vol] 0.10 10 3/mcL Normal 0.00-0.19 [facility] ([place]) Comment on above: Performed By: #### C BC, ADIFF, ANEU #### [place] [address] #### URIC, LIPID, CMP, GFR #### [address] [address] Basophils/100 WBC (Bld) 1.0 % Normal 0.0-2.5 [facility] ([place]) Comment on above: Performed By: #### C BC, ADIFF, ANEU #### [place] [address] #### URIC, LIPID, CMP, GFR #### [address] [address] Eosinophils (Bld) [#/Vol] 0.10 10 3/mcL Normal 0.00-0.40 [facility] ([place]) Comment on above: Performed By: #### C BC, ADIFF, ANEU #### [place] [address] #### URIC, LIPID, CMP, GFR #### [address] [address] Eosinophils/100 WBC (Bld) 1.7 % Normal 0.0-7.0 [facility] ([place]) Comment on above: Performed By: #### C BC, ADIFF, ANEU #### [place] [address] #### URIC, LIPID, CMP, GFR #### [address] [address] Lymphocytes (Bld) [#/Vol] 2.00 10 3/mcL Normal 0.77-3.85 [facility] ([place]) Comment on above: Performed By: #### C BC, ADIFF, ANEU #### [place] [id number] #### URIC, LIPID, CMP, GFR #### [address] [address] Lymphocytes/100 WBC (Bld) 26.7 % Normal 10.0-50.0 [facility] ([place]) Comment on above: Performed By: #### C BC, ADIFF, ANEU #### [address] [address] #### URIC, LIPID, CMP, GFR #### [address] [address] Monocytes/100 WBC (Bld) 10.5 % Normal 1.7-13.0 [facility] ([place]) Comment on above: Performed By: #### C BC, ADIFF, ANEU #### [address] [address] #### URIC, LIPID, CMP, GFR #### [address] [address] Neutrophils/100 WBC (Bld) 60.1 % Normal 37.0-80.0 [facility] ([place]) Comment on above: Performed By: #### C BC, ADIFF, ANEU #### [address] [address] #### URIC, LIPID, CMP, GFR #### [address] [address] .GFRon 07-25-2018 GFR 174 ml/min/1.73sqm Normal [facility] ([place]) Comment on above: Result Comment: GFR Population mean for , Non- Americans Ages 20-29 = 116 mL/min/1.73 sq.m. Ages 30-39 = 107 mL/min/1.73 sq.m. Ages 40-49 = 99 mL/min/1.73 sq.m. Ages 50-59 = 93 mL/min/1.73 sq.m. Ages 60-69 = 85 mL/min/1.73 sq.m. Ages 70+ = 75 mL/min/1.73 sq.m. Chronic Kidney Disease: Less than 60 mL/min/1.73 square meters End Stage Renal Disease: Less than 15 mL/min/1.73 square meters Performed By: #### C BC, ADIFF, ANEU #### [address] [address] #### URIC, LIPID, CMP, GFR #### [address] [address] GFR Non- 143 ml/min/1.73sqm Normal [facility] ([place]) Comment on above: Result Comment: GFR Population mean for , Non- Americans Ages 20-29 = 116 mL/min/1.73 sq.m. Ages 30-39 = 107 mL/min/1.73 sq.m. Ages 40-49 = 99 mL/min/1.73 sq.m. Ages 50-59 = 93 mL/min/1.73 sq.m. Ages 60-69 = 85 mL/min/1.73 sq.m. Ages 70+ = 75 mL/min/1.73 sq.m. Chronic Kidney Disease: Less than 60 mL/min/1.73 square meters End Stage Renal Disease: Less than 15 mL/min/1.73 square meters Performed By: #### C BC, ADIFF, ANEU #### [address] [address] #### URIC, LIPID, CMP, GFR #### [address] [address] .NEUABSon 07-25-2018 Neutrophils (Bld) [#/Vol] 4.60 10 3/mcL Normal 2.85-6.16 [facility] ([place]) Comment on above: Performed By: #### C BC, ADIFF, ANEU #### [address] [address] #### URIC, LIPID, CMP, GFR #### [address] [address] CBCon 07-25-2018 Erythrocyte distribution width (RBC) [Ratio] 12.8 % Normal 11.5-14.5 [facility] ([place]) Comment on above: Performed By: #### C BC, ADIFF, ANEU #### [address] [address] #### URIC, LIPID, CMP, GFR #### [place] [address] Hematocrit (Bld) [Volume fraction] 51.6 % Normal 42.0-52.0 [facility] ([place]) Comment on above: Performed By: #### C BC, ADIFF, ANEU #### [place] [address] #### URIC, LIPID, CMP, GFR #### [place] [address] Hemoglobin (Bld) [Mass/Vol] 17.5 G/dL Normal 14.0-18.0 [facility] ([place]) Comment on above: Performed By: #### C JUAN, ADIFF, ANEU #### [place] [address] #### URIC, LIPID, CMP, GFR #### [place] [address] MCH (RBC) [Entitic mass] 33.7 pg High 27.0-31.2 [facility] ([place]) Comment on above: Performed By: #### C JUAN, FADI, ANEU #### [place] [address] #### URIC, LIPID, CMP, GFR #### [place] [address] MCHC (RBC) [Mass/Vol] 34.0 G/dL Normal 31.8-35.4 [facility] [place] Comment on above: Performed By: #### C BC, ADIFF, ANEU #### [place] [address] #### URIC, LIPID, CMP, GFR #### [place] [address] MCV (RBC) [Entitic vol] 99.2 fL High 80.0-94.0 [facility] ([place]) Comment on above: Performed By: #### C JUAN, ADIFF, ANEU #### [place] [address] #### URIC, LIPID, CMP, GFR #### [address] [address] Platelet mean volume (Bld) [Entitic vol] 8.4 fL Normal 7.4-10.4 [facility] ([place]) Comment on above: Performed By: #### C BC, ADIFF, ANEU #### [place] [address] #### URIC, LIPID, CMP, GFR #### [address] [address] Platelets (Bld) [#/Vol] 249 10 3/mcL Normal 130-400 [facility] ([place]) Comment on above: Performed By: #### C BC, ADIFF, ANEU #### [place] [address] #### URIC, LIPID, CMP, GFR #### [place] [address] RBC (Bld) [#/Vol] 5.20 10 6/mcL Normal 4.04-6.13 [facility] ([place]) Comment on above: Performed By: #### C BC, ADIFF, ANEU #### [place] [address] #### URIC, LIPID, CMP, GFR #### [address] [address] WBC (Bld) [#/Vol] 7.60 10 3/mcL Normal 4.60-10.80 [facility] ([place]) Comment on above: Performed By: #### C BC, ADIFF, ANEU #### [place] [address] #### URIC, LIPID, CMP, GFR #### [address] [address] CMPon 07-25-2018 Albumin [Mass/Vol] 3.9 G/dL Normal 3.5-5.0 [facility] ([place]) Comment on above: Performed By: #### C BC, ADIFF, ANEU #### [place] [id number] #### URIC, LIPID, CMP, GFR #### [address] [address] Albumin/Globulin [Mass ratio] 1.1 {ratio} Normal 1.1-2.5 [facility] ([place]) Comment on above: Performed By: #### C BC, ADIFF, ANEU #### [place] [address] #### URIC, LIPID, CMP, GFR #### [address] [address] ALP [Catalytic activity/Vol] 80 U/L Normal 40-135 [facility] [facility] ([place]) Comment on above: Performed By: #### C BC, ADIFF, ANEU #### [place] [address] #### URIC, LIPID, CMP, GFR #### [address] [address] ALT [Catalytic activity/Vol] 36 U/L High 10-35 [facility] ([place]) Comment on above: Performed By: #### C BC, ADIFF, ANEU #### [place] [address] #### URIC, LIPID, CMP, GFR #### [address] [address] AST [Catalytic activity/Vol] 20 U/L Normal 10-40 [facility] ([place]) Comment on above: Performed By: #### C BC, ADIFF, ANEU #### [place] [address] #### URIC, LIPID, CMP, GFR #### [address] [address] Bili Total 0.5 mg/dL Normal 0.2-1.0 [facility] ([place]) Comment on above: Performed By: #### C BC, ADIFF, ANEU #### [place] [address] #### URIC, LIPID, CMP, GFR #### [place] [id number] Calcium [Mass/Vol] 9.1 mg/dL Normal 8.4-10.2 [facility] ([place]) Comment on above: Performed By: #### DELVIS LUIIFF, ANEU #### [address] [address] #### URIC, LIPID, CMP, GFR #### [address] [address] Chloride [Moles/Vol] 104 mmol/L Normal 98-107 [facility] ([place]) Comment on above: Performed By: #### C BC, ADIFF, ANEU #### [address] [address] #### URIC, LIPID, CMP, GFR #### [place] [address] CO2 [Moles/Vol] 28 mmol/L Normal 22-29 [facility] ([place]) Comment on above: Performed By: #### C FADI MARTINEZ, ANEU #### [place] [address] #### URIC, LIPID, CMP, GFR #### [place] [address] Creatinine [Mass/Vol] 0.60 mg/dL Low 0.70-1.30 [facility] [place] Comment [place] above: Performed By: #### C FADI MARTINEZ, ANEU #### [place] [address] #### URIC, LIPID, CMP, GFR #### [address] [address] Electrolyte Balance 10.0 mEq/L Normal [facility] ([place]) Comment on above: Performed By: #### C DELVIS MARTINEZIFF, ANEU #### [address] [address] #### URIC, LIPID, CMP, GFR #### [address] [address] Globulin (S) [Mass/Vol] 3.4 G/dL Normal [facility] ([place]) Comment on above: Performed By: #### C BC, ADIFF, ANEU #### [address] [address] #### URIC, LIPID, CMP, GFR #### [address] [address] Glucose [Mass/Vol] 89 mg/dL Normal 70-105 [facility] ([place]) Comment on above: Performed By: #### C BC, ADIFF, ANEU #### [address] [address] #### URIC, LIPID, CMP, GFR #### [address] [address] Potassium [Moles/Vol] 4.5 mmol/L Normal 3.5-5.1 [facility] [place] above: Performed By: #### C BC, ADIFF, ANEU #### [address] [address] #### URIC, LIPID, CMP, GFR #### [address] [address] Protein [Mass/Vol] 7.3 G/dL Normal 6.4-8.2 [facility] ([place]) Comment on above: Performed By: #### C JUAN, DELVISIFF, ANEU #### [address] [address] #### URIC, LIPID, CMP, GFR #### [address] [address] Sodium [Moles/Vol] 142 mmol/L Normal 136-145 [facility] ([place]) Comment on above: Performed By: #### C BC, ADIFF, ANEU #### [address] [address] #### URIC, LIPID, CMP, GFR #### [address] [address] Urea nitrogen [Mass/Vol] 9 mg/dL Normal 7-18 [facility] ([place]) Comment on above: Performed By: #### C BC, ADIFF, ANEU #### [address] [place] [address] #### URIC, LIPID, CMP, GFR #### [address] [address] Urea nitrogen/Creatinine [Mass ratio] 15 ratio Normal 7-27 [facility] ([place]) Comment on above: Performed By: #### C BC, ADIFF, ANEU #### [address] [address] #### URIC, LIPID, CMP, GFR #### [address] [address] LIPIDon 07-25-2018 Cholesterol [Mass/Vol] 150 mg/dL Normal 0-200 [facility] ([place]) Comment on above: Result Comment: Chol esterol Reference Interval: Less than 200 Desirable 200-239 Borderline high risk 240 and above High risk Performed By: #### C BC, ADIFF, ANEU #### [address] [address] #### URIC, LIPID, CMP, GFR #### [address] [address] Cholesterol in HDL [Mass/Vol] 77 mg/dL High 40-60 [facility] ([place]) Comment on above: Performed By: #### C BC, ADIFF, ANEU #### [address] [address] #### URIC, LIPID, CMP, GFR #### [address] [address] Cholesterol in LDL [Mass/Vol] 67 mg/dL Normal 0-130 [facility] ([place]) Comment on above: Performed By: #### C BC, ADIFF, ANEU #### [address] [address] #### URIC, LIPID, CMP, GFR #### [address] [address] Triglyceride [Mass/Vol] 32 mg/dL Normal 0-150 [facility] ([place]) Comment on above: Result Comment: Trig lyceride Reference Interval: Less than 150 Normal 150-199 Borderline high risk 200-499 High risk 500 or higher Very high risk Performed By: #### C BC, ADIFF, ANEU #### [address] [address] #### URIC, LIPID, CMP, GFR #### [address] [address] URICon 07-25-2018 Uric Acid Lvl 5.5 mg/dL Normal 3.5-7.2 [facility] ([place]) Comment on above: Order Comment: FASTI NG Performed By: #### C BC, ADIFF, ANEU #### [address] [address] #### URIC, LIPID, CMP, GFR #### [address] [address] Basic Metabolic Panlon 09-11 Anion gap 16 mmol/L Normal 9-18 [facility] Comment on above: Performed By: #### B MP, HFP, LIPB ####[facility] [address] [place] [phone] Calcium 9.3 mg/dL Normal 8.5-10.2 [facility] Comment on above: Performed By: #### B MP, HFP, LIPB ####[facility] Ncx[address] [place] [phone] Chloride 98 mmol/L Normal 97-105 [facility] Comment on above: Performed By: #### B MP, HFP, LIPB ####[facility] LaboratoriesRoutine [address] Av[place] [phone] CO2 22 mmol/L Normal 22-30 [facility] Comment on above: Performed By: #### B MP, HFP, LIPB ####[facility] [address] [place] [phone] Creatinine 0.61 mg/dL Low 0.73-1.22 [facility] Comment on above: Performed By: #### B MP, HFP, LIPB ####[facility] [address] [place] [phone] eGFR (non-black) mL/min/{1.73_m2} Normal [facility] Reference [facility] Comment on above: Performed By: #### B MP, HFP, LIPB ####[facility] [address] AveCShannon [place] [phone] Glucose mass conc 92 mg/dL Normal 74-99 [facility] Reference [facility] Comment on above: Performed By: #### B MP, HFP, LIPB ####[facility] [address] [place] [place] Av[place] [phone] Potassium molar conc 4.6 mmol/L Normal 3.7-5.1 [facility] Comment on above: Performed By: #### B MP, HFP, LIPB ####[facility] [address] AvC[place] [phone] Sodium 136 mmol/L Normal 136-144 [facility] Comment on above: Performed By: #### B MP, HFP, LIPB ####[facility] [address] AvStephan[address] [place] [phone] Urea nitrogen 13 mg/dL Normal 9-24 [facility] Comment on above: Performed By: #### B MP, HFP, LIPB ####[facility] [address] Av[place]phan[address] [place] [phone] Hepatic Functn Panelon 09-11 Alanine aminotransferase (ALT) 38 U/L Normal 10-54 [facility] Comment on above: Performed By: #### B MP, HFP, LIPB ####[facility] [address] [place] [phone] Albumin 4.1 g/dL Normal 3.9-4.9 [facility] Comment on above: Performed By: #### B MP, HFP, LIPB ####[facility] [address]CShannon [place]ille [phone] Alkaline phosphatase (ALP) 77 U/L Normal 36-108 [facility] Comment on above: Performed By: #### B MP, HFP, LIPB ####[facility] Av[address]phan[address] [place] [phone] Aspartate aminotransferase (AST) 35 U/L Normal 14-40 [facility] Comment on above: Performed By: #### B MP, HFP, LIPB ####[place] [address] [phone] Bilirubin Ql (U) 0.4 mg/dL Normal 0.2-1.3 [facility] Reference [facility] Comment on above: Performed By: #### B MP, HFP, LIPB ####[place] [phone] Bilirubin,Conjugated <0.2 Normal <0.2 [facility] Comment on above: Performed By: #### B MP, HFP, LIPB ####[place] [phone] Protein 7.7 g/dL Normal 6.3-8.0 [facility] Comment on above: Performed By: #### B MP, HFP, LIPB ####[place] [phone] Lipid Panel, Basicon 017 Cholesterol 144 mg/dL Normal 100-199 [facility] Comment on above: Performed By: #### B MP, HFP, LIPB ####[address] [place] [phone] Cholesterol in VLDL mass conc 10 mg/dL Normal 6-40 [facility] Comment on above: Performed By: #### B MP, HFP, LIPB ####[place] [address] [place] [address]phan[address] [place] [phone] HDL Cholesterol 62 mg/dL Normal >45 [facility] Comment on above: Performed By: #### B MP, HFP, LIPB ####[facility] [address] AveCShannon [place] [phone] LDL Cholesterol 72 mg/dL Normal 60-129 [facility] Comment on above: Performed By: #### B MP, HFP, LIPB ####[facility] [address] AveCShannon [place] [phone] LDL:HDL Ratio 1.16 Normal 0.50-3.55 [facility] Comment on above: Performed By: #### B MP, HFP, LIPB ####[facility]phan[address] [place] [phone] Non HDL Cholesterol 82 mg/dL Low 90-159 [facility] Comment on above: Performed By: #### B MP, HFP, LIPB ####[facility] [address] Av[place]phanie [place] [phone] TC:HDL Ratio 2.32 Normal 1.00-5.00 [facility] Comment on above: Performed By: #### B MP, HFP, LIPB ####[facility] Av[place]phan[address] [place] [phone] Triglyceride 48 mg/dL Normal 30-149 [facility] Comment on above: Performed By: #### B MP, HFP, LIPB ####[facility] [address] [place], [place] [phone] Lipid Panel, Basicon 017 Fasting Time UN Normal [facility] Comment on above: Performed By: #### B MP, HFP, LIPB ####[facility] [address] Av[place], [place] [phone] Vital Signs Date Time Vital Sign Value Performing Clinician Adam roth 04-13-2022 15:10-0500 Body temperature 98.8 [degF] WEB ANALYST-C Diomedes Legerpkins WEB ANALYST Work Phone: [facility] 04-13-2022 15:10-0500 Diastolic blood pressure 78 mm[Hg] WEB ANALYST-C Diomedes Corona WEB ANALYST Work Phone: [facility] 04-13-2022 15:10-0500 Heart rate 78 /min WEB ANALYST-C Diomedes Corona WEB ANALYST Work Phone: [facility] 04-13-2022 15:10-0500 Respiratory rate 16 /min WEB ANALYST-C Diomedes Corona WEB ANALYST Work Phone: [facility] 04-13-2022 15:10-0500 SaO2% (BldA) [Mass fraction] 97 % WEB ANALYST-C Diomedes Tishomingo WEB ANALYST Work Phone: [facility] 04-13-2022 15:10-0500 Systolic blood pressure 129 mm[Hg] WEB ANALYST-C Diomedes Corona WEB ANALYST Work Phone: [facility] 04-13-2022 13:21-0500 Body height 180.34 cm WEB ANALYST-C Diomedes Corona WEB ANALYST Work Phone: [facility] 04-13-2022 13:21-0500 Body mass index (BMI) [Ratio] 32.1 kg/m2 WEB ANALYST-C Diomedes Corona WEB ANALYST Work Phone: [facility] 04-13-2022 13:21-0500 Body weight 104.7 kg WEB ANALYST-C Diomedes Corona WEB ANALYST Work Phone: [facility] 02-11-2022 13:23-0500 Body mass index (BMI) [Ratio] 31.9 kg/m2 WEB ANALYST-C Diomedes Corona WEB ANALYST Work Phone: [facility] 02-11-2022 13:23-0500 Body weight 103.87 kg WEB ANALYST-C Diomedes Corona WEB ANALYST Work Phone: [facility] 02-11-2022 13:23-0500 Diastolic blood pressure 75 mm[Hg] WEB ANALYST-C Diomedes Corona WEB ANALYST Work Phone: [facility] 02-11-2022 13:23-0500 Heart rate 95 /min WEB ANALYST-C Diomedes Corona WEB ANALYST Work Phone: [facility] 02-11-2022 13:23-0500 SaO2% (BldA) [Mass fraction] 92 % WEB ANALYST-C Diomedes Corona WEB ANALYST Work Phone: [facility] 02-11-2022 13:23-0500 Systolic blood pressure 188 mm[Hg] WEB ANALYST-C Diomedes Corona WEB ANALYST Work Phone: [facility] Encounters Encounter Date Encounter Type Care Provider Facility Start: 04-18-2024 End: 04-18-2024 ambulatory Diomedes Corona Facility:[facility] Start: 02-07-2024 End: 02-07-2024 ambulatory Socrates Reyes Facility:[facility] Start: 11-18-2023 End: 11-18-2023 ambulatory Diomedes Corona Facility:[facility] Start: 10-21-2023 End: 10-21-2023 ambulatory Diomedes Corona Facility:[facility] Start: 04-26-2023 End: 04-26-2023 ambulatory [facility] Work Phone: Start: 04-26-2023 End: 04-26-2023 Patient encounter procedure [facility] Work Phone: Start: 12-29-2022 End: 12-29-2022 ambulatory [facility] Work Phone: Start: 12-29-2022 End: 12-29-2022 Patient encounter procedure [facility] Work Phone: Start: 11-12-2022 Telephone encounter Law lucero DO Work Phone: Hematology/Oncology Comment on above: Results Start: 11-11-2022 End: 11-11-2022 ambulatory DIOMEDES CORONA Facility:[facility] Start: 11-11-2022 End: 11-11-2022 Subsequent hospital visit by physician [facility] Work Phone: Radiology Comment on above: Smoking [F17.200] Start: 11-08-2022 Telephone encounter Law lucero DO Work Phone: Hematology/Oncology Comment on above: Results (Carboxyhemo globin) Start: 11-05-2022 End: 11-05-2022 ambulatory DIOMEDES CORONA Facility:[facility] Start: 11-05-2022 End: 11-05-2022 ambulatory LAW RENDON Facility:[facility] Start: 10-20-2022 End: 10-20-2022 ambulatory [facility] Work Phone: Start: 10-20-2022 End: 10-20-2022 Patient encounter procedure [facility] Work Phone: Start: 04-21-2022 End: 04-21-2022 ambulatory WEB ANALYST-C Diomedes Corona WEB ANALYST Work Phone: [facility] Work Phone: Start: 04-21-2022 End: 04-21-2022 Patient encounter procedure WEB ANALYST-Randall Corona WEB ANALYST Work Phone: [facility] Start: 04-13-2022 Non-patient / Non-visit WEB ANALYST-Randall Corona WEB ANALYST Work Phone: [facility] Start: 04-13-2022 End: 04-13-2022 Admission to same day surgery center WEB ANALYST-Randall Corona WEB ANALYST Work Phone: [facility] Start: 04-13-2022 End: 04-13-2022 ambulatory WEB ANALYST-C Diomedes Corona WEB ANALYST Work Phone: [facility] Work Phone: Start: 02-11-2022 End: 02-11-2022 Patient encounter procedure WEB ANALYST-Randall Corona WEB ANALYST Work Phone: [facility] Start: 11-16-2021 End: 11-16-2021 ambulatory [facility] Work Phone: Start: 11-16-2021 End: 11-16-2021 Patient encounter procedure [facility] Start: 10-20-2021 End: 10-20-2021 Patient encounter procedure [facility] [place] Procedures Date Procedure Procedure Detail Performing Clinician Start: 11-11-2022 Us retroperitoneal r eal time w/image complete Law Jaycee Rendon DO Work Phone: Start: 04-13-2022 Colonoscopy WEB ANALYST-C Juana Corona WEB ANALYST Work Phone: Plan of Treatment Date Care Activity Detail Author Start: 11-05-2022 Influenza vaccination [facility] Start: 04-13-2022 Colsc flx w/rmvl of tumor polyp lesion snare tq COLONOSCOPY W/LESION REMOVAL [facility] Start: 04-13-2022 Egd transoral biopsy single/multiple EGD BIOPSY SINGLE/MULTIPLE [facility] Start: 04-13-2022 Patient discharge [facility] Start: 03-07-2022 DEPRESSION ASSESSMENT DEPRESSION ASSESSMENT [facility] Start: 10-20-2021 Assay of prostate specific antigen total ASSAY OF PSA TOTAL [facility] Work Phone: Start: 2019 Influenza vaccination LUNG CANCER SCREENING [facility] Start: 2019 SHINGRIX VACCINE (1 of 2) SHINGRIX VACCINE (1 of 2) [facility] Start: 2014 COLOGUARD (FIT-DNA) COLOGUARD (FIT-DNA) [facility] Start: 2014 Colonoscopy COLONOSCOPY [facility] Start: 2014 COLORECTAL CANCER SCREENING COLORECTAL CANCER SCREENING [facility] Start: [address] COLONOGRAPHY [facility] Start: 2014 DIABETES SCREEN DIABETES SCREEN [facility] Start: 2014 Diabetes Screening Diabetes Screening [facility] Start: 2014 FECAL OCCULT BLOOD FECAL OCCULT BLOOD [facility] Start: 2014 SIGMOIDOSCOPY SIGMOIDOSCOPY [facility] Start: 2004 Lipid 1996 panel - Serum or Plasma Lipid Screening [facility] Start: 2004 LIPID SCREEN LIPID SCREEN [facility] Start: 1988 Urine microalbumin profile [facility] Start: 1987 HEPATITIS C SCREENING HEPATITIS C SCREENING [facility] Start: 1987 HIV SCREENING HIV SCREENING [facility] Start: 1975 PNEUMOCOCCAL (1 - PCV) PNEUMOCOCCAL (1 - PCV) [facility] Start: 1975 Pneumococcal vaccination Pneumococcal Vaccine (1 - PCV) [facility] Start: 1969 COVID-19 VACCINE (#1) COVID-19 VACCINE (#1) [facility] Start: 1969 HEPATITIS B (1 of 3 - 3-dose series) HEPATITIS B (1 of 3 - 3-dose series) [facility] Start: 1969 Hepatitis B Vaccine (1 of 3 - 3-dose series) Hepatitis B Vaccine (1 of 3 - 3-dose series) [facility] Colonoscopy [facility] Patient referral [facility] Work Phone: [facility] c Payers Date Payer Category Payer Self-pay [id number] 2022 Medicaid MEDICAID [facility] MEDICAID [id number] 2022-Present [phone] [address] [place] [address] Medicaid [id number] 2022 Medicare [id number] 2022 Medicare MEDICARE MEDICAR E A AND B [id number] 2022-Present [phone] [place] [address] Medicare [id number] 2016 Unknown [id number] 2016 Unknown [id number] Unknown [id number] Unknown [id number] Unknown [id number] Social History Date Type Detail Facility Start: 09-01-2017 End: 05-05-2022 Tobacco smoking status PRIS Unknown if ever smoked [facility] Start: 1970 Sex Assigned At Male [facility] Start: 01-04-2018 Tobacco smoking stat us PRIS Smokes tobacco daily [facility] History of tobacco use Cigarette Smoker C [facility] Start: 01-04-2018 End: 11-05-2022 Cigarettes smoked current (pack per day) - Reported 1 [facility] Start: 01-04-2018 Tobacco use and exposure Former smokeless tobacco user [facility] End: 01-05-2008 History of tobacco use Snuff User [facility] Start: 11-05-2022 Alcohol intake Current drinke r of alcohol (finding) [facility] Start: 11-05-2022 Tobacco use panel [facility] National Score (1-10 0), lower number is lower risk 80 [facility] Start: 01-04-2019 [facility] Start: 1970 Sex Assigned At Not on file [facility] Medical Equipment Procedure Code Equipment Code Equipment Origin al Text Equipment Identifier Dates MESH,3DMAX RIGHT XL [id number] FDA Start: 08-25-2017 TACKER,SECURE STRAP FDA Start : 08-25-2017 MESH,3DMAX RIGHT XL [id number] FDA Start: 08-25-2017 TACKER,SECURE STRAP FDA Start : 08-25-2017 MESH,3DMAX RIGHT XL [id number] FDA Start: 08-25-2017 TACKER,SECURE STRAP FDA Start : 08-25-2017 MESH,3DMAX RIGHT XL [id number] FDA Start: 08-25-2017 TACKER,SECURE STRAP FDA Start : 08-25-2017 MESH,3DMAX RIGHT XL [id number] FDA Start: 08-25-2017 TACKER,SECURE STRAP FDA Start : 08-25-2017 MESH,3DMAX RIGHT XL [id number] FDA Start: 08-25-2017 TACKER,SECURE STRAP FDA Start : 08-25-2017 MESH,3DMAX RIGHT XL [id number] FDA Start: 08-25-2017 TACKER,SECURE STRAP FDA Start : 08-25-2017 Goals Date Patient Goal Desired Activity /State Mental Status Date Assessment Result Facility 04-13-2022 Cognitive function Voice/Name [facility] Work Phone: Clinical Notes 04-13-2022 to 11-15-2022 Telephone Encounter - Cristina Ladd LPN - 11/15/2022 9:33 AM EDTTelephone Encounter - Melany Gonzales LPN - 11/15/2022 9:23 AM EDTTelephone Encounter - Sarah Olivera - 11/14/2022 12:01 PM EDT Note Date & Type Note Facility 11-15-2022 Miscellaneous Notes Notified pt, voices understanding. Faxed results and this phone note to PCP. Cristina Ladd LPN Left message on identified voicemail to contact office for ultrasound results. Melany Gonzales LPN Unable to reach patient and left a message for patient to call back to receive the below message from . requested information has been faxed to PCP Diomedes Corona CNP at [phone] When patient calls back please relay below [...] the ultrasound results to his PCP. Law Rendon DO documented in this encounter [facility] 11-11-2022 Note HNO ID: [id number] Author: Yissel Diamond RDMS Service: ? Author Type: Manufacturing Engineering Intern Type: Progress Notes Filed: 11/11/2022 4:15 PM Note Text: Radiology Service Progress Note PATIENT NAME: Yuval Watt DATE OF SERVICE: November 11, 2022 TIME: [...] Not applicable SIGNED BY: Yissel Diamond RDMS RVTracee November 11, 2022 4:[address] [facility] 11-11-2022 History of Presen t illness Narrative Radiology Service Progress Note PATIENT NAME: Yuval Watt DATE OF SERVICE: November 11, 2022 TIME: [...] Not applicable SIGNED BY: Yissel Diamond RDMS RVT November 11, 2022 4:15 PM documented in this encounter [facility] 11-09-2022 Miscellaneous Notes Spoke with pt. He is aware of [...] work to his primary care physician. Law Rendon DO documented in this encounter [facility] 11-05-2022 Note HNO ID: [id number] Author: Law Rendon DO Service: ? Author Type: Physician Type: Progress Notes Filed: 11/05/2022 1:20 PM Note Text: Diagnosis: 1) Recurrent DVT. On indefinite anticoagulation. 2) Elevated Hgb/Hct. HPI: The patient is a 52 yo male with PMH significant for PAD, HTN, gout (~episode a year) and smoking. summer, patient had onset of right posterior lower chest pain. Presented to ED at [facility] with that complaint. CT scan showed normal [...] sided inguinal hernia repair with mesh at [facility] 08/25/2017. About a week later, was on [...] ?C (99 ?F), height 178 cm (5' 10.08), weight 103 kg (227 lb), SpO2 95 [...] half a day. He has greater than 16-saxd-qevn history of smoking and is over the [...] cessation with him. (more content not included)... [facility] 04-13-2022 Procedure note [facility] 04-13-2022 Procedure note [facility] 04-13-2022 Procedure note [facility] 04-13-2022 Procedure note [facility] 04-13-2022 History and physi paul note Note Date/Time April 13, 2022 1:37pm [facility] Medical Records Department [address] [place] [address] History & Physical Exam 04/13/22 1337 MR#: [id number] Acct: [id number] Name: YUVAL WATT Rep #:[id number] : 1970 52 From: Raoul Friend DO PCP: ARTHUR [place]ward tus:[facility] [address] History and Physical Date of Admission: 04/13/22 Chief Complaint: needs screening colonoscopy Details: YUVAL WATT, is a 51 M who presents to the office today to establish with GI for needs screening colonoscopy. He has polycythemia vera, hx of DVT, hx of PE. He reports he sees Dr Reyes vascular surgeon annually. Reports he saw hand stemmer Dr Rendon once. He takes cilostazol 100 mg BID and rivaroxaban 15 mgQHS. He has GERD for which he takes pantoprazole 40 mg daily; acid reflux is well controlled. No prior EGD or colonoscopy. He denies nausea, vomiting, hematochezia. No dysphagia. No abdominal pain. Diarrhea when he eats hot peppers, otherwise no diarrhea. No constipation. No melena or hematochezia. ROS Const Constitutional: Positive for weight change; No fatigue ENT ENT: No difficulty swallowing Gastro GI: Positive for bloating, change in bowel habits, diarrhea, heartburn and excessive flatus; No abdominal pain, belching, change in stool character, coffee ground emesis, constipation, cramping, difficulty swallowing, feeling full early, incontinent of stools, Vomiting blood/hematemesis, Blood in stool, loose stools, Black,tarrystools, nausea/dyspepsia, pain with swallowing, vomiting or other Musc Musculoskeletal: No joint pain Skin Skin: No yellowing of the eye or itchy eyes Psych Psychiatric: No anxiety and No depression Endo Endocrine: Positive for weight change; No fatigue Aller/Imm Allergy/Immunologic: No itchy eyes Patrick/Lymp Hematologic/Lymphatic: No easy bleeding or easy bruising Exam Const General: cooperative and comfortable Nutritional Appearance: obese Orientation: alert, awake and oriented x3 HENMT Head: normal to inspection Eyes Sclera: sclerae normal Resp Effort & Inspection: normal respiratory effort GI Inspection: normal to inspection Palpation: soft, no hepatosplenomegaly, no masses and nontender Skin General: no jaundice Quality Reporting Tobacco Screening ([facility] 138) Smoking Status: Current every day smoker Assessment and Plan Assessment and Plan (1) Colonoscopy planned: ?Status:?Acute ?Plan: 51 yr old male needs screening colonoscopy (this will be his first) and EGD to evaluate for reflux esophagitis and Arthur's considering GERD requiring PPI therapy. He is a smoker. He has polycythemia vera with hx of RLE DVT and PE; he is on cilostazol and xarelto, prescribed by primary care. Typically Dr Hong has pt d/c antiplatelet/anticoagulants x 3 days, but pt can continue to take those meds if prescriber deems that necessary.? Office f/u 2 wks after endoscopies. (2) GERD (gastroesophageal reflux disease): ?Status:?Acute ?Plan: as above I have examined the patient and the H&P has been reviewed. There are no clinicalchanges since date of exam. 04/13/22 1337 <Electronically signed by Raoul Hong DO> Cosigner Signature (if applicable): CC: ARTHUR Corona; Raoul Hong DO~ Signed [facility] Work Phone: Evaluation noteNo assessment information available [facility] Work Phone: Evaluation note* Diagnosis Onset Date Resolution Status Colonoscopy planned acute GERD (gastroesophageal reflux disease) acute [facility] Work Phone: Evaluation note* Diagnosis Smoking Tobacco use disorder PVD (peripheral vascular disease) (HCC) Peripheral vascular disease, unspecified Secondary polycythemia Polycythemia, secondary Essential (primary) hypertension Unspecified essential hypertension documented in this encounter [facility] for referral (narrative)* Diagnostic Procedure Only (Routine) - Closed Specialty Diagnoses / Procedures Referred By Contac t Referred To Contact US IMAGING Diagnoses Smoking PVD (peripheral vascular disease) (HCC) Secondary polycythemia Essential (primary) hypertension Procedures US KIDNEY/BLADDER US RETROPERITONEAL REAL TIME W/IMAGE COMPLETE Law Rendon, [address] [place] [address] [place] [address] Referral ID Status Reason Start Date Expiration Date V isits Requested Visits Authorized [id number] Closed Auto-Generate d Referral 11/05/2022 12/05/2023 1 1 [facility] Summary Purpose Family History No Family History Records Found Relationship Condition Age at Onset Recorded Date/T zeny mother Malignant neoplasm of breast Unknown Hypertension Unknown father Diabetes mellitus Unknown Advance Directives No Advanced Directives Records Found Advance Directive Response Recorded Date/ Time Living Will No August 22, 2017 8:19am Power of Reed Cleaner No August 22 8:19am Advance Directive Response Recorded Date/ Time Living Will No April 08 2:37pm Power of Reed Cleaner No April 08, 2022 2:37pm Advance Directive Response Recorded Date/ Time Living Will No April 08 3:37pm Power of Reed Cleaner No April 08, 2022 3:37pm Chief Complaint and Reason for Visit Chief Complaint ATHEROSCLEROSIS Chief Complaint Consult Reason for Visit Colonoscopy planned GERD (gastroesophageal reflux disease) Chief Complaint ATHEROSCLEROSIS OF N ATIVE ARTERIES Additional Source Comments (unrecognized sect ion and content) No Status Records FoundNo Status Records FoundNo Status Records FoundNo Status Records FoundNo Status Records Found INFORMATION SOURCE (unrecogn ized section and content) DATE CREATED AUTHOR 08/31/2017 [facility] DATE CREATED AUTHOR AUTHOR'S ORGANIZ ATION 02/03/2019 [facility] ([place]) DATE CREATED AUTHOR AUTHOR'S ORGANIZ ATION 02/10/2019 [facility] [place] DATE CREATED AUTHOR AUTHOR'S ORGANIZ ATION 11/15/2022 [facility] DATE CREATED AUTHOR AUTHOR'S ORGANIZ ATION 05/05/2024 [facility] Goals (unrecognized section and content) Goals may be documented in a n alternate sectionGoals may be documented in an alternate sectionGoals may be documented in an alternate sectionGoals may be documented in an alternate sectionGoals may be documented in an alternate section Care Teams (unrecognized sec tion and content) Team Status: Active Member Role Status Dates Diomedes Corona WEB ANALYST, WEB ANALYST-C Family Provider Activ e Diomedes Corona WEB ANALYST, WEB ANALYST-C Primary Care Provider Active Team Status: Inactive Member Role Status Dates Diomedes Corona WEB ANALYST, WEB ANALYST-C Primary Care Provider, Referring Provider Active Tiffanie Dyer WEB ANALYST, WEB ANALYST-C Attending Provider Active Team Status: Active Member Role Status Dates Diomedes Corona WEB ANALYST, WEB ANALYST-C Primary Care Provider, Referring Provider Active Dr. Raoul Hong , Attending Provider, Other Prov ider Active Team Status: Inactive Member Role Status Dates Diomedes Corona WEB ANALYST, WEB ANALYST-C Primary Care Provider, Referring Provider Active Dr. Raoul Hong , Attending Provider Active Team Status: Inactive Member Role Status Dates Diomedes Corona WEB ANALYST, WEB ANALYST-C Primary Care Provider, Attending Provider Active Team Status: Inactive Member Role Status Dates Diomedes Corona WEB ANALYST, WEB ANALYST-C Primary Care Provider, Attending Provider, Referring Provider Active [employer] Monitor Relationship Specialty Start Date End Date Diomedes Corona CNP PCP - General Family Medicine 12/27/17 Team Status: Inactive Member Role Status Dates Diomedes Corona WEB ANALYST, WEB ANALYST-C Primary Care Provider Active Dr. Socrates Reyes MD Attending Provider, Referring Provider Active [employer] Bus Monitor Relationship Specialty Start Date End Date Diomedes Corona CNP PCP - General Family Medicine 12/27/17 Source Comments (unrecognize d section and content) In the event this informatio n is protected by the Federal Confidentiality of Alcohol and Drug Abuse Patient Records regulations: The Federal rules restrict any use of the information to criminally investigate or prosecute any alcohol or drug abuse patient.[facility] the event this information is protected by the Federal Confidentiality of Alcohol and Drug Abuse Patient Records regulations: The Federal rules restrict any use of the information to criminally investigate or prosecute any alcohol or drug abuse patient.[facility] Center[facility] the event this information is protected by the Federal Confidentiality of Alcohol and Drug Abuse Patient Records regulations: The Federal rules restrict any use of the information to criminally investigate or prosecute any alcohol or drug abuse patient.[facility] Reason for Visit (unrecogniz ed section and content) Reason Comments Results Carboxyhemoglobin Reason Comments Results Reason Comments Radiology US Specialty Diagnoses / Procedures Referred By Contac t Referred To Contact US IMAGING Diagnoses Smoking PVD (peripheral vascular disease) (HCC) Secondary polycythemia Essential (primary) hypertension Procedures US KIDNEY/BLADDER US RETROPERITONEAL REAL TIME W/IMAGE COMPLETE Law Rendon, DO [address] [place] [address] [place] [address] Referral ID Status Reason Start Date Expiration Date V isits Requested Visits Authorized [id number] Closed Auto-Generate d Referral 11/05/2022 12/05/2023 1 1 FOR RECORDS PERTAINING TO PATIENTS WHO ARE [...] BE BASED ON THE PRIMARY CLINICAL RECORDS. [facility] [employer] [facility]. provides no warranty or guarantee of the accuracy or completeness of information in this document.
== END | disposition home or self-care (01) ==
LOC: MTLAB 13:01
PROVIDERS: PCP Nurse Practitioner Family; Referring Provider Nurse Practitioner Family; Visit Provider Nurse Practitioner Family
DX: Z12.5 Encounter for screening for malignant neoplasm of prostate (principal); I10 Essential (primary) hypertension; D75.1 Secondary polycythemia; E78.5 Hyperlipidemia, unspecified; R73.01 Impaired fasting glucose; M10.9 Gout, unspecified
CPT/HCPCS: 36415; 80053; 80061; 82043; 82570; 84153; 84550; 85027; G0103